=== PATIENT | male | born 1965 | race Caucasian/White ===

== ENCOUNTER → 2017-12-16 09:24 | Outpatient (CLI) | payer OTHER, SELFPAY ==
[2017-12-16 13:14] LABS: Basophils # 0.1 K/mm3 (0-0.2); Basophils % 0.9 % (0.1-2.0); Eosinophils # 0.2 K/mm3 (0.0-0.4); Eosinophils % 3.3 % (0.1-12.0); Hematocrit 43.3 % (42.0-52.0); Hemoglobin 14.2 g/dL (14.1-18.0); Lymphocytes # 0.9 K/mm3 (0.7-4.5); Lymphocytes % 13.1 K/mm3 (10-50); Mean Corpuscular HGB Conc 32.8 g/dL (31.8-35.4); Mean Corpuscular Hemoglobin 29.9 pg (27.0-31.2); Mean Corpuscular Volume 91.3 fl (80-94); Mean Platelet Volume 8.1 fl (7.4-10.4); Monocytes # 0.6 K/mm3 (0.1-1.0); Monocytes % 9.9 % (1.7-9.3); Neutrophils # 4.8 K/mm3 (1.8-7.8); Neutrophils % 72.8 % (37.0-80.0); Platelet Count 342 K/mm3 (142-424); Red Blood Count 4.75 M/mm3 (4.60-6.20); Red Cell Distribution Width 13.6 % (11.5-17.5); White Blood Count 6.5 K/mm3 (4.8-10.8)
[2017-12-16 14:46] LABS: Alanine Aminotransferase 29 U/L (12-78); Albumin/Globulin Ratio 1.5 (1.1-1.8); Alkaline Phosphatase 87 U/L (46-116); Anion Gap 12.3 mEq/L (5-15); Aspartate Amino Transferase 21 U/L (15-37); Bilirubin,Total 0.3 mg/dL (0.2-1.0); Blood Urea Nitrogen 19 mg/dL (7-18); Calcium 8.8 mg/dL (8.5-10.1); Carbon Dioxide 27 mmol/L (21.0-32.0); Chloride 105 mmol/L (98-107); Creatinine,Serum 0.93 mg/dL (0.70-1.30); Estimated Glomerular Filt Rate 85 ml/min (>60); GFR (African American) 103 ML/MIN (>60); Globulin 2.6 gm/dl (1.3-3.2); Glucose 96 mg/dL (74-106); Potassium 4.3 mmoL/L (3.5-5.1); Sodium 140 mmol/L (136-145); Total Protein,Serum 6.6 gm/dL (6.4-8.2)
== END ==
PROVIDERS: PCP Internal Medicine Adolescent Medicine; Visit Provider Internal Medicine Gastroenterology
DX: K50.90 Crohn's disease, unspecified, without complications (principal)
CPT/HCPCS: 36415; 80053; 85025

== ENCOUNTER → 2018-04-29 10:26 | Outpatient (CLI) | payer OTHER, SELFPAY ==
[2018-04-29 14:02] LABS: Basophils % 0.8 % (0.1-2.0); Eosinophils # 0.2 K/mm3 (0.0-0.4); Hematocrit 43.9 % (42.0-52.0); Hemoglobin 14.3 g/dL (14.1-18.0); Lymphocytes % 22.8 K/mm3 (10-50); Mean Corpuscular HGB Conc 32.6 g/dL (31.8-35.4); Mean Corpuscular Hemoglobin 29.6 pg (27.0-31.2); Mean Corpuscular Volume 90.9 fl (80-94); Mean Platelet Volume 8.4 fl (7.4-10.4); Monocytes # 0.3 K/mm3 (0.1-1.0); Monocytes % 6.8 % (1.7-9.3); Neutrophils % 65.7 % (37.0-80.0); Platelet Count 339 K/mm3 (142-424); Red Blood Count 4.83 M/mm3 (4.60-6.20); Red Cell Distribution Width 13.5 % (11.5-17.5); White Blood Count 4.5 K/mm3 (4.8-10.8)
[2018-04-29 14:11] LABS: Alanine Aminotransferase 46 U/L (12-78); Albumin Level 4.3 gm/dL (3.4-5.0); Albumin/Globulin Ratio 1.3 (1.1-1.8); Alkaline Phosphatase 97 U/L (46-116); Anion Gap 14.1 mEq/L (5-15); Aspartate Amino Transferase 34 U/L (15-37); Bilirubin,Total 0.5 mg/dL (0.2-1.0); Blood Urea Nitrogen 23 mg/dL (7-18); Calcium 9.2 mg/dL (8.5-10.1); Carbon Dioxide 24 mmol/L (21.0-32.0); Chloride 105 mmol/L (98-107); Creatinine,Serum 1.09 mg/dL (0.70-1.30); Estimated Glomerular Filt Rate 71 ml/min (>60); GFR (African American) 86 ML/MIN (>60); Globulin 3.2 gm/dl (1.3-3.2); Glucose 126 mg/dL (74-106); Potassium 4.1 mmoL/L (3.5-5.1); Sodium 139 mmol/L (136-145); Total Protein,Serum 7.5 gm/dL (6.4-8.2)
== END ==
PROVIDERS: Visit Provider Internal Medicine Gastroenterology
DX: K50.90 Crohn's disease, unspecified, without complications (principal)
CPT/HCPCS: 36415; 80053; 85025

== ENCOUNTER → 2018-05-19 09:49 | Outpatient (CLI) | payer OTHER, SELFPAY ==
[2018-05-19 13:57] LABS: Basophils % 0.7 % (0.1-2.0); Eosinophils # 0.2 K/mm3 (0.0-0.4); Eosinophils % 4.3 % (0.1-12.0); Hematocrit 42.9 % (42.0-52.0); Hemoglobin 14.3 g/dL (14.1-18.0); Lymphocytes # 1.1 K/mm3 (0.7-4.5); Lymphocytes % 22.2 K/mm3 (10-50); Mean Corpuscular HGB Conc 33.3 g/dL (31.8-35.4); Mean Corpuscular Hemoglobin 30.5 pg (27.0-31.2); Mean Corpuscular Volume 91.6 fl (80-94); Monocytes # 0.3 K/mm3 (0.1-1.0); Monocytes % 6.4 % (1.7-9.3); Neutrophils # 3.4 K/mm3 (1.8-7.8); Neutrophils % 66.4 % (37.0-80.0); Platelet Count 341 K/mm3 (142-424); Red Blood Count 4.68 M/mm3 (4.60-6.20); Red Cell Distribution Width 13.7 % (11.5-17.5); White Blood Count 5.1 K/mm3 (4.8-10.8)
[2018-05-19 14:02] LABS: Alanine Aminotransferase 38 U/L (12-78); Albumin Level 4.1 gm/dL (3.4-5.0); Albumin/Globulin Ratio 1.3 (1.1-1.8); Alkaline Phosphatase 96 U/L (46-116); Anion Gap 13.9 mEq/L (5-15); Aspartate Amino Transferase 27 U/L (15-37); Bilirubin,Total 0.4 mg/dL (0.2-1.0); Blood Urea Nitrogen 19 mg/dL (7-18); Calcium 9.4 mg/dL (8.5-10.1); Carbon Dioxide 26 mmol/L (21.0-32.0); Chloride 106 mmol/L (98-107); Creatinine,Serum 0.93 mg/dL (0.70-1.30); Estimated Glomerular Filt Rate 85 ml/min (>60); GFR (African American) 103 ML/MIN (>60); Globulin 3.1 gm/dl (1.3-3.2); Glucose 98 mg/dL (74-106); Potassium 4.9 mmoL/L (3.5-5.1); Sodium 141 mmol/L (136-145); Total Protein,Serum 7.2 gm/dL (6.4-8.2)
== END ==
PROVIDERS: Visit Provider Internal Medicine Gastroenterology
DX: D72.819 Decreased white blood cell count, unspecified (principal)
CPT/HCPCS: 36415; 80053; 85025

== ENCOUNTER → 2018-10-06 10:15 | Outpatient (CLI) | payer OTHER, SELFPAY ==
[2018-10-06 13:58] LABS: Basophils % 0.9 % (0.1-2.0); Eosinophils # 0.2 K/mm3 (0.0-0.4); Eosinophils % 3.7 % (0.1-12.0); Hematocrit 44.3 % (42.0-52.0); Hemoglobin 14.4 g/dL (14.1-18.0); Lymphocytes # 0.9 K/mm3 (0.7-4.5); Lymphocytes % 21.3 % (10-50); Mean Corpuscular HGB Conc 32.5 g/dL (31.8-35.4); Mean Corpuscular Hemoglobin 29.8 pg (27.0-31.2); Mean Corpuscular Volume 91.7 fl (80-94); Mean Platelet Volume 8.5 fl (7.4-10.4); Monocytes # 0.2 K/mm3 (0.1-1.0); Monocytes % 5.5 % (1.7-9.3); Neutrophils % 68.6 % (37.0-80.0); Platelet Count 363 K/mm3 (142-424); Red Blood Count 4.83 M/mm3 (4.60-6.20); Red Cell Distribution Width 13.2 % (11.5-17.5); White Blood Count 4.3 K/mm3 (4.8-10.8)
[2018-10-06 14:02] LABS: Alanine Aminotransferase 34 U/L (12-78); Albumin Level 4.3 gm/dL (3.4-5.0); Albumin/Globulin Ratio 1.3 (1.1-1.8); Alkaline Phosphatase 105 U/L (46-116); Aspartate Amino Transferase 21 U/L (15-37); Bilirubin,Total 0.5 mg/dL (0.2-1.0); Blood Urea Nitrogen 23 mg/dL (7-18); Calcium 9.4 mg/dL (8.5-10.1); Carbon Dioxide 26 mmol/L (21.0-32.0); Chloride 103 mmol/L (98-107); Creatinine,Serum 0.98 mg/dL (0.70-1.30); Estimated Glomerular Filt Rate 80 ml/min (>60); GFR (African American) 97 ML/MIN (>60); Globulin 3.3 gm/dl (1.3-3.2); Glucose 101 mg/dL (74-106); Sodium 138 mmol/L (136-145); Total Protein,Serum 7.6 gm/dL (6.4-8.2)
[2018-10-06 14:33] LABS: C-Reactive Protein < 0.2 mg/L (0.0-0.9)
[2018-10-07 11:14] LABS: Vitamin B12 657 pg/mL (232-1245)
== END ==
PROVIDERS: PCP Internal Medicine Adolescent Medicine; Visit Provider Internal Medicine Gastroenterology
DX: D72.819 Decreased white blood cell count, unspecified (principal)
CPT/HCPCS: 36415; 80053; 82607; 85025; 86140

== ENCOUNTER → 2018-10-07 09:31 | Outpatient (CLI) | payer OTHER, SELFPAY ==
[2018-10-12 21:27] LABS: Calprotectin, Fecal 78 ug/g (0-120)
== END ==
PROVIDERS: PCP Internal Medicine Adolescent Medicine; Visit Provider Internal Medicine Gastroenterology
DX: D72.819 Decreased white blood cell count, unspecified (principal)
CPT/HCPCS: 83993

== ENCOUNTER → 2019-02-03 08:33 | Outpatient (CLI) | payer OTHER, SELFPAY ==
[2019-02-03 14:01] LABS: Basophils # 0.1 K/mm3 (0-0.2); Basophils % 0.9 % (0.1-2.0); Eosinophils # 0.3 K/mm3 (0.0-0.4); Eosinophils % 4.6 % (0.1-12.0); Hematocrit 41.6 % (42.0-52.0); Hemoglobin 14.2 g/dL (14.1-18.0); Lymphocytes # 1.1 K/mm3 (0.7-4.5); Lymphocytes % 21.5 % (10-50); Mean Corpuscular HGB Conc 34.2 g/dL (31.8-35.4); Mean Corpuscular Hemoglobin 30.2 pg (27.0-31.2); Mean Corpuscular Volume 88.4 fl (80-94); Mean Platelet Volume 8.2 fl (7.4-10.4); Monocytes # 0.2 K/mm3 (0.1-1.0); Monocytes % 3.8 % (1.7-9.3); Neutrophils # 3.7 K/mm3 (1.8-7.8); Neutrophils % 69.3 % (37.0-80.0); Platelet Count 321 K/mm3 (142-424); Red Cell Distribution Width 13.3 % (11.5-17.5); White Blood Count 5.3 K/mm3 (4.8-10.8)
[2019-02-03 14:58] LABS: Alanine Aminotransferase 34 U/L (12-78); Albumin Level 4.2 gm/dL (3.4-5.0); Albumin/Globulin Ratio 1.4 (1.1-1.8); Alkaline Phosphatase 94 U/L (46-116); Anion Gap 14.4 mEq/L (5-15); Aspartate Amino Transferase 14 U/L (15-37); Bilirubin,Total 0.3 mg/dL (0.2-1.0); Blood Urea Nitrogen 20 mg/dL (7-18); Carbon Dioxide 26 mmol/L (21.0-32.0); Chloride 104 mmol/L (98-107); Creatinine,Serum 1.04 mg/dL (0.70-1.30); Estimated Glomerular Filt Rate 74 ml/min (>60); GFR (African American) 90 ML/MIN (>60); Globulin 3.1 gm/dl (1.3-3.2); Glucose 130 mg/dL (74-106); Potassium 4.4 mmoL/L (3.5-5.1); Sodium 140 mmol/L (136-145); Total Protein,Serum 7.3 gm/dL (6.4-8.2)
[2019-02-03 15:00] LABS: C-Reactive Protein < 0.2 mg/L (0.0-0.9)
== END ==
PROVIDERS: PCP Internal Medicine Adolescent Medicine; Visit Provider Internal Medicine Gastroenterology
DX: K50.90 Crohn's disease, unspecified, without complications (principal)
CPT/HCPCS: 36415; 80053; 85025; 86140

== ENCOUNTER → 2019-05-01 10:14 | Outpatient (CLI) | payer OTHER, SELFPAY ==
[2019-05-01 13:35] LABS: Basophils % 0.9 % (0.1-2.0); Eosinophils # 0.2 K/mm3 (0.0-0.4); Hematocrit 42.2 % (42.0-52.0); Hemoglobin 13.6 g/dL (14.1-18.0); Lymphocytes # 1.1 K/mm3 (0.7-4.5); Lymphocytes % 23.3 % (10-50); Mean Corpuscular HGB Conc 32.2 g/dL (31.8-35.4); Mean Corpuscular Hemoglobin 28.4 pg (27.0-31.2); Mean Corpuscular Volume 88.3 fl (80-94); Mean Platelet Volume 8.4 fl (7.4-10.4); Monocytes # 0.4 K/mm3 (0.1-1.0); Monocytes % 7.3 % (1.7-9.3); Neutrophils # 3.1 K/mm3 (1.8-7.8); Neutrophils % 64.7 % (37.0-80.0); Platelet Count 372 K/mm3 (142-424); Red Blood Count 4.77 M/mm3 (4.60-6.20); Red Cell Distribution Width 13.4 % (11.5-17.5); White Blood Count 4.8 K/mm3 (4.8-10.8)
[2019-05-01 15:53] LABS: Alanine Aminotransferase 38 U/L (12-78); Albumin Level 3.9 gm/dL (3.4-5.0); Albumin/Globulin Ratio 1.3 (1.1-1.8); Alkaline Phosphatase 102 U/L (46-116); Anion Gap 12.6 mEq/L (5-15); Aspartate Amino Transferase 25 U/L (15-37); Bilirubin,Total 0.4 mg/dL (0.2-1.0); Blood Urea Nitrogen 21 mg/dL (7-18); Calcium 9.3 mg/dL (8.5-10.1); Carbon Dioxide 26 mmol/L (21.0-32.0); Chloride 105 mmol/L (98-107); Creatinine,Serum 1.05 mg/dL (0.70-1.30); Estimated Glomerular Filt Rate 74 ml/min (>60); GFR (African American) 89 ML/MIN (>60); Globulin 2.9 gm/dl (1.3-3.2); Glucose 93 mg/dL (74-106); Potassium 4.6 mmoL/L (3.5-5.1); Sodium 139 mmol/L (136-145); Total Protein,Serum 6.8 gm/dL (6.4-8.2)
[2019-05-01 16:49] LABS: C-Reactive Protein < 0.2 mg/L (0.0-0.9)
== END ==
PROVIDERS: PCP Internal Medicine Adolescent Medicine; Visit Provider Internal Medicine Gastroenterology
DX: K50.90 Crohn's disease, unspecified, without complications (principal)
CPT/HCPCS: 36415; 80053; 85025; 86140

== ENCOUNTER → 2019-06-23 08:30 | Outpatient (CLI) | payer OTHER, SELFPAY ==
[2019-06-23 13:59] LABS: Alanine Aminotransferase 35 U/L (12-78); Albumin Level 4.4 gm/dL (3.4-5.0); Albumin/Globulin Ratio 1.5 (1.1-1.8); Alkaline Phosphatase 92 U/L (46-116); Anion Gap 14.1 mEq/L (5-15); Aspartate Amino Transferase 31 U/L (15-37); Bilirubin,Total 0.4 mg/dL (0.2-1.0); Blood Urea Nitrogen 23 mg/dL (7-18); Calcium 9.6 mg/dL (8.5-10.1); Carbon Dioxide 28 mmol/L (21.0-32.0); Chloride 103 mmol/L (98-107); Creatinine,Serum 1.02 mg/dL (0.70-1.30); Estimated Glomerular Filt Rate 76 ml/min (>60); GFR (African American) 92 ML/MIN (>60); Glucose 99 mg/dL (74-106); Potassium 5.1 mmoL/L (3.5-5.1); Sodium 140 mmol/L (136-145); Total Protein,Serum 7.4 gm/dL (6.4-8.2)
[2019-06-23 14:12] LABS: Basophils % 0.6 % (0.1-2.0); Eosinophils # 0.3 K/mm3 (0.0-0.4); Eosinophils % 5.7 % (0.1-12.0); Hemoglobin 14.3 g/dL (14.1-18.0); Lymphocytes # 1.2 K/mm3 (0.7-4.5); Lymphocytes % 26.2 % (10-50); Mean Corpuscular HGB Conc 33.2 g/dL (31.8-35.4); Mean Corpuscular Hemoglobin 30.5 pg (27.0-31.2); Mean Corpuscular Volume 91.8 fl (80-94); Mean Platelet Volume 8.3 fl (7.4-10.4); Monocytes # 0.3 K/mm3 (0.1-1.0); Monocytes % 7.1 % (1.7-9.3); Neutrophils # 2.7 K/mm3 (1.8-7.8); Neutrophils % 60.3 % (37.0-80.0); Platelet Count 360 K/mm3 (142-424); Red Blood Count 4.68 M/mm3 (4.60-6.20); Red Cell Distribution Width 13.4 % (11.5-17.5); White Blood Count 4.5 K/mm3 (4.8-10.8)
== END ==
PROVIDERS: PCP Internal Medicine Adolescent Medicine; Visit Provider Internal Medicine Gastroenterology
DX: K50.90 Crohn's disease, unspecified, without complications (principal)
CPT/HCPCS: 36415; 80053; 85025

== ENCOUNTER → 2019-07-29 08:36 | Outpatient (CLI) | payer OTHER, SELFPAY ==
[2019-07-31 06:55] LABS: Calprotectin, Fecal <16 ug/g (0-120)
== END ==
PROVIDERS: Visit Provider Internal Medicine Gastroenterology
DX: K50.90 Crohn's disease, unspecified, without complications (principal)
CPT/HCPCS: 83993

== ENCOUNTER → 2019-11-11 08:32 | Outpatient (CLI) | payer OTHER, SELFPAY ==
[2019-11-11 13:47] LABS: Basophils # 0.1 K/mm3 (0-0.2); Basophils % 1.2 % (0.1-2.0); Eosinophils # 0.2 K/mm3 (0.0-0.4); Eosinophils % 4.2 % (0.1-12.0); Hematocrit 44.2 % (42.0-52.0); Hemoglobin 14.4 g/dL (14.1-18.0); Lymphocytes # 1.1 K/mm3 (0.7-4.5); Lymphocytes % 24.8 % (10-50); Mean Corpuscular HGB Conc 32.5 g/dL (31.8-35.4); Mean Corpuscular Hemoglobin 29.6 pg (27.0-31.2); Mean Platelet Volume 8.5 fl (7.4-10.4); Monocytes # 0.2 K/mm3 (0.1-1.0); Monocytes % 5.5 % (1.7-9.3); Neutrophils # 2.8 K/mm3 (1.8-7.8); Neutrophils % 64.3 % (37.0-80.0); Platelet Count 415 K/mm3 (142-424); Red Blood Count 4.85 M/mm3 (4.60-6.20); Red Cell Distribution Width 13.1 % (11.5-17.5); White Blood Count 4.3 K/mm3 (4.8-10.8)
[2019-11-11 13:51] LABS: Alanine Aminotransferase 23 U/L (12-78); Albumin Level 4.2 gm/dL (3.4-5.0); Albumin/Globulin Ratio 1.4 (1.1-1.8); Alkaline Phosphatase 91 U/L (46-116); Anion Gap 15.7 mEq/L (5-15); Aspartate Amino Transferase 21 U/L (15-37); Bilirubin,Total 0.4 mg/dL (0.2-1.0); Blood Urea Nitrogen 25 mg/dL (7-18); Calcium 9.5 mg/dL (8.5-10.1); Carbon Dioxide 26 mmol/L (21.0-32.0); Chloride 105 mmol/L (98-107); Creatinine,Serum 1.18 mg/dL (0.70-1.30); Estimated Glomerular Filt Rate 64 ml/min (>60); GFR (African American) 78 ML/MIN (>60); Globulin 3.1 gm/dl (1.3-3.2); Glucose 96 mg/dL (74-106); Potassium 4.7 mmoL/L (3.5-5.1); Sodium 142 mmol/L (136-145); Total Protein,Serum 7.3 gm/dL (6.4-8.2)
[2019-11-11 15:18] LABS: C-Reactive Protein < 0.2 mg/dL (0.0-0.9)
== END ==
PROVIDERS: PCP Internal Medicine Adolescent Medicine; Visit Provider Physician Assistant
DX: K50.90 Crohn's disease, unspecified, without complications (principal)
CPT/HCPCS: 36415; 80053; 85025; 86140

== ENCOUNTER → 2020-03-08 09:39 | Outpatient (CLI) | payer OTHER, SELFPAY ==
[2020-03-08 10:01] LABS: Basophils # 0.1 K/mm3 (0-0.2); Basophils % 1.1 % (0.1-2.0); Eosinophils # 0.2 K/mm3 (0.0-0.4); Hematocrit 42.7 % (42.0-52.0); Hemoglobin 13.9 g/dL (14.1-18.0); Mean Corpuscular HGB Conc 32.4 g/dL (31.8-35.4); Mean Corpuscular Hemoglobin 29.1 pg (27.0-31.2); Mean Corpuscular Volume 89.8 fl (80-94); Mean Platelet Volume 7.6 fl (7.4-10.4); Monocytes # 0.5 K/mm3 (0.1-1.0); Monocytes % 7.8 % (1.7-9.3); Neutrophils % 70.1 % (37.0-80.0); Platelet Count 303 K/mm3 (142-424); Red Blood Count 4.76 M/mm3 (4.60-6.20); Red Cell Distribution Width 13.9 % (11.5-17.5); White Blood Count 5.8 K/mm3 (4.8-10.8)
== END ==
PROVIDERS: Visit Provider Internal Medicine Gastroenterology
DX: K50.90 Crohn's disease, unspecified, without complications (principal)
CPT/HCPCS: 36415; 85025

== ENCOUNTER → 2020-03-10 12:44 | Outpatient (CLI) | payer OTHER, SELFPAY ==
[2020-03-10 16:46] LABS: Chloride 103 mmol/L (98-107); Potassium 4.5 mmoL/L (3.5-5.1); Sodium 137 mmol/L (136-145)
[2020-03-10 16:48] LABS: Blood Urea Nitrogen 17 mg/dl (9-20); Estimated Glomerular Filt Rate 88 ml/min (>60); GFR (African American) 106 ML/MIN (>60)
[2020-03-10 16:49] LABS: Alanine Aminotransferase 31 U/L (12-78); Albumin Level 4.4 g/dl (3.5-5.0); Albumin/Globulin Ratio 1.7 (1.1-1.8); Alkaline Phosphatase 85 U/L (38-126); Anion Gap 12.5 mEq/L (5-15); Aspartate Amino Transferase 36 U/L (17-59); Bilirubin,Total 0.6 mg/dl (0.2-1.3); Calcium 9.7 mg/dl (8.4-10.2); Carbon Dioxide 26 mmol/L (22.0-30.0); Globulin 2.6 g/dL (1.3-3.2); Glucose 84 mg/dl (74-100)
== END ==
PROVIDERS: Visit Provider Physician Assistant
DX: K50.90 Crohn's disease, unspecified, without complications (principal)
CPT/HCPCS: 36415; 80053

== ENCOUNTER 2020-04-26 19:37 | Emergency (ER) | payer OTHER, SELFPAY ==
[2020-04-26 19:54] VITALS: BP 140/86; PULSE 80; RESP 20; O2SAT 99; BMI 26.6
--- NOTE | 2020-04-26 20:01 | HMH.EDUTC ---
[facility] Disposition Clinical Impression: Pseudogout Disposition: Home, Self-Care Condition on Discharge: Good Instructions: DI for Gout, DI for Pseudogout, Indomethacin Additional Instructions: NO Ibuprofen for the rest of the night Take Colcrys as prescribed Follow up with Family doctor if no improvement or any worsening of symptoms Return if needed Straight to ER if any life threatening symptoms Prescriptions: Colchicine [Colcrys 0.6mg tablet] 0.6 mg PO DIRECTED #3 tab Transmission Status: Sent to [facility] Referrals: Randy Gates MD [Primary Care Provider] - As needed Time of Disposition: 20:51 Medical Decision Making - Biju Inquiry Pt receiving controlled substance: No Biju was queried for this patient: No Vital Signs: 04/26/20 19:54 Pulse Rate [Right Brachial] 80 Respiratory Rate 20 Blood Pressure [Right Arm] 140/86 Blood Pressure Mean [Right Arm] 104 Blood Pressure Source [Right Arm] Automatic Cuff Blood Pressure Position [Right Arm] Sitting 02 Sat by Pulse Oximetry 99 Oxygen Delivery Method Room Air - Lab Data Lab Results 04/26/20 20:00: Uric Acid 8.1 Orders (Tests/Meds): ED MEDICATIONS Discontinued Medications Generic Name Dose Route Start Last Admin Trade Name Freq PRN Reason Stop Dose Admin Ketorolac Tromethamine 60 mg 04/26/20 20:30 04/26/20 20:53 Toradol 60mg/2ml Vial IM 04/26/20 20:31 Not Given ONCE ONE Ketorolac Tromethamine 30 mg 04/26/20 20:44 04/26/20 20:52 Toradol 60mg/2ml Vial IM 04/26/20 20:45 30 mg ONCE ONE Administration Methylprednisolone Sodium Succinate 125 mg 04/26/20 20:30 04/26/20 20:52 Solu-Medrol 125mg/2ml Vial IM 04/26/20 20:31 125 mg ONCE ONE Administration Medical Decision Narrative: Discussed xray and patient declined no known injury [facility] HPI - General Stated complaint: Pain in left big toe Time Seen by Provider: 04/26/20 20:01 Mode of Arrival: Ambulatory Source of Information: Patient Limitations: No Limitations Description of Symptoms (Recalled from Triage Doc. by RN): PATIENT STATES THAT HE WOKE UP THIS MORNING WITH PAIN AND SWELLING IN HIS LEFT GREAT TOE. NO KNOWN INJURY. HE DOES HAVE A HISTORY OF BEING TREATED FOR GOUT HEENT Symptoms (Recalled from RN notes): No Resp Symptoms (Recalled from RN notes): No Skin Symptoms (Recalled from RN notes): No MS Symptoms (Recalled from RN notes): Yes Functional Status (Recalled from RN notes): WNL - History of Present Illness Provider Complaint: Patient states that he has a history of gout States that he has problems with it on and off States that he woke up this morning with pain and stiffness in his left great toe that has continued to get worse throughout the day Denies known injury - Related Data Home Medications Medication Instructions Recorded Confirmed Amlodipine Besylate [Amlodipine 5 mg PO DAILY 04/26/20 04/26/20 5mg tab] Rosuvastatin Calcium [Crestor 5mg 5 mg PO DAILY 04/26/20 04/26/20 Tablets] azaTHIOprine [azaTHIOprine 50mg 25 mg PO DAILY 04/26/20 04/26/20 Tablet] Previous Rx's Medication Instructions Recorded Colchicine [Colcrys 0.6mg tablet] 0.6 mg PO DIRECTED #3 tab 04/26/20 Allergies Allergy/AdvReac Type Severity Reaction Status Date / Time allopurinol Allergy Verified 04/26/20 19:58 Penicillins Allergy Verified 04/26/20 19:58 - Worker's Comp Is this a Worker's Comp case?: No [facility] History - Hepatitis A Screen Drug use history?: No High risk sexual behaviors?: No History of sexually transmitted infection?: No Currently employed?: No Childcare worker?: No Do you have indoor plumbing?: Yes Do you have electricity?: Yes Attestation statement:: This patient has been screened for Hepatitis A risk factors. I have reviewed the patient's past medical history: Yes - Social History Alcohol Intake: never Occupational Status: other ROS Obtained: Yes All systems reviewed & no add
[2020-04-26 20:16] LABS: Uric Acid 8.1 mg/dl (3.5-8.5)
[2020-04-26 21:10] VITALS: BP 104/86; PULSE 80; RESP 20; TEMP 36.9; O2SAT 99
== END 2020-04-26 21:15 | disposition home or self-care (01) ==
PROVIDERS: Emergency Provider Nurse Practitioner; PCP Internal Medicine Adolescent Medicine
DX: M10.072 Idiopathic gout, left ankle and foot (principal)
CPT/HCPCS: 84550; 96372; 99201; 99202

== ENCOUNTER → 2020-06-29 09:11 | Outpatient (CLI) | payer OTHER, SELFPAY ==
[2020-06-29 14:43] LABS: Alanine Aminotransferase 22 U/L (12-78); Albumin Level 4.4 g/dl (3.5-5.0); Albumin/Globulin Ratio 1.7 (1.1-1.8); Alkaline Phosphatase 89 U/L (38-126); Anion Gap 13.5 mEq/L (5-15); Aspartate Amino Transferase 32 U/L (17-59); Bilirubin,Total 0.5 mg/dl (0.2-1.3); Blood Urea Nitrogen 18 mg/dl (9-20); Calcium 9.7 mg/dl (8.4-10.2); Carbon Dioxide 29 mmol/L (22.0-30.0); Chloride 102 mmol/L (98-107); Estimated Glomerular Filt Rate 88 ml/min (>60); GFR (African American) 106 ML/MIN (>60); Globulin 2.6 g/dL (1.3-3.2); Glucose 87 mg/dl (74-100); Potassium 4.5 mmoL/L (3.5-5.1); Sodium 140 mmol/L (136-145)
[2020-06-29 14:44] LABS: Basophils # 0.1 K/mm3 (0-0.2); Basophils % 0.9 % (0.1-2.0); Eosinophils # 0.2 K/mm3 (0.0-0.4); Eosinophils % 4.3 % (0.1-12.0); Hematocrit 42.2 % (42.0-52.0); Hemoglobin 14.7 g/dL (14.1-18.0); Lymphocytes # 1.2 K/mm3 (0.7-4.5); Lymphocytes % 20.2 % (10-50); Mean Corpuscular HGB Conc 34.9 g/dL (31.8-35.4); Mean Corpuscular Hemoglobin 31.1 pg (27.0-31.2); Mean Corpuscular Volume 89.2 fl (80-94); Mean Platelet Volume 9.4 fl (7.4-10.4); Monocytes # 0.4 K/mm3 (0.1-1.0); Monocytes % 6.2 % (1.7-9.3); Neutrophils # 3.9 K/mm3 (1.8-7.8); Neutrophils % 68.5 % (37.0-80.0); Platelet Count 314 K/mm3 (142-424); Red Blood Count 4.73 M/mm3 (4.60-6.20); Red Cell Distribution Width 13.6 % (11.5-17.5); White Blood Count 5.7 K/mm3 (4.8-10.8)
== END ==
PROVIDERS: Visit Provider Physician Assistant
DX: K50.90 Crohn's disease, unspecified, without complications (principal)
CPT/HCPCS: 36415; 80053; 85025

== ENCOUNTER → 2020-08-03 09:20 | Outpatient (CLI) | payer OTHER, SELFPAY ==
[2020-08-03 10:14] LABS: Basophils # 0.1 K/mm3 (0-0.2); Basophils % 0.9 % (0.1-2.0); Eosinophils # 0.2 K/mm3 (0.0-0.4); Eosinophils % 3.7 % (0.1-12.0); Hematocrit 45.9 % (42.0-52.0); Hemoglobin 14.9 g/dL (14.1-18.0); Lymphocytes % 18.5 % (10-50); Mean Corpuscular HGB Conc 32.6 g/dL (31.8-35.4); Mean Corpuscular Hemoglobin 30.5 pg (27.0-31.2); Mean Corpuscular Volume 93.8 fl (80-94); Mean Platelet Volume 7.7 fl (7.4-10.4); Monocytes # 0.4 K/mm3 (0.1-1.0); Monocytes % 6.5 % (1.7-9.3); Neutrophils % 70.5 % (37.0-80.0); Platelet Count 295 K/mm3 (142-424); Red Blood Count 4.89 M/mm3 (4.60-6.20); Red Cell Distribution Width 13.5 % (11.5-17.5); White Blood Count 5.6 K/mm3 (4.8-10.8)
[2020-08-03 11:25] LABS: Alanine Aminotransferase 28 U/L (12-78); Albumin Level 4.6 g/dl (3.5-5.0); Albumin/Globulin Ratio 1.7 (1.1-1.8); Alkaline Phosphatase 93 U/L (38-126); Aspartate Amino Transferase 36 U/L (17-59); Bilirubin,Total 0.5 mg/dl (0.2-1.3); Blood Urea Nitrogen 17 mg/dl (9-20); Calcium 9.8 mg/dl (8.4-10.2); Carbon Dioxide 28 mmol/L (22.0-30.0); Chloride 105 mmol/L (98-107); Estimated Glomerular Filt Rate 88 ml/min (>60); GFR (African American) 106 ML/MIN (>60); Globulin 2.7 g/dL (1.3-3.2); Glucose 100 mg/dl (74-100); Sodium 141 mmol/L (136-145); Total Protein,Serum 7.3 g/dl (6.3-8.2)
[2020-08-03 11:52] LABS: Thyroid Stimulating Hormone 1.07 uIU/mL (0.465-4.68)
== END ==
PROVIDERS: Visit Provider Internal Medicine Adolescent Medicine
DX: I10 Essential (primary) hypertension (principal); Z79.899 Other long term (current) drug therapy
CPT/HCPCS: 36415; 80053; 84443; 85025

== ENCOUNTER → 2020-10-11 08:58 | Outpatient (CLI) | payer OTHER, SELFPAY ==
[2020-10-11 14:01] LABS: Chloride 103 mmol/L (98-107); Potassium 4.3 mmoL/L (3.5-5.1); Sodium 139 mmol/L (136-145)
[2020-10-11 14:04] LABS: Alanine Aminotransferase 27 U/L (12-78); Albumin Level 4.4 g/dl (3.5-5.0); Albumin/Globulin Ratio 1.5 (1.1-1.8); Alkaline Phosphatase 84 U/L (38-126); Anion Gap 10.3 mEq/L (5-15); Aspartate Amino Transferase 32 U/L (17-59); Bilirubin,Total 0.6 mg/dl (0.2-1.3); Blood Urea Nitrogen 17 mg/dl (9-20); Carbon Dioxide 30 mmol/L (22.0-30.0); Estimated Glomerular Filt Rate 78 ml/min (>60); GFR (African American) 94 ML/MIN (>60); Globulin 2.9 g/dL (1.3-3.2); Total Protein,Serum 7.3 g/dl (6.3-8.2)
[2020-10-11 14:05] LABS: Calcium 9.7 mg/dl (8.4-10.2); Glucose 100 mg/dl (74-100)
[2020-10-11 14:16] LABS: Basophils # 0.1 K/mm3 (0-0.2); Eosinophils # 0.2 K/mm3 (0.0-0.4); Eosinophils % 3.5 % (0.1-12.0); Hematocrit 45.7 % (42.0-52.0); Hemoglobin 15.4 g/dL (14.1-18.0); Lymphocytes # 1.1 K/mm3 (0.7-4.5); Mean Corpuscular HGB Conc 33.7 g/dL (31.8-35.4); Mean Corpuscular Hemoglobin 31.1 pg (27.0-31.2); Mean Corpuscular Volume 92.3 fl (80-94); Mean Platelet Volume 9.3 fl (7.4-10.4); Monocytes # 0.3 K/mm3 (0.1-1.0); Monocytes % 4.6 % (1.7-9.3); Neutrophils % 71.9 % (37.0-80.0); Platelet Count 353 K/mm3 (142-424); Red Blood Count 4.95 M/mm3 (4.60-6.20); Red Cell Distribution Width 13.5 % (11.5-17.5); White Blood Count 5.5 K/mm3 (4.8-10.8)
== END ==
PROVIDERS: Visit Provider Physician Assistant
DX: K50.90 Crohn's disease, unspecified, without complications (principal)
CPT/HCPCS: 36415; 80053; 85025

== ENCOUNTER → 2020-12-15 09:00 | Outpatient (CLI) | payer OTHER, SELFPAY ==
[2020-12-15 14:08] LABS: Chloride 106 mmol/L (98-107)
[2020-12-15 14:09] LABS: Potassium 4.8 mmoL/L (3.5-5.1); Sodium 139 mmol/L (136-145)
[2020-12-15 14:11] LABS: Alanine Aminotransferase 24 U/L (12-78); Aspartate Amino Transferase 29 U/L (17-59); Bilirubin,Total 0.4 mg/dl (0.2-1.3); Blood Urea Nitrogen 17 mg/dl (9-20); Estimated Glomerular Filt Rate 88 ml/min (>60); GFR (African American) 106 ML/MIN (>60)
[2020-12-15 14:12] LABS: Albumin Level 4.2 g/dl (3.5-5.0); Albumin/Globulin Ratio 1.5 (1.1-1.8); Alkaline Phosphatase 93 U/L (38-126); Anion Gap 7.8 mEq/L (5-15); Calcium 9.2 mg/dl (8.4-10.2); Carbon Dioxide 30 mmol/L (22.0-30.0); Globulin 2.8 g/dL (1.3-3.2); Glucose 112 mg/dl (74-100)
[2020-12-15 14:20] LABS: C-Reactive Protein 1.7 mg/L (0-4)
[2020-12-15 14:26] LABS: Basophils # 0.1 K/mm3 (0-0.2); Basophils % 0.8 % (0.1-2.0); Eosinophils # 0.2 K/mm3 (0.0-0.4); Eosinophils % 3.8 % (0.1-12.0); Hematocrit 41.9 % (42.0-52.0); Hemoglobin 13.8 g/dL (14.1-18.0); Lymphocytes % 16.3 % (10-50); Mean Corpuscular Hemoglobin 30.3 pg (27.0-31.2); Mean Corpuscular Volume 91.6 fl (80-94); Mean Platelet Volume 8.7 fl (7.4-10.4); Monocytes # 0.3 K/mm3 (0.1-1.0); Monocytes % 4.4 % (1.7-9.3); Neutrophils # 4.8 K/mm3 (1.8-7.8); Neutrophils % 74.8 % (37.0-80.0); Platelet Count 307 K/mm3 (142-424); Red Blood Count 4.57 M/mm3 (4.60-6.20); Red Cell Distribution Width 13.7 % (11.5-17.5); White Blood Count 6.4 K/mm3 (4.8-10.8)
== END ==
PROVIDERS: Visit Provider Physician Assistant
DX: K50.90 Crohn's disease, unspecified, without complications (principal)
CPT/HCPCS: 36415; 80053; 85025; 86140

== ENCOUNTER → 2020-12-16 09:09 | Outpatient (CLI) | payer OTHER, SELFPAY ==
[2020-12-21 14:57] LABS: H. pylori Stool Ag, EIA Negative (Negative)
[2020-12-21 18:15] LABS: Calprotectin, Fecal 129 ug/g (0-120)
== END ==
PROVIDERS: Visit Provider Physician Assistant
DX: K50.90 Crohn's disease, unspecified, without complications (principal)
CPT/HCPCS: 83993; 87338

== ENCOUNTER → 2021-03-22 08:58 | Outpatient (CLI) | payer OTHER, SELFPAY ==
[2021-03-22 14:47] LABS: Basophils % 0.6 % (0.1-2.0); Eosinophils # 0.2 K/mm3 (0.0-0.4); Eosinophils % 3.5 % (0.1-12.0); Hematocrit 40.5 % (42.0-52.0); Hemoglobin 14.1 g/dL (14.1-18.0); Lymphocytes # 1.1 K/mm3 (0.7-4.5); Lymphocytes % 15.8 % (10-50); Mean Corpuscular HGB Conc 34.7 g/dL (31.8-35.4); Mean Corpuscular Hemoglobin 30.1 pg (27.0-31.2); Mean Corpuscular Volume 86.8 fl (80-94); Mean Platelet Volume 8.9 fl (7.4-10.4); Monocytes # 0.4 K/mm3 (0.1-1.0); Monocytes % 5.3 % (1.7-9.3); Neutrophils % 74.8 % (37.0-80.0); Platelet Count 360 K/mm3 (142-424); Red Blood Count 4.66 M/mm3 (4.60-6.20); Red Cell Distribution Width 13.5 % (11.5-17.5); White Blood Count 6.7 K/mm3 (4.8-10.8)
[2021-03-22 15:15] LABS: Alanine Aminotransferase 27 U/L (12-78); Albumin Level 4.2 g/dl (3.5-5.0); Albumin/Globulin Ratio 1.6 (1.1-1.8); Alkaline Phosphatase 82 U/L (38-126); Anion Gap 11.4 mEq/L (5-15); Aspartate Amino Transferase 30 U/L (17-59); Bilirubin,Total 0.5 mg/dl (0.2-1.3); Blood Urea Nitrogen 19 mg/dl (9-20); Calcium 9.2 mg/dl (8.4-10.2); Carbon Dioxide 26 mmol/L (22.0-30.0); Chloride 106 mmol/L (98-107); Estimated Glomerular Filt Rate 87 ml/min (>60); GFR (African American) 106 ML/MIN (>60); Globulin 2.6 g/dL (1.3-3.2); Glucose 108 mg/dl (74-100); Potassium 4.4 mmoL/L (3.5-5.1); Sodium 139 mmol/L (136-145); Total Protein,Serum 6.8 g/dl (6.3-8.2)
[2021-03-22 15:23] LABS: C-Reactive Protein 1.9 mg/L (0-4)
[2021-03-27 01:27] LABS: H. pylori Stool Ag, EIA Negative (Negative)
[2021-03-30 21:10] LABS: Calprotectin, Fecal 101 ug/g (0-120)
== END ==
PROVIDERS: Visit Provider Physician Assistant
DX: K50.90 Crohn's disease, unspecified, without complications (principal)
CPT/HCPCS: 36415; 80053; 83993; 85025; 86140; 87338

== ENCOUNTER → 2021-06-16 09:19 | Outpatient (CLI) | payer OTHER, SELFPAY ==
[2021-06-16 09:47] LABS: Basophils # 0.1 K/mm3 (0-0.2); Basophils % 1.2 % (0.1-2.0); Eosinophils # 0.2 K/mm3 (0.0-0.4); Eosinophils % 2.7 % (0.1-12.0); Hematocrit 43.5 % (42.0-52.0); Hemoglobin 14.6 g/dL (14.1-18.0); Lymphocytes # 1.2 K/mm3 (0.7-4.5); Lymphocytes % 17.8 % (10-50); Mean Corpuscular HGB Conc 33.6 g/dL (31.8-35.4); Mean Corpuscular Hemoglobin 30.6 pg (27.0-31.2); Mean Platelet Volume 8.7 fl (7.4-10.4); Monocytes # 0.3 K/mm3 (0.1-1.0); Monocytes % 4.4 % (1.7-9.3); Neutrophils # 5.1 K/mm3 (1.8-7.8); Platelet Count 312 K/mm3 (142-424); Red Blood Count 4.79 M/mm3 (4.60-6.20); Red Cell Distribution Width 13.5 % (11.5-17.5); White Blood Count 6.9 K/mm3 (4.8-10.8)
[2021-06-16 10:37] LABS: Chloride 101 mmol/L (98-107); Sodium 141 mmol/L (136-145)
[2021-06-16 10:38] LABS: Potassium 4.4 mmoL/L (3.5-5.1)
[2021-06-16 10:40] LABS: Alanine Aminotransferase 25 U/L (12-78); Alkaline Phosphatase 71 U/L (38-126); Anion Gap 16.4 mEq/L (5-15); Aspartate Amino Transferase 32 U/L (17-59); Bilirubin,Total 0.4 mg/dl (0.2-1.3); Blood Urea Nitrogen 18 mg/dl (9-20); Carbon Dioxide 28 mmol/L (22.0-30.0); Estimated Glomerular Filt Rate 87 ml/min (>60); GFR (African American) 106 ML/MIN (>60)
[2021-06-16 10:41] LABS: Albumin Level 4.4 g/dl (3.5-5.0); Albumin/Globulin Ratio 1.8 (1.1-1.8); Calcium 9.6 mg/dl (8.4-10.2); Globulin 2.5 g/dL (1.3-3.2); Glucose 105 mg/dl (74-100); Total Protein,Serum 6.9 g/dl (6.3-8.2)
[2021-06-16 10:46] LABS: C-Reactive Protein 1.4 mg/L (0-4)
[2021-06-20 16:39] LABS: Calprotectin, Fecal 102 ug/g (0-120)
== END ==
PROVIDERS: Visit Provider Physician Assistant
DX: K50.00 Crohn's disease of small intestine without complications (principal)
CPT/HCPCS: 36415; 80053; 83993; 85025; 86140

== ENCOUNTER → 2021-09-12 08:41 | Outpatient (CLI) | payer OTHER, SELFPAY ==
[2021-09-12 14:30] LABS: Basophils # 0.1 K/mm3 (0-0.2); Basophils % 0.9 % (0.1-2.0); Eosinophils # 0.1 K/mm3 (0.0-0.4); Eosinophils % 1.6 % (0.1-12.0); Hematocrit 43.8 % (42.0-52.0); Hemoglobin 14.8 g/dL (14.1-18.0); Lymphocytes # 1.2 K/mm3 (0.7-4.5); Lymphocytes % 17.5 % (10-50); Mean Corpuscular HGB Conc 33.9 g/dL (31.8-35.4); Mean Corpuscular Hemoglobin 31.1 pg (27.0-31.2); Mean Corpuscular Volume 91.8 fl (80-94); Mean Platelet Volume 9.4 fl (7.4-10.4); Monocytes # 0.3 K/mm3 (0.1-1.0); Monocytes % 4.9 % (1.7-9.3); Neutrophils # 5.1 K/mm3 (1.8-7.8); Neutrophils % 75.2 % (37.0-80.0); Platelet Count 403 K/mm3 (142-424); Red Blood Count 4.77 M/mm3 (4.60-6.20); White Blood Count 6.7 K/mm3 (4.8-10.8)
[2021-09-12 15:04] LABS: Alanine Aminotransferase 22 U/L (12-78); Albumin Level 4.6 g/dl (3.5-5.0); Albumin/Globulin Ratio 1.8 (1.1-1.8); Alkaline Phosphatase 71 U/L (38-126); Anion Gap 9.8 mEq/L (5-15); Aspartate Amino Transferase 33 U/L (17-59); Bilirubin,Total 0.3 mg/dl (0.2-1.3); Blood Urea Nitrogen 17 mg/dl (9-20); Carbon Dioxide 32 mmol/L (22.0-30.0); Chloride 103 mmol/L (98-107); Estimated Glomerular Filt Rate 87 ml/min (>60); GFR (African American) 106 ML/MIN (>60); Globulin 2.6 g/dL (1.3-3.2); Glucose 81 mg/dl (74-100); Potassium 4.8 mmoL/L (3.5-5.1); Sodium 140 mmol/L (136-145); Total Protein,Serum 7.2 g/dl (6.3-8.2)
== END ==
PROVIDERS: Visit Provider Physician Assistant
DX: K50.00 Crohn's disease of small intestine without complications (principal)
CPT/HCPCS: 36415; 80053; 85025

== ENCOUNTER → 2021-12-08 12:41 | Outpatient (CLI) | payer OTHER, SELFPAY ==
[2021-12-08 13:10] LABS: Basophils # 0.1 K/mm3 (0-0.2); Basophils % 0.5 % (0.1-2.0); Eosinophils # 0.1 K/mm3 (0.0-0.4); Eosinophils % 1.2 % (0.1-12.0); Hematocrit 44.6 % (42.0-52.0); Hemoglobin 15.2 g/dL (14.1-18.0); Lymphocytes # 1.4 K/mm3 (0.7-4.5); Lymphocytes % 12.4 % (10-50); Mean Corpuscular Hemoglobin 30.8 pg (27.0-31.2); Mean Corpuscular Volume 90.6 fl (80-94); Mean Platelet Volume 7.6 fl (7.4-10.4); Monocytes # 0.5 K/mm3 (0.1-1.0); Monocytes % 4.4 % (1.7-9.3); Neutrophils # 9.1 K/mm3 (1.8-7.8); Neutrophils % 81.6 % (37.0-80.0); Platelet Count 321 K/mm3 (142-424); Red Blood Count 4.92 M/mm3 (4.60-6.20); White Blood Count 11.2 K/mm3 (4.8-10.8)
[2021-12-08 13:45] LABS: Chloride 103 mmol/L (98-107)
[2021-12-08 13:46] LABS: Potassium 4.5 mmoL/L (3.5-5.1); Sodium 135 mmol/L (136-145)
[2021-12-08 13:48] LABS: Alanine Aminotransferase 28 U/L (12-78); Aspartate Amino Transferase 37 U/L (17-59); Bilirubin,Total 0.3 mg/dl (0.2-1.3); Blood Urea Nitrogen 23 mg/dl (9-20); Estimated Glomerular Filt Rate 77 ml/min (>60); GFR (African American) 94 ML/MIN (>60)
[2021-12-08 13:49] LABS: Albumin Level 4.7 g/dl (3.5-5.0); Albumin/Globulin Ratio 1.8 (1.1-1.8); Alkaline Phosphatase 81 U/L (38-126); Anion Gap 7.5 mEq/L (5-15); Calcium 8.4 mg/dl (8.4-10.2); Carbon Dioxide 29 mmol/L (22.0-30.0); Globulin 2.6 g/dL (1.3-3.2); Glucose 103 mg/dl (74-100); Total Protein,Serum 7.3 g/dl (6.3-8.2)
== END ==
PROVIDERS: Visit Provider Physician Assistant
DX: K50.00 Crohn's disease of small intestine without complications (principal)
CPT/HCPCS: 36415; 80053; 85025

== ENCOUNTER → 2022-05-24 08:20 | Outpatient (CLI) | payer OTHER, SELFPAY ==
[2022-05-24 14:50] LABS: Alanine Aminotransferase 33 U/L (12-78); Albumin Level 4.2 g/dl (3.5-5.0); Albumin/Globulin Ratio 1.7 (1.1-1.8); Alkaline Phosphatase 83 U/L (38-126); Anion Gap 11.6 mEq/L (5-15); Aspartate Amino Transferase 37 U/L (17-59); Blood Urea Nitrogen 16 mg/dl (9-20); Calcium 9.5 mg/dl (8.4-10.2); Carbon Dioxide 27 mmol/L (22.0-30.0); Chloride 105 mmol/L (98-107); Estimated Glomerular Filt Rate 87 ml/min (>60); GFR (African American) 105 ML/MIN (>60); Globulin 2.5 g/dL (1.3-3.2); Glucose 108 mg/dl (74-100); Potassium 4.6 mmoL/L (3.5-5.1); Sodium 139 mmol/L (136-145); Total Protein,Serum 6.7 g/dl (6.3-8.2)
[2022-05-24 14:52] LABS: Basophils # 0.1 K/mm3 (0-0.2); Basophils % 1.2 % (0.1-2.0); Eosinophils # 0.2 K/mm3 (0.0-0.4); Eosinophils % 3.7 % (0.1-12.0); Hematocrit 46.1 % (42.0-52.0); Hemoglobin 14.7 g/dL (14.1-18.0); Lymphocytes # 1.1 K/mm3 (0.7-4.5); Lymphocytes % 18.6 % (10-50); Mean Corpuscular Hemoglobin 30.3 pg (27.0-31.2); Mean Corpuscular Volume 94.7 fl (80-94); Mean Platelet Volume 9.2 fl (7.4-10.4); Monocytes # 0.3 K/mm3 (0.1-1.0); Monocytes % 5.5 % (1.7-9.3); Neutrophils # 4.3 K/mm3 (1.8-7.8); Platelet Count 335 K/mm3 (142-424); Red Blood Count 4.87 M/mm3 (4.60-6.20); Red Cell Distribution Width 13.6 % (11.5-17.5); White Blood Count 6.1 K/mm3 (4.8-10.8)
[2022-05-24 14:56] LABS: C-Reactive Protein 1.2 mg/L (0-4)
[2022-05-24 15:05] LABS: Bilirubin,Total 0.1 mg/dl (0.2-1.3)
== END ==
PROVIDERS: Visit Provider Physician Assistant
DX: K50.00 Crohn's disease of small intestine without complications (principal)
CPT/HCPCS: 36415; 80053; 85025; 86140

== ENCOUNTER → 2022-06-12 08:19 | Outpatient (CLI) | payer OTHER, SELFPAY ==
[2022-06-12 15:20] LABS: Chol/HDL Ratio 5.4 (1-3.5); Cholesterol 161 mg/dl (140-200); HDL Cholesterol 30 mg/dl (40-60); Triglycerides 285 mg/dl (30-150); VLDL Cholesterol 57 mg/dL (0-40)
[2022-06-12 17:23] LABS: Hemoglobin A1C 5.6 % (4.0-6.0)
[2022-06-14 15:35] LABS: Direct LDL Cholesterol 71 mg/dL (100-129)
== END ==
PROVIDERS: PCP Family Medicine; Visit Provider Family Medicine
DX: K50.90 Crohn's disease, unspecified, without complications (principal); E78.5 Hyperlipidemia, unspecified
CPT/HCPCS: 36415; 80061; 83036

== ENCOUNTER → 2022-09-19 08:37 | Outpatient (CLI) | payer OTHER, SELFPAY ==
[2022-09-19 09:10] LABS: Basophils # 0.1 K/mm3 (0-0.2); Basophils % 1.3 % (0.1-2.0); Eosinophils # 0.2 K/mm3 (0.0-0.4); Eosinophils % 3.3 % (0.1-12.0); Hematocrit 47.4 % (42.0-52.0); Hemoglobin 15.1 g/dL (14.1-18.0); Lymphocytes # 1.2 K/mm3 (0.7-4.5); Lymphocytes % 19.1 % (10-50); Mean Corpuscular HGB Conc 31.9 g/dL (31.8-35.4); Mean Corpuscular Hemoglobin 30.2 pg (27.0-31.2); Mean Corpuscular Volume 94.9 fl (80-94); Mean Platelet Volume 8.4 fl (7.4-10.4); Monocytes # 0.3 K/mm3 (0.1-1.0); Monocytes % 4.9 % (1.7-9.3); Neutrophils # 4.5 K/mm3 (1.8-7.8); Neutrophils % 71.4 % (37.0-80.0); Platelet Count 335 K/mm3 (142-424); Red Cell Distribution Width 13.5 % (11.5-17.5); White Blood Count 6.3 K/mm3 (4.8-10.8)
[2022-09-19 09:43] LABS: Alanine Aminotransferase 43 U/L (12-78); Albumin Level 4.6 g/dl (3.5-5.0); Albumin/Globulin Ratio 1.8 (1.1-1.8); Alkaline Phosphatase 93 U/L (38-126); Anion Gap 10.7 mEq/L (5-15); Aspartate Amino Transferase 42 U/L (17-59); Bilirubin,Total 0.5 mg/dl (0.2-1.3); Blood Urea Nitrogen 20 mg/dl (9-20); Calcium 10.1 mg/dl (8.4-10.2); Carbon Dioxide 29 mmol/L (22.0-30.0); Chloride 104 mmol/L (98-107); Estimated Glomerular Filt Rate 69 ml/min (>60); GFR (African American) 83 ML/MIN (>60); Globulin 2.5 g/dL (1.3-3.2); Glucose 108 mg/dl (74-100); Potassium 4.7 mmoL/L (3.5-5.1); Sodium 139 mmol/L (136-145); Total Protein,Serum 7.1 g/dl (6.3-8.2)
== END ==
PROVIDERS: PCP Family Medicine; Visit Provider Physician Assistant
DX: Z51.81 Encounter for therapeutic drug level monitoring (principal); Z79.624 Long term (current) use of inhibitors of nucleotide synthesis; K50.00 Crohn's disease of small intestine without complications
CPT/HCPCS: 36415; 80053; 85025

== ENCOUNTER → 2023-01-14 08:27 | Outpatient (CLI) | payer OTHER, SELFPAY ==
[2023-01-17 23:05] LABS: Calprotectin, Fecal 43 ug/g (0-120)
== END ==
PROVIDERS: PCP Family Medicine; Visit Provider Physician Assistant
DX: K50.00 Crohn's disease of small intestine without complications (principal)
CPT/HCPCS: 83993

== ENCOUNTER 2023-03-19 08:46 | Outpatient (CLI) | payer OTHER, SELFPAY ==
[2023-03-19 08:59] VITALS: BMI 27.1
[2023-03-19 09:20] LABS: Basophils # 0.1 K/mm3 (0-0.2); Basophils % 0.9 % (0.1-2.0); Eosinophils # 0.2 K/mm3 (0.0-0.4); Hematocrit 42.9 % (42.0-52.0); Hemoglobin 14.1 g/dL (14.1-18.0); Lymphocytes # 1.2 K/mm3 (0.7-4.5); Lymphocytes % 20.8 % (10-50); Mean Corpuscular HGB Conc 32.9 g/dL (31.8-35.4); Mean Corpuscular Hemoglobin 29.8 pg (27.0-31.2); Mean Corpuscular Volume 90.3 fl (80-94); Mean Platelet Volume 7.9 fl (7.4-10.4); Monocytes # 0.3 K/mm3 (0.1-1.0); Monocytes % 5.4 % (1.7-9.3); Neutrophils % 68.9 % (37.0-80.0); Platelet Count 272 K/mm3 (142-424); Red Blood Count 4.75 M/mm3 (4.60-6.20); Red Cell Distribution Width 13.6 % (11.5-17.5); White Blood Count 5.8 K/mm3 (4.8-10.8)
[2023-03-19 09:28] LABS: Chloride 104 mmol/L (98-107)
[2023-03-19 09:29] LABS: Sodium 141 mmol/L (136-145)
[2023-03-19 09:31] LABS: Alanine Aminotransferase 57 U/L (12-78); Albumin Level 4.2 g/dl (3.5-5.0); Alkaline Phosphatase 78 U/L (38-126); Aspartate Amino Transferase 50 U/L (17-59); Bilirubin,Total 0.4 mg/dl (0.2-1.3); Blood Urea Nitrogen 18 mg/dl (9-20); Creatinine Clearance Estimated 112 mL/min (50-200); Estimated Glomerular Filt Rate 87 ml/min (>60); GFR (African American) 105 ML/MIN (>60)
[2023-03-19 09:32] LABS: Albumin/Globulin Ratio 1.6 (1.1-1.8); Calcium 8.2 mg/dl (8.4-10.2); Carbon Dioxide 27 mmol/L (22.0-30.0); Globulin 2.7 g/dL (1.3-3.2); Glucose 90 mg/dl (74-100); Total Protein,Serum 6.9 g/dl (6.3-8.2)
[2023-03-19 09:35] VITALS: BP 141/72; PULSE 70; RESP 18; TEMP 36.7; O2SAT 96
[2023-03-19 09:37] LABS: C-Reactive Protein 2.4 mg/L (0-4)
[2023-03-19 10:15] VITALS: BP 131/79; PULSE 71; RESP 18; O2SAT 97
== END 2023-03-19 10:15 | disposition home or self-care (01) ==
LOC: INF 08:47
PROVIDERS: PCP Family Medicine; Visit Provider Physician Assistant
DX: K50.00 Crohn's disease of small intestine without complications (principal)
CPT/HCPCS: 80053; 85025; 86140; 96413; J3380

== ENCOUNTER 2023-04-02 08:50 | Outpatient (CLI) | payer OTHER, SELFPAY ==
[2023-04-02 08:55] VITALS: BMI 27.1
[2023-04-02 09:27] VITALS: BP 138/76; PULSE 71; RESP 18; O2SAT 99
[2023-04-02 09:33] LABS: Alanine Aminotransferase 45 U/L (12-78); Albumin Level 4.2 g/dl (3.5-5.0); Albumin/Globulin Ratio 1.4 (1.1-1.8); Alkaline Phosphatase 93 U/L (38-126); Anion Gap 14.3 mEq/L (5-15); Aspartate Amino Transferase 47 U/L (17-59); Bilirubin,Total 0.2 mg/dl (0.2-1.3); Blood Urea Nitrogen 16 mg/dl (9-20); Calcium 8.6 mg/dl (8.4-10.2); Carbon Dioxide 28 mmol/L (22.0-30.0); Chloride 103 mmol/L (98-107); Creatinine Clearance Estimated 112 mL/min (50-200); Estimated Glomerular Filt Rate 87 ml/min (>60); GFR (African American) 105 ML/MIN (>60); Glucose 108 mg/dl (74-100); Potassium 4.3 mmoL/L (3.5-5.1); Sodium 141 mmol/L (136-145); Total Protein,Serum 7.2 g/dl (6.3-8.2)
[2023-04-02 09:36] LABS: Basophils # 0.1 K/mm3 (0-0.2); Basophils % 0.8 % (0.1-2.0); Eosinophils # 0.3 K/mm3 (0.0-0.4); Eosinophils % 3.5 % (0.1-12.0); Hematocrit 46.2 % (42.0-52.0); Lymphocytes # 1.4 K/mm3 (0.7-4.5); Mean Corpuscular HGB Conc 32.3 g/dL (31.8-35.4); Mean Corpuscular Hemoglobin 29.4 pg (27.0-31.2); Mean Platelet Volume 8.3 fl (7.4-10.4); Monocytes # 0.4 K/mm3 (0.1-1.0); Monocytes % 6.1 % (1.7-9.3); Neutrophils % 69.6 % (37.0-80.0); Platelet Count 308 K/mm3 (142-424); Red Blood Count 5.08 M/mm3 (4.60-6.20); Red Cell Distribution Width 13.7 % (11.5-17.5); White Blood Count 7.1 K/mm3 (4.8-10.8)
[2023-04-02 09:38] LABS: C-Reactive Protein 1.1 mg/L (0-4)
[2023-04-02 10:06] VITALS: BP 155/87; PULSE 72; RESP 18; O2SAT 98
== END 2023-04-02 10:06 | disposition home or self-care (01) ==
LOC: INF 08:50
PROVIDERS: PCP Family Medicine; Visit Provider Physician Assistant
DX: K50.00 Crohn's disease of small intestine without complications (principal)
CPT/HCPCS: 80053; 85025; 86140; 96413; J3380

== ENCOUNTER 2023-04-30 08:55 | Outpatient (CLI) | payer OTHER, SELFPAY ==
[2023-04-30 09:04] VITALS: BMI 26.2
[2023-04-30 09:34] LABS: Basophils % 0.4 % (0.1-2.0); Eosinophils # 0.2 K/mm3 (0.0-0.4); Eosinophils % 2.3 % (0.1-12.0); Hematocrit 44.8 % (42.0-52.0); Hemoglobin 14.8 g/dL (14.1-18.0); Lymphocytes # 1.4 K/mm3 (0.7-4.5); Lymphocytes % 19.4 % (10-50); Mean Corpuscular HGB Conc 32.9 g/dL (31.8-35.4); Mean Corpuscular Hemoglobin 29.2 pg (27.0-31.2); Mean Corpuscular Volume 88.8 fl (80-94); Mean Platelet Volume 8.4 fl (7.4-10.4); Monocytes # 0.5 K/mm3 (0.1-1.0); Monocytes % 6.4 % (1.7-9.3); Neutrophils % 71.4 % (37.0-80.0); Platelet Count 252 K/mm3 (142-424); Red Blood Count 5.05 M/mm3 (4.60-6.20); Red Cell Distribution Width 13.7 % (11.5-17.5)
[2023-04-30 09:45] LABS: Alanine Aminotransferase 51 U/L (12-78); Albumin Level 4.4 g/dl (3.5-5.0); Albumin/Globulin Ratio 1.5 (1.1-1.8); Alkaline Phosphatase 89 U/L (38-126); Anion Gap 10.2 mEq/L (5-15); Aspartate Amino Transferase 50 U/L (17-59); Bilirubin,Total 0.5 mg/dl (0.2-1.3); Blood Urea Nitrogen 19 mg/dl (9-20); Calcium 9.3 mg/dl (8.4-10.2); Carbon Dioxide 28 mmol/L (22.0-30.0); Chloride 104 mmol/L (98-107); Creatinine Clearance Estimated 108 mL/min (50-200); Estimated Glomerular Filt Rate 87 ml/min (>60); GFR (African American) 105 ML/MIN (>60); Globulin 2.9 g/dL (1.3-3.2); Glucose 117 mg/dl (74-100); Potassium 4.2 mmoL/L (3.5-5.1); Sodium 138 mmol/L (136-145); Total Protein,Serum 7.3 g/dl (6.3-8.2)
[2023-04-30 09:50] VITALS: BP 121/69; PULSE 72; RESP 18; TEMP 36.9; O2SAT 99
[2023-04-30 10:32] VITALS: BP 133/71; PULSE 74; RESP 18; O2SAT 99
[2023-05-02 19:45] LABS: QuantiFERON-TB Gold Plus Negative (Negative)
== END 2023-04-30 10:35 | disposition home or self-care (01) ==
LOC: INF 08:55
PROVIDERS: PCP Family Medicine; Visit Provider Physician Assistant
DX: K50.00 Crohn's disease of small intestine without complications (principal); Z51.81 Encounter for therapeutic drug level monitoring; Z79.624 Long term (current) use of inhibitors of nucleotide synthesis
CPT/HCPCS: 80053; 85025; 86140; 86480; 96413; J3380

== ENCOUNTER 2023-07-04 08:38 | Outpatient (CLI) | payer OTHER, SELFPAY ==
[2023-07-04 08:43] VITALS: BMI 27.1
[2023-07-04 09:05] LABS: Basophils # 0.1 K/mm3 (0-0.2); Eosinophils # 0.2 K/mm3 (0.0-0.4); Eosinophils % 3.6 % (0.1-12.0); Hematocrit 48.2 % (42.0-52.0); Hemoglobin 15.6 g/dL (14.1-18.0); Lymphocytes # 1.2 K/mm3 (0.7-4.5); Lymphocytes % 18.8 % (10-50); Mean Corpuscular HGB Conc 32.3 g/dL (31.8-35.4); Mean Corpuscular Hemoglobin 29.2 pg (27.0-31.2); Mean Corpuscular Volume 90.4 fl (80-94); Mean Platelet Volume 8.1 fl (7.4-10.4); Monocytes # 0.3 K/mm3 (0.1-1.0); Monocytes % 4.7 % (1.7-9.3); Neutrophils # 4.4 K/mm3 (1.8-7.8); Platelet Count 232 K/mm3 (142-424); Red Blood Count 5.33 M/mm3 (4.60-6.20); Red Cell Distribution Width 13.7 % (11.5-17.5); White Blood Count 6.1 K/mm3 (4.8-10.8)
[2023-07-04 09:15] VITALS: BP 134/74; PULSE 74; RESP 16
[2023-07-04 09:22] LABS: Alanine Aminotransferase 45 U/L (12-78); Albumin Level 4.4 g/dl (3.5-5.0); Albumin/Globulin Ratio 1.5 (1.1-1.8); Alkaline Phosphatase 88 U/L (38-126); Anion Gap 12.3 mEq/L (5-15); Aspartate Amino Transferase 41 U/L (17-59); Bilirubin,Total 0.6 mg/dl (0.2-1.3); Blood Urea Nitrogen 20 mg/dl (9-20); Calcium 9.4 mg/dl (8.4-10.2); Carbon Dioxide 30 mmol/L (22.0-30.0); Chloride 103 mmol/L (98-107); Creatinine Clearance Estimated 101 mL/min (50-200); Estimated Glomerular Filt Rate 77 ml/min (>60); GFR (African American) 93 ML/MIN (>60); Glucose 116 mg/dl (74-100); Potassium 4.3 mmoL/L (3.5-5.1); Sodium 141 mmol/L (136-145); Total Protein,Serum 7.4 g/dl (6.3-8.2)
[2023-07-04 09:27] LABS: C-Reactive Protein 1.5 mg/L (0-4)
[2023-07-04 09:50] VITALS: BP 136/75; PULSE 88; RESP 16
== END 2023-07-04 09:55 | disposition home or self-care (01) ==
LOC: INF 08:39
PROVIDERS: PCP Family Medicine; Visit Provider Physician Assistant
DX: K50.00 Crohn's disease of small intestine without complications (principal); Z79.899 Other long term (current) drug therapy
CPT/HCPCS: 80053; 85025; 86140; 96413; J3380

== ENCOUNTER → 2023-07-31 16:33 | Outpatient (CLI) | payer OTHER, SELFPAY ==
[2023-07-31 16:44] LABS: Prostate Specific Ag Screen 3.3 ng/ml (0.0-4.0)
== END ==
PROVIDERS: PCP Family Medicine; Visit Provider Family Medicine
DX: R35.1 Nocturia (principal); K50.90 Crohn's disease, unspecified, without complications; Z12.5 Encounter for screening for malignant neoplasm of prostate
CPT/HCPCS: G0103

== ENCOUNTER 2023-09-06 08:47 | Outpatient (CLI) | payer OTHER, SELFPAY ==
[2023-09-06 08:52] VITALS: BMI 27.8
[2023-09-06 09:11] LABS: Basophils # 0.1 K/mm3 (0-0.2); Basophils % 0.9 % (0.1-2.0); Eosinophils # 0.2 K/mm3 (0.0-0.4); Eosinophils % 3.8 % (0.1-12.0); Hematocrit 44.4 % (42.0-52.0); Hemoglobin 15.2 g/dL (14.1-18.0); Lymphocytes # 1.4 K/mm3 (0.7-4.5); Lymphocytes % 24.9 % (10-50); Mean Corpuscular HGB Conc 34.1 g/dL (31.8-35.4); Mean Corpuscular Volume 90.8 fl (80-94); Mean Platelet Volume 8.2 fl (7.4-10.4); Monocytes # 0.3 K/mm3 (0.1-1.0); Monocytes % 5.1 % (1.7-9.3); Neutrophils # 3.8 K/mm3 (1.8-7.8); Neutrophils % 65.3 % (37.0-80.0); Platelet Count 244 K/mm3 (142-424); Red Blood Count 4.89 M/mm3 (4.60-6.20); Red Cell Distribution Width 13.5 % (11.5-17.5); White Blood Count 5.7 K/mm3 (4.8-10.8)
[2023-09-06 09:14] LABS: Alanine Aminotransferase 45 U/L (12-78); Albumin Level 4.4 g/dl (3.5-5.0); Albumin/Globulin Ratio 1.6 (1.1-1.8); Alkaline Phosphatase 73 U/L (38-126); Anion Gap 9.3 mEq/L (5-15); Aspartate Amino Transferase 44 U/L (17-59); Bilirubin,Total 0.5 mg/dl (0.2-1.3); Blood Urea Nitrogen 16 mg/dl (9-20); Carbon Dioxide 28 mmol/L (22.0-30.0); Chloride 105 mmol/L (98-107); Creatinine Clearance Estimated 115 mL/min (50-200); Estimated Glomerular Filt Rate 87 ml/min (>60); GFR (African American) 105 ML/MIN (>60); Globulin 2.8 g/dL (1.3-3.2); Glucose 116 mg/dl (74-100); Potassium 4.3 mmoL/L (3.5-5.1); Sodium 138 mmol/L (136-145); Total Protein,Serum 7.2 g/dl (6.3-8.2)
[2023-09-06 09:29] LABS: Cholesterol 169 mg/dl (140-200); HDL Cholesterol 34 mg/dl (40-60); Triglycerides 228 mg/dl (30-150); VLDL Cholesterol 46 mg/dL (0-40)
[2023-09-06 09:35] VITALS: BP 144/72; PULSE 67; RESP 18; TEMP 36.6; O2SAT 99
[2023-09-06 09:39] LABS: Direct LDL Cholesterol 99.13 mg/dL (100-129)
[2023-09-06 10:20] VITALS: BP 146/77; PULSE 71
== END 2023-09-06 10:25 | disposition home or self-care (01) ==
LOC: INF 08:47
PROVIDERS: PCP Family Medicine; Visit Provider Physician Assistant
DX: K50.00 Crohn's disease of small intestine without complications (principal); E78.5 Hyperlipidemia, unspecified
CPT/HCPCS: 80053; 80061; 85025; 86140; 96413; J3380

== ENCOUNTER → 2023-09-06 15:11 | Outpatient (CLI) | payer OTHER, SELFPAY ==
[2023-09-06 16:11] LABS: Hemoglobin A1C 5.6 % (4.0-6.0)
== END ==
PROVIDERS: PCP Family Medicine; Visit Provider Family Medicine
DX: R73.9 Hyperglycemia, unspecified (principal)
CPT/HCPCS: 83036

== ENCOUNTER → 2023-09-23 13:43 | Outpatient (CLI) | payer OTHER, SELFPAY ==
[2023-09-25 10:14] LABS: PSA, Free 2.17 ng/mL; Prostate Specific Ag 5.3 ng/mL (0.0-4.0)
== END ==
LOC: LAB 13:43
PROVIDERS: PCP Family Medicine; Visit Provider Urology
DX: R97.20 Elevated prostate specific antigen [PSA] (principal)
CPT/HCPCS: 36415; 84153; 84154

== ENCOUNTER 2023-11-14 08:44 | Outpatient (CLI) | payer OTHER, SELFPAY ==
[2023-11-14 08:51] VITALS: BMI 27.1
[2023-11-14 09:11] LABS: Basophils % 0.6 % (0.1-2.0); Eosinophils # 0.2 K/mm3 (0.0-0.4); Eosinophils % 3.4 % (0.1-12.0); Hematocrit 43.3 % (42.0-52.0); Hemoglobin 15.1 g/dL (14.1-18.0); Lymphocytes # 1.6 K/mm3 (0.7-4.5); Lymphocytes % 24.7 % (10-50); Mean Corpuscular HGB Conc 34.9 g/dL (31.8-35.4); Mean Corpuscular Volume 88.6 fl (80-94); Mean Platelet Volume 8.4 fl (7.4-10.4); Monocytes # 0.3 K/mm3 (0.1-1.0); Neutrophils # 4.2 K/mm3 (1.8-7.8); Neutrophils % 66.4 % (37.0-80.0); Platelet Count 257 K/mm3 (142-424); Red Blood Count 4.88 M/mm3 (4.60-6.20); Red Cell Distribution Width 13.7 % (11.5-17.5); White Blood Count 6.4 K/mm3 (4.8-10.8)
[2023-11-14] MEDS: VEDOLIZUMAB 300 MG in 0.9 % SODIUM CHLORIDE 250 ML 500 MG IV (09:31)
[2023-11-14] MEDS: SODIUM CHLORIDE 0.9% 50ML BAG 50 ML IV (09:31)
[2023-11-14 09:40] VITALS: BP 135/76; PULSE 78; RESP 18; TEMP 36.6; O2SAT 98
[2023-11-14 09:40] LABS: C-Reactive Protein 1.4 mg/L (0-4)
[2023-11-14 09:45] LABS: Chloride 104 mmol/L (98-107); Potassium 4.5 mmoL/L (3.5-5.1); Sodium 138 mmol/L (136-145)
[2023-11-14 09:47] LABS: Blood Urea Nitrogen 19 mg/dl (9-20); Creatinine Clearance Estimated 112 mL/min (50-200); Estimated Glomerular Filt Rate 87 ml/min (>60); GFR (African American) 105 ML/MIN (>60)
[2023-11-14 09:48] LABS: Alanine Aminotransferase 50 U/L (12-78); Albumin Level 4.3 g/dl (3.5-5.0); Albumin/Globulin Ratio 1.7 (1.1-1.8); Alkaline Phosphatase 77 U/L (38-126); Anion Gap 12.5 mEq/L (5-15); Aspartate Amino Transferase 44 U/L (17-59); Bilirubin,Total 0.6 mg/dl (0.2-1.3); Carbon Dioxide 26 mmol/L (22.0-30.0); Globulin 2.5 g/dL (1.3-3.2); Glucose 122 mg/dl (74-100); Total Protein,Serum 6.8 g/dl (6.3-8.2)
[2023-11-14 10:10] VITALS: BP 136/78; PULSE 74; RESP 18; O2SAT 98
== END 2023-11-14 10:15 | disposition home or self-care (01) ==
LOC: INF 08:45
PROVIDERS: PCP Family Medicine; Visit Provider Physician Assistant
DX: K50.00 Crohn's disease of small intestine without complications (principal)
CPT/HCPCS: 80053; 85025; 86140; 96413; J3380

== ENCOUNTER 2024-01-09 08:46 | Outpatient (CLI) | payer OTHER, SELFPAY ==
[2024-01-09 08:54] VITALS: BMI 27.1
[2024-01-09 09:22] LABS: Basophils # 0.1 K/mm3 (0-0.2); Basophils % 1.3 % (0.1-2.0); Eosinophils # 0.2 K/mm3 (0.0-0.4); Eosinophils % 3.8 % (0.1-12.0); Hematocrit 46.7 % (42.0-52.0); Hemoglobin 15.7 g/dL (14.1-18.0); Lymphocytes # 1.4 K/mm3 (0.7-4.5); Lymphocytes % 23.5 % (10-50); Mean Corpuscular HGB Conc 33.6 g/dL (31.8-35.4); Mean Corpuscular Hemoglobin 31.3 pg (27.0-31.2); Mean Corpuscular Volume 93.4 fl (80-94); Mean Platelet Volume 8.3 fl (7.4-10.4); Monocytes # 0.3 K/mm3 (0.1-1.0); Monocytes % 5.7 % (1.7-9.3); Neutrophils # 3.9 K/mm3 (1.8-7.8); Neutrophils % 65.7 % (37.0-80.0); Platelet Count 269 K/mm3 (142-424); Red Cell Distribution Width 14.1 % (11.5-17.5)
[2024-01-09 09:25] VITALS: BP 141/84; PULSE 77; RESP 16; TEMP 36.4; O2SAT 99
[2024-01-09 09:29] LABS: Alanine Aminotransferase 69 U/L (12-78); Albumin Level 4.7 g/dl (3.5-5.0); Albumin/Globulin Ratio 1.6 (1.1-1.8); Alkaline Phosphatase 78 U/L (38-126); Anion Gap 12.3 mEq/L (5-15); Aspartate Amino Transferase 53 U/L (17-59); Bilirubin,Total 0.4 mg/dl (0.2-1.3); Blood Urea Nitrogen 16 mg/dl (9-20); Calcium 9.5 mg/dl (8.4-10.2); Carbon Dioxide 28 mmol/L (22.0-30.0); Chloride 105 mmol/L (98-107); Creatinine Clearance Estimated 100 mL/min (50-200); Estimated Glomerular Filt Rate 76 ml/min (>60); GFR (African American) 93 ML/MIN (>60); Globulin 2.9 g/dL (1.3-3.2); Glucose 112 mg/dl (74-100); Potassium 4.3 mmoL/L (3.5-5.1); Sodium 141 mmol/L (136-145); Total Protein,Serum 7.6 g/dl (6.3-8.2)
[2024-01-09 09:34] LABS: C-Reactive Protein 1.5 mg/L (0-4)
[2024-01-09 09:45] VITALS: BP 148/79; PULSE 69; RESP 16; O2SAT 99
[2024-01-09] MEDS: 0.9 % SODIUM CHLORIDE 50 ML 100 ML IV (09:45)
[2024-01-09] MEDS: VEDOLIZUMAB 300 MG in 0.9 % SODIUM CHLORIDE 250 ML 500 MG IV (09:45)
[2024-01-09 10:25] VITALS: BP 148/77; PULSE 71
[2024-01-16 21:08] LABS: Calprotectin, Fecal 17 ug/g (0-120)
== END 2024-01-09 10:30 | disposition home or self-care (01) ==
LOC: INF 08:48
PROVIDERS: PCP Family Medicine; Visit Provider Physician Assistant
DX: K50.00 Crohn's disease of small intestine without complications (principal)
CPT/HCPCS: 80053; 83993; 85025; 86140; 96413; J3380

== ENCOUNTER 2024-03-05 09:02 | Outpatient (CLI) | payer OTHER, SELFPAY ==
[2024-03-05 09:13] VITALS: BMI 27.1
[2024-03-05 09:55] LABS: Basophils # 0.1 K/mm3 (0-0.2); Basophils % 0.9 % (0.1-2.0); Eosinophils # 0.2 K/mm3 (0.0-0.4); Eosinophils % 4.1 % (0.1-12.0); Hematocrit 44.8 % (42.0-52.0); Hemoglobin 14.6 g/dL (14.1-18.0); Lymphocytes # 1.5 K/mm3 (0.7-4.5); Lymphocytes % 25.5 % (10-50); Mean Corpuscular HGB Conc 32.6 g/dL (31.8-35.4); Mean Corpuscular Hemoglobin 30.5 pg (27.0-31.2); Mean Corpuscular Volume 93.4 fl (80-94); Mean Platelet Volume 8.4 fl (7.4-10.4); Monocytes # 0.3 K/mm3 (0.1-1.0); Monocytes % 5.6 % (1.7-9.3); Neutrophils # 3.7 K/mm3 (1.8-7.8); Neutrophils % 63.8 % (37.0-80.0); Platelet Count 268 K/mm3 (142-424); Red Cell Distribution Width 13.7 % (11.5-17.5); White Blood Count 5.8 K/mm3 (4.8-10.8)
[2024-03-05 10:02] VITALS: BP 159/85; PULSE 68; RESP 16; TEMP 36.6; O2SAT 98
[2024-03-05] MEDS: SODIUM CHLORIDE 0.9% 50ML BAG 50 ML IV (10:02)
[2024-03-05] MEDS: VEDOLIZUMAB 300 MG in 0.9 % SODIUM CHLORIDE 250 ML 500 MG IV (10:02)
[2024-03-05 10:05] LABS: Alanine Aminotransferase 59 U/L (12-78); Albumin Level 4.3 g/dl (3.5-5.0); Albumin/Globulin Ratio 1.5 (1.1-1.8); Alkaline Phosphatase 74 U/L (38-126); Anion Gap 13.2 mEq/L (5-15); Aspartate Amino Transferase 52 U/L (17-59); Bilirubin,Total 0.4 mg/dl (0.2-1.3); Blood Urea Nitrogen 16 mg/dl (9-20); Carbon Dioxide 27 mmol/L (22.0-30.0); Chloride 104 mmol/L (98-107); Creatinine Clearance Estimated 111 mL/min (50-200); Estimated Glomerular Filt Rate 86 ml/min (>60); GFR (African American) 105 ML/MIN (>60); Globulin 2.9 g/dL (1.3-3.2); Glucose 122 mg/dl (74-100); Potassium 4.2 mmoL/L (3.5-5.1); Sodium 140 mmol/L (136-145); Total Protein,Serum 7.2 g/dl (6.3-8.2)
[2024-03-05 10:10] LABS: C-Reactive Protein 2.4 mg/L (0-4)
[2024-03-05 10:25] VITALS: BP 138/78; PULSE 66; RESP 18; O2SAT 98
[2024-03-05 10:55] VITALS: BP 140/73; PULSE 70; RESP 18; TEMP 36.6; O2SAT 98
== END 2024-03-05 11:00 | disposition home or self-care (01) ==
LOC: INF 09:02
PROVIDERS: PCP Family Medicine; Visit Provider Physician Assistant
DX: K50.00 Crohn's disease of small intestine without complications (principal); Z79.899 Other long term (current) drug therapy
CPT/HCPCS: 80053; 85025; 86140; 96413; J3380

== ENCOUNTER 2024-05-04 09:41 | Outpatient (CLI) | payer OTHER, SELFPAY ==
[2024-05-04 09:50] VITALS: BMI 27.1
[2024-05-04 10:14] LABS: Basophils # 0.1 K/mm3 (0-0.2); Basophils % 0.9 % (0.1-2.0); Eosinophils # 0.2 K/mm3 (0.0-0.4); Eosinophils % 2.7 % (0.1-12.0); Hematocrit 44.2 % (42.0-52.0); Hemoglobin 14.9 g/dL (14.1-18.0); Lymphocytes # 1.3 K/mm3 (0.7-4.5); Lymphocytes % 23.5 % (10-50); Mean Corpuscular HGB Conc 33.8 g/dL (31.8-35.4); Mean Corpuscular Hemoglobin 31.1 pg (27.0-31.2); Mean Corpuscular Volume 92.1 fl (80-94); Mean Platelet Volume 8.1 fl (7.4-10.4); Monocytes # 0.3 K/mm3 (0.1-1.0); Monocytes % 5.4 % (1.7-9.3); Neutrophils # 3.7 K/mm3 (1.8-7.8); Neutrophils % 67.5 % (37.0-80.0); Platelet Count 256 K/mm3 (142-424); Red Cell Distribution Width 14.1 % (11.5-17.5); White Blood Count 5.5 K/mm3 (4.8-10.8)
[2024-05-04 10:15] VITALS: BP 132/74; PULSE 67; RESP 16; TEMP 36.6; O2SAT 100
[2024-05-04] MEDS: VEDOLIZUMAB 300 MG in 0.9 % SODIUM CHLORIDE 250 ML 500 MG IV (10:15)
[2024-05-04] MEDS: SODIUM CHLORIDE 0.9% 50ML BAG 50 ML IV (10:15)
[2024-05-04 10:18] LABS: Chloride 106 mmol/L (98-107); Potassium 4.5 mmoL/L (3.5-5.1); Sodium 140 mmol/L (136-145)
[2024-05-04 10:21] LABS: Alanine Aminotransferase 57 U/L (12-78); Albumin Level 4.5 g/dl (3.5-5.0); Albumin/Globulin Ratio 1.5 (1.1-1.8); Alkaline Phosphatase 80 U/L (38-126); Anion Gap 10.5 mEq/L (5-15); Aspartate Amino Transferase 45 U/L (17-59); Bilirubin,Total 0.5 mg/dl (0.2-1.3); Blood Urea Nitrogen 18 mg/dl (9-20); Calcium 9.3 mg/dl (8.4-10.2); Carbon Dioxide 28 mmol/L (22.0-30.0); Creatinine Clearance Estimated 83 mL/min (50-200); Estimated Glomerular Filt Rate 62 ml/min (>60); GFR (African American) 75 ML/MIN (>60); Glucose 107 mg/dl (74-100); Total Protein,Serum 7.5 g/dl (6.3-8.2)
[2024-05-04 10:27] LABS: C-Reactive Protein 1.8 mg/L (0-4)
[2024-05-04 10:52] VITALS: BP 132/67; PULSE 72; RESP 16; TEMP 36.6; O2SAT 99
== END 2024-05-04 10:55 | disposition home or self-care (01) ==
LOC: INF 09:42
PROVIDERS: PCP Family Medicine; Visit Provider Physician Assistant
DX: Z51.12 Encounter for antineoplastic immunotherapy (principal); K50.00 Crohn's disease of small intestine without complications; Z79.620 Long term (current) use of immunosuppressive biologic
CPT/HCPCS: 80053; 85025; 86140; 96365; J3380

== ENCOUNTER 2024-07-03 08:44 | Outpatient (CLI) | payer OTHER, SELFPAY ==
[2024-07-03 08:52] VITALS: BMI 27.1
[2024-07-03] MEDS: 0.9 % SODIUM CHLORIDE 50 ML 100 ML IV (09:12)
[2024-07-03 09:13] LABS: Basophils # 0.1 K/mm3 (0-0.2); Basophils % 1.1 % (0.1-2.0); Eosinophils # 0.2 K/mm3 (0.0-0.4); Eosinophils % 2.9 % (0.1-12.0); Hematocrit 49.8 % (42.0-52.0); Hemoglobin 15.4 g/dL (14.1-18.0); Lymphocytes # 1.5 K/mm3 (0.7-4.5); Lymphocytes % 25.3 % (10-50); Mean Corpuscular HGB Conc 30.9 g/dL (31.8-35.4); Mean Corpuscular Hemoglobin 29.7 pg (27.0-31.2); Mean Corpuscular Volume 96.3 fl (80-94); Mean Platelet Volume 8.4 fl (7.4-10.4); Monocytes # 0.4 K/mm3 (0.1-1.0); Monocytes % 6.6 % (1.7-9.3); Neutrophils # 3.9 K/mm3 (1.8-7.8); Platelet Count 278 K/mm3 (142-424); Red Blood Count 5.17 M/mm3 (4.60-6.20); Red Cell Distribution Width 13.9 % (11.5-17.5)
[2024-07-03] MEDS: VEDOLIZUMAB 300 MG in 0.9 % SODIUM CHLORIDE 250 ML 500 MG IV (09:13)
[2024-07-03 09:17] LABS: Chloride 105 mmol/L (98-107); Potassium 4.5 mmoL/L (3.5-5.1); Sodium 139 mmol/L (136-145)
[2024-07-03 09:19] LABS: Alanine Aminotransferase 56 U/L (12-78); Anion Gap 9.5 mEq/L (5-15); Aspartate Amino Transferase 45 U/L (17-59); Blood Urea Nitrogen 20 mg/dl (9-20); Carbon Dioxide 29 mmol/L (22.0-30.0); Creatinine Clearance Estimated 100 mL/min (50-200); Estimated Glomerular Filt Rate 76 ml/min (>60); GFR (African American) 93 ML/MIN (>60)
[2024-07-03 09:20] LABS: Alkaline Phosphatase 81 U/L (38-126); Bilirubin,Total 0.7 mg/dl (0.2-1.3); Glucose 118 mg/dl (74-100); Total Protein,Serum 7.8 g/dl (6.3-8.2)
[2024-07-03 09:26] LABS: C-Reactive Protein 2.2 mg/L (0-4)
[2024-07-03 09:44] LABS: Albumin Level 4.6 g/dl (3.5-5.0); Albumin/Globulin Ratio 1.4 (1.1-1.8); Globulin 3.2 g/dL (1.3-3.2)
[2024-07-03 09:55] VITALS: BP 135/73; PULSE 74; RESP 18; O2SAT 98
[2024-07-03 09:59] VITALS: BP 153/83; PULSE 83; RESP 18; TEMP 36.5; O2SAT 98
== END 2024-07-03 10:00 | disposition home or self-care (01) ==
LOC: INF 08:45
PROVIDERS: PCP Family Medicine; Visit Provider Physician Assistant
DX: K50.90 Crohn's disease, unspecified, without complications (principal)
CPT/HCPCS: 80053; 85025; 86140; 96413; J3380

== ENCOUNTER 2024-08-31 08:50 | Outpatient (CLI) | payer OTHER, SELFPAY ==
[2024-08-31 08:55] VITALS: BMI 27.1
[2024-08-31 09:08] LABS: Basophils # 0.1 K/mm3 (0-0.2); Basophils % 1.2 % (0.1-2.0); Eosinophils # 0.3 K/mm3 (0.0-0.4); Eosinophils % 4.4 % (0.1-12.0); Hematocrit 44.6 % (42.0-52.0); Hemoglobin 15.1 g/dL (14.1-18.0); Lymphocytes # 1.5 K/mm3 (0.7-4.5); Mean Corpuscular HGB Conc 33.8 g/dL (31.8-35.4); Mean Corpuscular Hemoglobin 30.8 pg (27.0-31.2); Mean Corpuscular Volume 91.2 fl (80-94); Mean Platelet Volume 7.6 fl (7.4-10.4); Monocytes # 0.4 K/mm3 (0.1-1.0); Neutrophils % 68.3 % (37.0-80.0); Platelet Count 294 K/mm3 (142-424); Red Blood Count 4.89 M/mm3 (4.60-6.20); Red Cell Distribution Width 13.9 % (11.5-17.5); White Blood Count 7.3 K/mm3 (4.8-10.8)
[2024-08-31 09:20] LABS: Alanine Aminotransferase 47 U/L (12-78); Albumin Level 4.4 g/dl (3.5-5.0); Albumin/Globulin Ratio 1.6 (1.1-1.8); Alkaline Phosphatase 72 U/L (38-126); Anion Gap 10.2 mEq/L (5-15); Aspartate Amino Transferase 43 U/L (17-59); Bilirubin,Total 0.5 mg/dl (0.2-1.3); Blood Urea Nitrogen 12 mg/dl (9-20); Carbon Dioxide 30 mmol/L (22.0-30.0); Chloride 106 mmol/L (98-107); Creatinine Clearance Estimated 111 mL/min (50-200); Estimated Glomerular Filt Rate 86 ml/min (>60); GFR (African American) 105 ML/MIN (>60); Globulin 2.7 g/dL (1.3-3.2); Glucose 98 mg/dl (74-100); Potassium 4.2 mmoL/L (3.5-5.1); Sodium 142 mmol/L (136-145); Total Protein,Serum 7.1 g/dl (6.3-8.2)
[2024-08-31] MEDS: SODIUM CHLORIDE 0.9% 10ML FLUSH SYRINGE 10 ML IV (09:20)
[2024-08-31 09:21] VITALS: BP 145/80; PULSE 75; RESP 16; TEMP 36.6; O2SAT 98
[2024-08-31] MEDS: SODIUM CHLORIDE 0.9% 50ML BAG 50 ML IV (09:21)
[2024-08-31] MEDS: VEDOLIZUMAB 300 MG in 0.9 % SODIUM CHLORIDE 250 ML 500 MG IV (09:21)
[2024-08-31 09:25] LABS: C-Reactive Protein 3.3 mg/L (0-4)
[2024-08-31 09:49] LABS: Chol/HDL Ratio 3.8 (1-3.5); Cholesterol 144 mg/dl (140-200); HDL Cholesterol 38 mg/dl (40-60); Triglycerides 255 mg/dl (30-150); VLDL Cholesterol 51 mg/dL (0-40)
[2024-08-31 09:59] LABS: Direct LDL Cholesterol 82.54 mg/dL (100-129)
[2024-08-31 10:08] VITALS: BP 149/84; PULSE 77; RESP 16; TEMP 36.6; O2SAT 98
[2024-08-31 10:18] LABS: Prostate Specific Ag Screen 3.2 ng/ml (0.0-4.0)
== END 2024-08-31 23:59 | disposition home or self-care (01) ==
LOC: INF 08:51
PROVIDERS: PCP Family Medicine; Visit Provider Physician Assistant
DX: R97.20 Elevated prostate specific antigen [PSA] (principal); I10 Essential (primary) hypertension; E78.5 Hyperlipidemia, unspecified
CPT/HCPCS: 80053; 80061; 85025; 86140; 96413; G0103; J3380

== ENCOUNTER 2024-10-30 09:08 | Outpatient (CLI) | payer OTHER, SELFPAY ==
[2024-10-30 09:13] VITALS: BMI 27.1
[2024-10-30] MEDS: VEDOLIZUMAB 300 MG in 0.9 % SODIUM CHLORIDE 250 ML 500 MG IV (09:28)
[2024-10-30 09:33] VITALS: BP 119/60; PULSE 85; RESP 18; O2SAT 97
[2024-10-30] MEDS: SODIUM CHLORIDE 0.9% 50ML BAG 50 ML IV (09:33)
[2024-10-30 09:40] LABS: Basophils % 0.7 % (0.1-2.0); Eosinophils # 0.2 K/mm3 (0.0-0.4); Eosinophils % 3.5 % (0.1-12.0); Hematocrit 42.7 % (42.0-52.0); Hemoglobin 14.4 g/dL (14.1-18.0); Lymphocytes # 1.3 K/mm3 (0.7-4.5); Mean Corpuscular HGB Conc 33.7 g/dL (31.8-35.4); Mean Corpuscular Hemoglobin 29.5 pg (27.0-31.2); Mean Corpuscular Volume 87.5 fl (80-94); Monocytes # 0.4 K/mm3 (0.1-1.0); Monocytes % 6.5 % (1.7-9.3); Platelet Count 286 K/mm3 (142-424); Red Blood Count 4.88 M/mm3 (4.60-6.20)
[2024-10-30 09:44] LABS: Albumin Level 4.2 g/dl (3.5-5.0); Chloride 106 mmol/L (98-107); Potassium 4.3 mmoL/L (3.5-5.1); Sodium 140 mmol/L (136-145)
[2024-10-30 09:46] LABS: Blood Urea Nitrogen 13 mg/dl (9-20); Creatinine Clearance Estimated 124 mL/min (50-200); Estimated Glomerular Filt Rate 99 ml/min (>60); GFR (African American) 120 ML/MIN (>60)
[2024-10-30 09:47] LABS: Alanine Aminotransferase 60 U/L (12-78); Albumin/Globulin Ratio 1.7 (1.1-1.8); Alkaline Phosphatase 81 U/L (38-126); Anion Gap 12.3 mEq/L (5-15); Aspartate Amino Transferase 61 U/L (17-59); Bilirubin,Total 0.7 mg/dl (0.2-1.3); Calcium 9.2 mg/dl (8.4-10.2); Carbon Dioxide 26 mmol/L (22.0-30.0); Globulin 2.5 g/dL (1.3-3.2); Glucose 140 mg/dl (74-100); Total Protein,Serum 6.7 g/dl (6.3-8.2)
[2024-10-30 09:53] LABS: C-Reactive Protein 2.2 mg/L (0-4)
[2024-10-30 10:12] VITALS: BP 132/67; PULSE 79; RESP 18; O2SAT 98
== END 2024-10-30 10:12 | disposition home or self-care (01) ==
PROVIDERS: PCP Family Medicine; Visit Provider Physician Assistant
DX: K50.00 Crohn's disease of small intestine without complications (principal)
CPT/HCPCS: 80053; 85025; 86140; 96413; J3380

== ENCOUNTER 2024-12-25 08:56 | Outpatient (CLI) | payer OTHER, SELFPAY ==
[2024-12-25 09:18] VITALS: BMI 27.1
[2024-12-25] MEDS: VEDOLIZUMAB 300 MG in 0.9 % SODIUM CHLORIDE 250 ML 500 MG IV (09:18)
[2024-12-25 09:25] VITALS: BP 145/73; PULSE 79; RESP 18; TEMP 36.3; O2SAT 99
[2024-12-25 09:25] LABS: Basophils # 0.1 K/mm3 (0-0.2); Basophils % 0.8 % (0.1-2.0); Eosinophils # 0.2 K/mm3 (0.0-0.4); Eosinophils % 2.7 % (0.1-12.0); Hematocrit 43.1 % (42.0-52.0); Hemoglobin 14.7 g/dL (14.1-18.0); Lymphocytes # 1.4 K/mm3 (0.7-4.5); Lymphocytes % 22.3 % (10-50); Mean Corpuscular HGB Conc 34.1 g/dL (31.8-35.4); Mean Corpuscular Hemoglobin 29.5 pg (27.0-31.2); Mean Corpuscular Volume 86.5 fl (80-94); Monocytes # 0.5 K/mm3 (0.1-1.0); Monocytes % 7.2 % (1.7-9.3); Neutrophils # 4.2 K/mm3 (1.8-7.8); Neutrophils % 66.5 % (37.0-80.0); Platelet Count 278 K/mm3 (142-424); Red Blood Count 4.98 M/mm3 (4.60-6.20); Red Cell Distribution Width 12.9 % (11.5-17.5); White Blood Count 6.4 K/mm3 (4.8-10.8)
[2024-12-25] MEDS: SODIUM CHLORIDE 0.9% 50ML BAG 50 ML IV (09:27)
[2024-12-25 09:52] LABS: Albumin Level 4.5 g/dl (3.5-5.0); Chloride 104 mmol/L (98-107); Potassium 4.4 mmoL/L (3.5-5.1); Sodium 138 mmol/L (136-145)
[2024-12-25 09:55] LABS: Alanine Aminotransferase 54 U/L (12-78); Albumin/Globulin Ratio 1.8 (1.1-1.8); Anion Gap 9.4 mEq/L (5-15); Aspartate Amino Transferase 51 U/L (17-59); Bilirubin,Total 0.7 mg/dl (0.2-1.3); Blood Urea Nitrogen 16 mg/dl (9-20); Carbon Dioxide 29 mmol/L (22.0-30.0); Creatinine Clearance Estimated 111 mL/min (50-200); Estimated Glomerular Filt Rate 86 ml/min (>60); GFR (African American) 105 ML/MIN (>60); Globulin 2.5 g/dL (1.3-3.2)
[2024-12-25 09:56] LABS: Alkaline Phosphatase 84 U/L (38-126); Calcium 9.2 mg/dl (8.4-10.2); Glucose 105 mg/dl (74-100)
[2024-12-25 10:01] LABS: C-Reactive Protein 2.8 mg/L (0-4)
[2024-12-25 10:05] VITALS: BP 149/80; PULSE 71; RESP 18; O2SAT 97
== END 2024-12-25 10:05 | disposition home or self-care (01) ==
LOC: INF 08:57
PROVIDERS: PCP Family Medicine; Visit Provider Physician Assistant
DX: K50.90 Crohn's disease, unspecified, without complications (principal)
CPT/HCPCS: 80053; 85025; 86140; 96413; J3380

== ENCOUNTER 2025-02-25 09:04 | Outpatient (CLI) | payer OTHER, SELFPAY ==
[2025-02-25 09:06] VITALS: BMI 29.0
[2025-02-25 09:32] LABS: Basophils # 0.1 K/mm3 (0-0.2); Eosinophils # 0.2 Kmm3 (0.0-0.4); Eosinophils % 3.3 % (0.1-12.0); Hematocrit 44.2 % (42.0-52.0); Hemoglobin 15.4 g/dL (14.1-18.0); Immature Granulocytes # 0.02 10^3uL; Immature Granulocytes % 0.3 %; Lymphocytes # 1.5 K/mm3 (0.7-4.5); Lymphocytes % 23.9 % (10-50); Mean Corpuscular HGB Conc 34.8 g/dL (31.8-35.4); Mean Corpuscular Hemoglobin 30.4 pg (27.0-31.2); Mean Corpuscular Volume 87.4 fl (80-94); Mean Platelet Volume 10.5 fl (7.4-10.4); Monocytes # 0.4 K/mm3 (0.1-1.0); Monocytes % 6.6 % (1.7-9.3); Neutrophils # 3.9 K/mm3 (1.8-7.8); Neutrophils % 64.9 % (37.0-80.0); Nucleated Red Blood Cells # 0 10^3/uL; Nucleated Red Blood Cells % 0 %; Platelet Count 268 K/mm3 (142-424); Red Blood Count 5.06 M/mm3 (4.60-6.20); White Blood Count 6.1 K/mm3 (4.8-10.8)
[2025-02-25] MEDS: SODIUM CHLORIDE 0.9% 50ML BAG 50 ML IV (09:47)
[2025-02-25] MEDS: SODIUM CHLORIDE 0.9% 10ML FLUSH SYRINGE 10 ML IV (09:47)
[2025-02-25 10:10] VITALS: BP 147/84; PULSE 78; RESP 20; TEMP 36.6; O2SAT 98
[2025-02-25] MEDS: VEDOLIZUMAB 300 MG in 0.9 % SODIUM CHLORIDE 250 ML 500 MG IV (10:10)
[2025-02-25 10:18] LABS: Alanine Aminotransferase 54 U/L (12-78); Albumin Level 4.4 g/dl (3.5-5.0); Albumin/Globulin Ratio 1.7 (1.1-1.8); Alkaline Phosphatase 94 U/L (38-126); Anion Gap 8.2 mEq/L (5-15); Aspartate Amino Transferase 48 U/L (17-59); Bilirubin,Total 0.6 mg/dl (0.2-1.3); Blood Urea Nitrogen 15 mg/dl (9-20); Calcium 9.3 mg/dl (8.4-10.2); Carbon Dioxide 25 mmol/L (22.0-30.0); Chloride 109 mmol/L (98-107); Creatinine Clearance Estimated 116 mL/min (50-200); Estimated Glomerular Filt Rate 86 ml/min (>60); GFR (African American) 104 ML/MIN (>60); Globulin 2.6 g/dL (1.3-3.2); Glucose 103 mg/dl (74-100); Potassium 4.2 mmoL/L (3.5-5.1); Sodium 138 mmol/L (136-145)
--- NOTE | 2025-02-25 10:19 | PC.NURSE ---
02/25/25 1010 Lab reported that 2 blood tubes were hemolyzed and needed a redraw. Attempted to obtain blood back from existing iv and unable to obtain a sufficient amount to retest. Venipuncture performed using a butterlfy access needle to pt's rt hand x 2 and additional blood obtained to retest. Needle removed and site secured with 2x2 gauze and coban. Lab specimens sent to lab for analysis.
[2025-02-25 10:24] LABS: C-Reactive Protein 1.6 mg/L (0-4)
[2025-02-25 10:48] VITALS: BP 149/85; PULSE 72; RESP 20; O2SAT 98
== END 2025-02-25 10:48 | disposition home or self-care (01) ==
LOC: INF 09:05
PROVIDERS: PCP Family Medicine; Visit Provider Physician Assistant
DX: K50.90 Crohn's disease, unspecified, without complications (principal)
CPT/HCPCS: 80053; 85025; 86140; 86480; 96413; J3380

== ENCOUNTER 2025-05-04 08:54 | Outpatient (CLI) | payer OTHER, SELFPAY ==
--- OUTSIDE RECORDS SUMMARY | 2025-01-23 17:30 | XMS_ITS ---
Author Organization [facility] Address [address] [facility] [address] [place] [address] Care Team Providers Care Tester Waste Disposal Leakage Name Role Phone Randy Gates Primary Care Provider Migration, Provider Unavailable Unavailable Allergies Allergen (clinical drug ingredient) Drug/Non Drug Allergy documented on EMR Reaction Allergy Type Onset Date Status Penicillin Unknown Drug Allergy Active diclofenac Diclofenac myalgias Drug Allergy Activ e REASON FOR VISIT [facility] Encounter Medications Medication SIG (Take, Route, Frequency, Duration) Notes Start Date End Date Status Multivitamin MULTIPLE VITAMINS 1 CAP(S) ORALLY ONCE A DAY *Please review and pick correct strength-formulatio n from [employer] options. If intended option is not shown, discontinue and re-order from Quick Search* Active Rosuvastatin Calcium 5 MG 1 CAP(S) ORALLY ONCE A DAY; Duration: 90 DAYS *Please review and pick correct strength-formulatio n from [employer] options. If intended option is not shown, [...] review and pick correct strength-formulatio n from [employer] options. If intended option is not shown, discontinue and re-order from Quick Search* Active Encounters Encounter Location Date Provider Diagnosis [facility] [address] [place], [place] [address] 01/23/2025 Provider Migration Herpes zoster withou t [...] *Please review and pick correct strength-formulation from [employer] options. If intended option is not shown, [...] * Sadi URIOSTEGUI EDOB:[birth year] (59 yo M)Acc No.[id number]:01/23/2025 Patient: Sadi MENSAH Provider: Yaneth webb Migration :1965 A ge:59 Y S ex:Male Date:01/23/2025 Address:[address] [place] [phone] Pcp:Randy Gates Subjective: * Chief Complaints: * 1 . Multum To Medispan Conversion Encounter. * Medical History: * Medications: T aking Aspirin 81 MG TABLET 1 TAB(S) ORALLY ONCE A DAY , Notes to Pharmacist: *Please review and pick correct strength-formulation from [employer] options. If intended option is not shown, discontinue and re-order from Quick Search*, Taking azaTHIOprine 50 MG Tablet 1.5 tab(s) orally once a day , Taking Multivitamin MULTIPLE VITAMINS CAPSULE 1 CAP(S) ORALLY ONCE A DAY , Notes to Pharmacist: *Please review and pick correct strength-formulation from [employer] options. If intended option is not shown, [...] *Please review and pick correct strength-formulation from [employer] options. If intended option is not shown, discontinue and re-order from Quick Search*.? * * Electronic signature of Prov ider Migration on 05/04/2025 at 08:58 AM EDT Sign off status: Pending * Provider: Yaneth webb Migration Date: 0 01/23/2025 Generated for Nahomy roman/Becka/Hanane on: 0 05/04/2025 08:58 AM EDT
--- OUTSIDE RECORDS SUMMARY | 2025-05-04 08:59 | XMS_ITS | Encounter Summary ---
Author Organization [facility] ([place], [place], [place], [place]) Address [address] [place] [address] Care Team Providers Care Rn Traveling Name Role Phone Unavailable Primary Care Provider Unavailabl e Reason for Referral * MRI (Routine) - Closed Specialty Diagnoses / Procedures Referred By Contac t Referred To Contact Radiology Diagnoses Elevated prostate specific antigen (PSA) Procedures MR prostate without & with IV contrast Fabrice Barber MD [address] [place] [address] Phone: tel: fax: Referral ID Status Reason Start Date Expiration Date Visits Re quested Visits Authorized [id number] Closed 11/26/2023 05/24/2024 1 1 Encounter Details Date Type Department Care Team (Late st Contact Info) Description 11/26/2023 Outside Orders [facility] Central Scheduling [address] [place] [address] Fabrice Barber MD [address] [place] [address] Elevated prostate specific antigen (PSA) (Primary Dx) Social History Tobacco Use Types Packs/Day Years Used Date Smoking Tobacco: Never Assessed Food Insecurity Answer Date Recorded Food run out past 12 months Not on file 03/2024 Food did not last past 12 months Not on file 11/26/2023 Employment Answer Date Recorded Help finding and keeping a job Not on file 0 11/26/2023 Family and Community Support Answer Fred e Recorded Help with Day to Day Activities Not on file 11/26/2023 Feeling Lonely or Isolated Not on file 11/26 Educational Attainment Answer Date Carlos A rded Speak language other than Iranian at home Not on file 11/26/2023 Want help with school or training Not on file 11/26/2023 Substance Use Answer Date Recorded Used prescription meds for non-medical reasons N ot on file 11/26/2023 Used illegal drugs past 12 months Not on file 11/26/2023 Sex and Gender Information Value Date Recorded Sex Assigned at Not on file 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 Indeterminate areas in the peripheral zone and left transition zone as described. PI-RADS 3 - Intermediate (the presence of clinically significant cancer is equivocal). Images reviewed, interpreted, and dictated by Jacek Michael MD Narrative 12/05/2023 10:25 AM EST MR PELVIS WITHOUT AND WITH CONTRAST HISTORY: Elevated PSA COMPARISON: None FINDINGS: Multiplanar MR imaging of the pelvis was performed without and with contrast using the prostate MRI protocol. The images were reviewed on the [employer] CAD workstation. The prostate measures 4.9 x 4.7 x 4.0 cm. This corresponds to a volume of 45 cc. PERIPHERAL ZONE: A 7 x 5 mm focus of slightly decreased T2 signal is seen involving the right peripheral zone at the mid gland. This shows moderate restricted diffusion and is consistent with a PI-RADS 3 lesion. There is also a 21 x 5 mm focus of decreased T2 signal in the bilateral posterior midline peripheral zone at the base of the gland with moderate restricted diffusion. This is also consistent with a PI-RADS 3 lesion. These were both localized on the [employer] CAD software. Widespread areas of abnormal contrast kinetics are seen in the peripheral zone as a nonspecific finding. TRANSITION ZONE: The transition zone is somewhat enlarged and nodular consistent with BPH. There is a 7 x 5 mm focus of decreased T2 signal in the left transition zone at the mid gland with significant restricted diffusion. This is consistent with a PI-RADS 3 lesion and was localized on the [employer] CAD software. Widespread abnormal contrast kinetics are seen throughout the transition zone. Review of the remainder of the pelvis reveals no evidence of mass or adenopathy. No abnormal fluid collection is seen. Multiple diverticula are noted in the sigmoid colon. There is a small left internal hernia containing fat only. Procedure Note Jacek Michael MD - 12/05/2023 MR PELVIS WITHOUT AND WITH CONTRAST HISTORY: Elevated PSA COMPARISON: None FINDINGS: Multiplanar MR imaging of the pelvis was performed without and with contrast using the prostate MRI protocol. The images were reviewed on the [employer] CAD workstation. The prostate measures 4.9 x 4.7 x 4.0 cm. This corresponds to a volume of 45 cc. PERIPHERAL ZONE: A 7 x 5 mm focus of slightly decreased T2 signal is seen involving the right peripheral zone at the mid gland. This shows moderate restricted diffusion and is consistent with a PI-RADS 3 lesion. There is also a 21 x 5 mm focus of decreased T2 signal in the bilateral posterior midline peripheral zone at the base of the gland with moderate restricted diffusion. This is also consistent with a PI-RADS 3 lesion. These were both localized on the [employer] CAD software. Widespread areas of abnormal contrast kinetics are seen in the peripheral zone as a nonspecific finding. TRANSITION ZONE: The transition zone is somewhat enlarged and nodular consistent with BPH. There is a 7 x 5 mm focus of decreased T2 signal in the left transition zone at the mid gland with significant restricted diffusion. This is consistent with a PI-RADS 3 lesion and was localized on the [employer] CAD software. Widespread abnormal contrast kinetics are seen throughout the transition zone. Review of the remainder of the pelvis reveals no evidence of mass or adenopathy. No abnormal fluid collection is seen. Multiple diverticula are noted in the sigmoid colon. There is a small left internal hernia containing fat only. IMPRESSION: Enlarged prostate with BPH. Indeterminate areas in the peripheral zone and left transition zone as described. PI-RADS 3 - Intermediate (the presence of clinically significant cancer is equivocal). Images reviewed, interpreted, and dictated by Jacek Michael MD Fabrice Barber MD IMG MRI ORDERABLES Final Result documented in this encounter Visit Diagnoses Diagnosis Elevated prostate specific antigen (PSA)- Primary Elevated prostate specific antigen (PSA) documented in this encounter
--- OUTSIDE RECORDS SUMMARY | 2025-05-04 08:59 | XMS_ITS ---
Author Organization [facility] Address [address] [place] [address] Care Team Providers Care Career Guidance Counselor Name Role Phone Tomer Back MD Primary Care Provider Corine vailable Active Problems Problem Noted Date Diagnosed Date Umbilical hernia without obstruction and without gangrene 12/15/2024 Pseudogout 12/15/2024 Hypertension 12/15/2024 Asymptomatic microscopic hematuria 12/15/2024 Hyperlipidemia, unspecified 08/31/2024 Elevated prostate specific antigen (PSA) 024 Basal cell carcinoma (BCC) of left lower eyelid 05/29/2022 Overview (05/29/2022): Added automatically from request for surgery [id number] Crohn's disease of small intestine without compl ication 02/06/2022 Decreased white blood cell count 05/06/2018 Basal cell carcinoma 05/24/2016 Crohn's disease 10/05/2014 Current Treatment and Therapy Plans No current plan information found. Other Current Plans Vedolizumab (Entyvio)* Plan Start Date:02/12/2025 Plan Provider:Janet Saldivar PA Linked Problems Crohn's disease of small int estine without complication (CMS/HCC) Treatment Medications No medications scheduled. Past Treatment and Therapy Plans
--- OUTSIDE RECORDS SUMMARY | 2025-05-04 08:59 | XMS_ITS | Clinical Summary ---
Author Organization [facility] Address [address] [place] [address] Care Team Providers Care Powderman Name Role Phone Tomer Back MD Primary Care Provider Corine vailable Allergies Active Allergy Reactions Criticality Noted Date Comments Allopurinol Other - please docum ent in the comment field Low 12/26/2021 Made pt feel bad Penicillins Unknown - Patient st ates they do not know rxn details Low 10/05/2014 Medications amLODIPine (Norvasc) 5 MG tablet Take 1 tablet (5 mg) by mouth daily. 0 Active Multiple Vitamin (MULTI-VITAMIN DAILY PO) Take 1 tablet by mouth 1 (one) time each day. 5 Active rosuvastatin (Crestor) 5 MG tablet Take 1 tablet (5 mg) by mouth daily. 1 Active aspirin 81 MG EC tablet Take 1 tablet (81 mg) by mouth daily. Active triamcinolone (Kenalog) 0.5 % ointment 1 Active bisacodyl (Dulcolax) 5 MG EC tablet Take all 4 tablets at 4 PM on day before colonoscopy . Do not crush, chew, or split. 4 tablet 5 Active Additional Information Patient not taking.Reported on 01/25/2025 SGX-BYm-AsHd-NaSu lf-Na Asc-C 100 g reconstituted solution At 5PM on day before colonoscopy mix and drink 1st dose. Mix and drink 2nd dose 6hrs before leaving house on day of colonoscopy 1 each 02/28/202 5 Active Additional Information Patient not taking.Reported on 01/25/2025 Active Problems Problem Noted Date Diagnosed Date Umbilical hernia without obstruction and without gangrene 12/15/2024 Pseudogout 12/15/2024 Hypertension 12/15/2024 Asymptomatic microscopic hematuria 12/15/2024 Hyperlipidemia, unspecified 08/31/2024 Elevated prostate specific antigen (PSA) 024 Basal cell carcinoma (BCC) of left lower eyelid 05/29/2022 Overview (05/29/2022): Added automatically from request for surgery [id number] Crohn's disease of small intestine without compl ication 02/06/2022 Decreased white blood cell count 05/06/2018 Basal cell carcinoma 05/24/2016 Crohn's disease 10/05/2014 Encounters Date Type Department Care Team Description 03/02/2025 Results Follow-Up [facility] Medicine Specialties [address], [address] [place] [phone] Janet Saldivar PA 03/02/2025 Orders Only [facility] Medicine Specialties [address], [address] [place] [phone] Sheba Jimenez RN Crohn's disease of small intestine without complication (CMS/HCC) 02/12/2025 Results Follow-Up [facility] Medicine Specialties [address], [address] [place] [phone] Clare Cardona MD 02/12/2025 Orders Only [facility] Medicine Specialties [address], [address] [place] [phone] Janet Saldivar, PA Crohn's disease of small intestine without complication (CMS/HCC) (Primary Dx) 02/12/2025 Telephone [facility] [address] [place] [address] Ronny Pyle, RN New Entyvio Orders from Last 3 Months Immunizations Immunization Administration Dates Next Due Influenza, injectable, quadrivalent 09/06/2015 Moderna COVID-19 Vaccine (Re d Cap) 12+ years 10/19/2021,01/12/2021,12/15/2020 Tdap 02/13/2023 Family History Medical History Relation Name Comments Cardiac disorder Father Conversions - Other Father Family h istory unknown Diabetes Father Heart disease Father Cardiac disorder Mother Conversions - Other Mother Family h istory unknown Diabetes Mother Heart disease Mother Anesthesia problems Neg Hx Malig Hypertension Neg Hx Malig Hyperthermia Neg Hx Relation Name Status Comments Father Mother Social History Tobacco Use Types Packs/Day Years Used Date Smoking Tobacco: Never Passive Smoke Exposure: Never Smokeless Tobacco: Never Tobacco Cessation:Counseling Given: Not Answered Alcohol Use Standard Drinks/Week Comments No 0 (1 standard drink = 0.6 oz pur e alcohol) PHQ-2 Answer Date Recorded Patient Health Questionnaire-2 Score 0 01/25/2025 PHQ-9 Answer Date Recorded Patient Health Questionnaire-9 Score 5 12/15/2024 PHQ-2A Answer Date Recorded Patient Health Questionnaire-2 Score 0 05/28/2023 Sex and Gender Information Value Date Recorded Sex Assigned at Not on file Legal Sex Male 6:47 PM EDT Gender Identity Not on file Sexual Orientation Not on file Last Filed Vital Signs Vital Sign Reading Time Taken Comments Blood Pressure 134/82 01/25/2025 1:34 PM EDT Pulse 85 01/25/2025 1:34 PM EDT Temperature 36.6 C (97.9 F) 12/15/2024 10:44 AM EST Respiratory Rate 14 01/25/2025 1:34 PM EDT Oxygen Saturation 97% 01/25/2025 1:34 PM EDT Inhaled Oxygen Concentration - - Weight 94.5 kg (208 lb 5.4 oz) 01/25/2025 1:34 P M EDT Height 180.3 cm (5' 11 ) 01/25/2025 1:34 PM EDT Body Mass Index 29.06 01/25/2025 1:34 PM EDT Plan of Treatment Upcoming Encounters Date Type Department Care Team (Late st Contact Info) Description 06/17/2025 10:20 AM EDT Office Visit [facility] Medicine Specialties [address], [address] [place] [address] Janet Saldivar PA [address] [place] [phone] 07/27/2025 2:00 PM EDT Clinical Support [facility] [address], [address] [place] [address] 07/27/2025 3:00 PM EDT Office [facility] [address], [address] [place] [address] Yolande House PA [address] [place] [address] Health Maintenance Due Date Last Done Comments [facility]-HIV Screening 1964 [facility]-Hepatitis C Screening 1964 [facility]-Infant/Child/Adol SDOH Screenings 1964 [facility]- SDOH Screenings 1982 [facility]-Adult SDOH Screenings 1982 [facility]-Pneumococcal Vaccine: 50+ Years (1 of 2 - PCV) 12/31/1983 [facility]-Zoster Vaccines (1 of 2) 12/31/1983 CT Colonography 2009 FIT-DNA 2009 FIT 2009 FOBT 2009 Sigmoidoscopy 2009 [id number] Vaccine ( season) 2024 10/19/2021, 01/12/2021, 12/15/2020 [facility]-Influenza Vaccine (#1) 2025 09/06/2015 [facility]-Depression Screening 01/25/2026 025, 12/15/2024, 12/26/2021 [facility]-DTaP,Tdap,and Td Vaccines (2 - Td or Tdap) 02/13/2033 02/13/2023 Colonoscopy 01/29/2035 01/29/2025, 01/19, 01/08/2025, Additional history exists [facility]-Colorectal Cancer Screening 01/29/2035 [facility]-RSV Vaccine: 60+ Years or (1 - 1-dose 75+ series) 12/31/2039 [facility]-Obesity Intervention Completed 025, 12/15/2024, 07/21/2024, Additional history exists HPV Vaccines Aged Out No longer eligi ble based on patient's age to complete this topic [facility]-HIB Vaccines Aged Out No longer e ligible based on patient's age to complete this topic [facility]-Hepatitis A Vaccines Aged Out No longer eligible based on patient's age to complete this topic [facility]-IPV Vaccines Aged Out No longer e ligible based on patient's age to complete this topic [facility]-Rotavirus Vaccines Aged Out No lo nger eligible based on patient's age to complete this topic Procedures Procedure Name Priority Date/Time Associated Diagnosis Comments CBC WITH AUTO DIFFERENTIAL Routine 02/25/2025 COMPREHENSIVE METABOLIC PANEL, PLASMA Routine 02/25/2025 C-REACTIVE PROTEIN, PLASMA Routine 02/25/2025 QUANTIFERON TB GOLD PLUS Routine 02/25/2025 Crohn's disease of small intestine without complication (CMS/HCC) COLONOSCOPY 01/29/2025 11:28 AM EDT from Last 3 Months or Most Recently Relevant to Health Maintenance Results * Quantiferon TB Gold (02/25/2025) Blood Venous blood specimen / Unknown Result [facility] Janet BANUELOS LAB BLOOD ORDERABLES Final Result EXTERNAL LAB * CBC and Differential (02/25/2025) Blood Venous blood specimen / Unknown Result [facility] Historical Provider LAB BLOOD ORDERABLES Gretchen l Result * C-Reactive Protein, Plasma (02/25/2025) Blood Venous blood specimen / Unknown Result [facility] Historical Provider LAB BLOOD ORDERABLES Gretchen l Result * Comprehensive Metabolic Panel, Plasma (02/25/2025) Blood Venous blood specimen / Unknown us Historical Provider LAB BLOOD ORDERABLES Gretchen l Result * Colonoscopy (01/29/2025 11:28 AM EDT) Anatomical Region Laterality Modality Endoscopy 01/29/2025 10:5 7 AM EDT Impressions 01/29/2025 11:28 AM EDT Please see media tab for the result. Information added by interface. Narrative Procedure Note Clare Cardona MD - 01/29/2025 IMPRESSION: Please see media tab for the result. Information added by interface. us External Provider GI PROCEDURE ORDERABLES Final Result from Last 3 Months or Most Recently Relevant to Health Maintenance Insurance [facility] MEDICAID Care Teams Powderman Relationship Specialty Start Date End Date Tomer Back MD PCP - General Family Medicine 01/21/24
--- OUTSIDE RECORDS SUMMARY | 2025-05-04 08:59 | XMS_ITS | Encounter Summary ---
Author Organization Healthcare Address [address] [place] [address] Care Team Providers Care Converting Technician Name Role Phone Tomer Back MD Primary Care Provider Corine vailable Reason for Visit * Reason Comments Med Refill Encounter Details Date Type Department Care Team (Late st Contact Info) Description 07/10/2021 Refill [place] [facility] Medicine Specialties [address], [address] [place] [address] Janet Saldivar PA [address] [place] [address] Social History Tobacco Use Types Packs/Day Years Used Date Smoking Tobacco: Never Smokeless Tobacco: Never Alcohol Use Standard Drinks/Week Comments No 0 (1 standard drink = 0.6 oz pur e alcohol) PHQ-2 Answer Date Recorded Patient Health Questionnaire-2 Score 0 06/13/2021 Sex and Gender Information Value Date Recorded Sex Assigned at Not on file Legal Sex Male 6:47 PM EDT Gender Identity Not on file Sexual Orientation Not on file COVID-19 Exposure Response Date Recorded In the last month, have you been in contact with someone who was confirmed or suspected to have Coronavirus / COVID-19? No / Unsure 06/13/2021 9:55 AM EDT documented as of this encounter Miscellaneous Notes * Telephone Encounter - Sheba Jimenez RN - 07/10/2021 12:30 PM EDT Labs reviewed for collection date of 06/16/2021. Refill sent for 1 juan supply with 1 refill. Labs due: 09/16/2021 documented in this encounter Plan of Treatment Upcoming Encounters Date Type Department Care Team (Late st Contact Info) Description 06/17/2025 10:20 AM EDT Office Visit [facility] Medicine Specialties [address], [address] [place] [address] Janet Saldivar PA [address] [place] [address] 07/27/2025 2:00 PM EDT Clinical Support [facility] Lab [address], [address] [place] [address] 07/27/2025 3:00 PM EDT Office Visit [facility] Urology [address], [address] [place] [address] Yolande House PA [address] [place] [address] documented as of this encounter Visit Diagnoses Not on filedocumented in this encounter Additional Health Concerns Assessment Noted Time A fall risk assessment has been complete d for the patient 06/13/2021 10:09 AM EDT documented as of this encounter Care Teams Converting Technician Relationship Specialty Start Date End Date Tomer Back MD PCP - General Family Medicine 01/21/24 documented as of this encounter
--- OUTSIDE RECORDS SUMMARY | 2025-05-04 08:59 | XMS_ITS | Encounter Summary ---
Author Organization Healthcare Address [address] [place] [address] Care Team Providers Care Structural Iron Erector Name Role Phone Tomer Back MD Primary Care Provider Corine vailable Reason for Visit * Reason Comments Med Refill Encounter Details Date Type Department Care Team (Late st Contact Info) Description 06/11/2022 Refill [place] [facility] Medicine Specialties [address], [address] [place] [address] Janet Saldivar PA [address] [place] [address] Crohn's disease of small intestine without complication (CMS/HCC) Social History Tobacco Use Types Packs/Day Years Used Date Smoking Tobacco: Never Smokeless Tobacco: Never Alcohol Use Standard Drinks/Week Comments No 0 (1 standard drink = 0.6 oz pur e alcohol) PHQ-2 Answer Date Recorded Patient Health Questionnaire-2 Score 0 05/22/2022 Sex and Gender Information Value Date Recorded Sex Assigned at Not on file Legal Sex Male 6:47 PM EDT Gender Identity Not on file Sexual Orientation Not on file COVID-19 Exposure Response Date Recorded In the last 10 days, have yo u been in contact with someone who was confirmed or suspected to have Coronavirus/COVID-19? No / Unsure 05/29/2022 12:45 PM EDT documented as of this encounter Miscellaneous Notes * Telephone Encounter - Vernon Mei - 06/11/2022 12:37 PM EDT Routing refill request to appropriate in-basket for review. documented in this encounter Plan of Treatment Upcoming Encounters Date Type Department Care Team (Late st Contact Info) Description 06/17/2025 10:20 AM EDT Office Visit [facility] Medicine Specialties [address], [address] [place] [address] Janet Saldivar PA [address] [place] [address] 07/27/2025 2:00 PM EDT Clinical Support [facility] Lab [address], [address] [place] [address] 07/27/2025 3:00 PM EDT Office Visit [facility] Urology [address], [address] [place] [address] Yolande House PA [address] [place] [address] documented as of this encounter Visit Diagnoses Diagnosis Crohn's disease of small intestine without complication (CMS/HCC) documented in this encounter Additional Health Concerns Assessment Noted Time A fall risk assessment has been complete d for the patient 05/29/2022 1:14 PM EDT documented as of this encounter Care Teams Structural Iron Erector Relationship Specialty Start Date End Date Tomer Back MD PCP - General Family Medicine 01/21/24 documented as of this encounter
--- OUTSIDE RECORDS SUMMARY | 2025-05-04 08:59 | XMS_ITS | Encounter Summary ---
Author Organization [facility] Address [address] [place] [address] Care Team Providers Care Nursing Service Administrator Name Role Phone Tomer Back MD Primary Care Provider Corine vailable Encounter Details Date Type Department Care Team (Latest Contact Info) Description 01/29/2025 Lab Requisition [facility] [address] [place] [address] Clare Cardona MD [address] [place] [phone] Crohn's disease, unspecified, without complications (CMS/HCC) Social History Tobacco Use Types Packs/Day Years Used Date Smoking Tobacco: Never Passive Smoke Exposure: Never Smokeless Tobacco: Never Alcohol Use Standard [...] as of this encounter Plan of Treatment Upcoming Encounters Date Type Department Care Team (Late st Contact Info) Description 06/17/2025 10:20 AM EDT [facility] [address], [address] [place] [phone] Janet Saldivar PA [address] [place] [address] 07/27/2025 2:00 PM EDT Clinical Support [facility] Lab [address], [address] [place] [address] 07/27/2025 3:00 PM EDT Office Visit [facility] Urology [address], [address] [place] [address] Yolande House PA [address] [place] [address] documented as of this encounter Procedures Procedure Name Priority Date/Time Associated Diagnosis Comments SURGICAL PATHOLOGY EXAM Routine 01/29/2025 Crohn's disease, unspecified, without complications ([facility]) documented in this encounter Results * Surgical Pathology Exam (01/29/2025) Case Report Surgical Pathology Case: [id number] Authorizing Provider: Clare Cardona MD Collected: 01/29/2025 Ordering Location: [facility] Lab Received: 01/29/2025 1326 Pathologist: Alistair Durant DO Specimens: A) - Cecum, cecum polyp B) - Colon, Right, right colon biopsy C) - Colon, Left, left colon biopsy D) - Transverse Colon, transverse colon polyp 02/01/2025 2:12 PM EDT [facility] Final Diagnosis A. LARGE INTESTINE, CECUM, POLYP, BIOPSY: - SESSILE SERRATED LESION. B. LARGE INTESTINE, RIGHT COLON, BIOPSY: - NEGATIVE FOR ACTIVE DISEASE OR DYSPLASIA (CLINICAL OF CROHN'S DISEASE). C. LARGE INTESTINE, LEFT COLON, BIOPSY: - NEGATIVE FOR ACTIVE DISEASE OR DYSPLASIA (CLINICAL OF CROHN'S DISEASE). D. LARGE INTESTINE, TRANSVERSE COLON, POLYP, BIOPSY: - TUBULAR ADENOMA. 02/01/2025 2:12 PM EDT [facility] at 1412 EDT Clinical Information Crohn's disease, unspecified, without complications Crohn's disease on Entyvio Crohn's disease of the small bowel and colon (ileal disease on colonoscopy in 2022, previous documentation from 2013 with report of colonic disease) Colonoscopy findings: - The terminal ileum appeared normal. - A 4 mm polyp was found in the cecum. - A 5 mm polyp was found in the transverse colon. - Scattered diverticula were found in the sigmoid colon. - The colon was otherwise normal in appearance (SES-CD 0). 02/01/2025 2:12 PM EDT [facility] Gross Description A. CECUM POLYP Received in formalin labeled c ecum polyp , is one white-alexis soft fragment of tissue measuring 0.7 cm in greatest dimension. Entirely submitted in cassette A1. Cold Time: 0 Zee C Mar B. RIGHT COLON BIOPSY Received in formalin labeled r ight colon biopsy , are 3 pink-alexis soft fragments of tissue measuring from 0.2 cm to 0.4 cm in greatest dimension. Entirely submitted in cassette B1. Cold Time: 0 Zee C Mar C. LEFT COLON BIOPSY Received in formalin labeled l eft colon biopsy , are 3 pink-alexis soft fragments of tissue measuring from 0.2 cm to 0.3 cm in greatest dimension. Entirely submitted in cassette C1. Cold Time: 0 Eze C Mar D. TRANSVERSE COLON POLYP Received in formalin labeled t ransverse colon polyp , is one red-alexis soft fragment of tissue measuring 0.5 cm. Entirely submitted in cassette D1. Cold Time: 0 Zee C Mar 02/01/2025 2:12 PM EDT [facility] Note: A resident was involved in the service. I attest I examined the relevant preparations for the specimens and confirmed the diagnosis or interpretation. 02/01/2025 2:12 PM EDT [facility] Tissue Transverse colon structure / Unknown 01/29/2025 01/29/2025 1:26 PM EDT Tissue specimen (specimen) Right colon structure / Unknown 01/29/2025 01/29/2025 1:26 PM EDT Tissue specimen (specimen) Left colon structure / Unknown 01/29/2025 01/29/2025 1:26 PM EDT Tissue specimen (specimen) Transverse colon structure / Unknown 01/29/2025 01/29/2025 1:26 PM EDT us Clare Cardona MD LAB PATHOLOGY ORDERABLES Final Result [facility] [address] [place] [address] documented in this encounter Visit Diagnoses Diagnosis Crohn's disease, unspecified, without complications (CMS/HCC) documented in this encounter Additional Health Concerns Assessment Noted Time PHQ-9 Depression Total Score: 5 12/15/19 25 10:47 AM EST A fall risk assessment has been complete d for the patient 01/25/2025 1:36 PM EDT A Body Mass Index follow-up plan has been documented for the patient 01/25/2025 3:12 PM EDT documented as of this encounter Care Teams Nursing Service Administrator Relationship Specialty Start Date End Date Tomer Back MD PCP - General Family Medicine 01/21/24 documented as of this encounter
--- OUTSIDE RECORDS SUMMARY | 2025-05-04 08:59 | XMS_ITS | Encounter Summary ---
Author Organization [facility] Address [address] [place] [address] Care Team Providers Care Zoology Teacher Name Role Phone Tomer Back MD Primary Care Provider Corine vailable Encounter Details Date Type Department Care Team (Late st Contact Info) Description 03/02/2025 Orders Only [facility] Medicine Specialties [address] [place] [address] Sheba Jimenez, RN MEDICINE SPECIALTIES CLINIC Crohn's disease of small intestine without complication [...] Description 06/17/2025 10:20 AM EDT Office Visit [facility] Medicine Specialties [address], [address] [place] [address] Janet Saldivar PA [address] [place] [phone] 07/27/2025 2:00 PM EDT Clinical Support [facility] Lab [address] [place] [phone] 07/27/2025 3:00 PM EDT Office Visit [facility] Urology [address], [address] [place] [address] Yolande House, [place] [address] [place] [address] documented as of this encounter Procedures Procedure Name Priority Date/Time Associated Diagnosis Comments QUANTIFERON TB GOLD PLUS Routine 02/25/2025 Crohn's disease of small intestine without complication (CMS/HCC) CBC WITH AUTO DIFFERENTIAL Routine 02/25/2025 C-REACTIVE PROTEIN, PLASMA Routine 02/25/2025 COMPREHENSIVE METABOLIC PANEL, PLASMA Routine 02/25/2025 documented in this encounter Results * CBC and Differential (02/25/2025) Blood Venous blood specimen / Unknown Result [facility] Provider MD LAB BLOOD ORDERABLES Gretchen l Result * Comprehensive Metabolic Panel, Plasma (02/25/2025) Blood Venous blood specimen / Unknown [facility] Provider MD LAB BLOOD ORDERABLES Gretchen l Result * C-Reactive Protein, Plasma (02/25/2025) Blood Venous blood specimen / Unknown [facility] Provider MD LAB BLOOD ORDERABLES Gretchen l Result * Quantiferon TB Gold (02/25/2025) Blood Venous blood specimen / Unknown us Janet BANUELOS LAB BLOOD ORDERABLES Final Result EXTERNAL LAB documented in this encounter Visit Diagnoses Diagnosis Crohn's disease [...] documented as of this encounter Care Teams Zoology Teacher Relationship Specialty Start Date End Date Tomer Back MD PCP - General Family Medicine 01/21/24 documented as of this encounter
--- OUTSIDE RECORDS SUMMARY | 2025-05-04 08:59 | XMS_ITS | Encounter Summary ---
Author Organization [facility] Address [address] [place] [address] Care Team Providers Care Assistant Professor Of Life Sciences Name Role Phone Tomer Back MD Primary Care Provider Corine vailable Reason for Visit * Reason Comments Med Refill Encounter Details Date Type Department Care Team (Late st Contact Info) Description 09/10/2022 Refill [facility] Medicine [facility] [address], [address] [place] [address] Janet Saldivar PA [address] [place] [address] Crohn's disease of small intestine [...] on file documented as of this encounter Miscellaneous Notes * Telephone Encounter - Vernon Mei - 09/26/2022 8:19 AM EST Per protocol, 1 medication(s), azathioprine, has been approved for 30 day supply with 2 refill(s) to [facility]. * Telephone Encounter - Sheba Jimenez RN - 09/12/2022 3:11 PM EST Talked with Mr. Marshall via phone-he has a few days left of AZA he will plan to complete labs at [facility] next week. Orders faxed. * Telephone Encounter - Arnav Julian - 09/11/2022 7:49 AM EST Refill request does not meet protocol. Sending to clinic for review. Additional info: Clarification required: No labs on file since May, no appt upcoming until Nov and not on infusion therapy. Please review, thanks documented in this encounter Plan of Treatment Upcoming Encounters Date Type Department Care Team (Late st Contact Info) Description 06/17/2025 10:20 AM EDT Office Visit [facility] Medicine Specialties [address] [place] [address] Janet Saldivar PA [address] [place] [address] 07/27/2025 2:00 PM EDT Clinical Support [facility] Lab [address] [place] [address] 07/27/2025 3:00 PM EDT Office Visit [facility] Urology [address] [place] [address] Yolande House PA [address] [place] [address] documented as of this encounter Visit Diagnoses Diagnosis Crohn's disease of small intestine without complication (CMS/HCC) documented in this encounter Additional Health Concerns Assessment Noted Time A fall risk assessment has been complete d for the patient 08/08/2022 2:17 PM EDT documented as of this encounter Care Teams Assistant Professor Of Life Sciences Relationship Specialty Start Date End Date Tomer Back MD PCP - General Family Medicine 01/21/24 documented as of this encounter
--- OUTSIDE RECORDS SUMMARY | 2025-05-04 08:59 | XMS_ITS | Encounter Summary ---
Author Organization [facility] Address [address] [place] [address] Care Team Providers Care Cut Out Worker Name Role Phone Tomer Back MD Primary Care Provider Corine vailable Encounter Details Date Type Department Care Team (Late st Contact Info) Description 12/05/2023 Orders Only External Location [address] [place] [address] Fabrice Barber MD [address] [place] [address] Social History Tobacco Use Types Packs/Day Years Used Date Smoking Tobacco: Never Passive Smoke Exposure: Never Smokeless Tobacco: Never Alcohol Use Standard Drinks/Week Comments No 0 (1 standard drink = 0.6 oz pur e alcohol) PHQ-2 Answer Date Recorded Patient Health Questionnaire-2 Score 0 05/28/2023 PHQ-2A Answer Date Recorded Patient Health Questionnaire-2 [...] Description 06/17/2025 10:20 AM EDT Office Visit [place] [facility] [address], [address] [place] [address] Janet Saldivar, V[place] [address] [place] [address] 07/27/2025 2:00 PM EDT Clinical Support [facility] Lab [address], [address] [place] [phone] 07/27/2025 3:00 PM EDT Office Visit [facility] Urology [address], [address] [place] [address] Yolande House PA [address] [place] [address] documented as of this encounter Procedures Procedure Name Priority Date/Time Associated Diagnosis Comments MR OUTSIDE IMAGES 12/05/2023 8:39 AM EST documented in this encounter Results * MR transfer of outside films (12/05/2023 8:39 AM EST) Anatomical Region Laterality Modality Magnetic Resonan ce 12/05/2023 8:39 AM EST us Fabrice Barber MD IMG MRI PROCEDURES Final Result documented in this encounter Visit Diagnoses Not on filedocumented in this encounter Additional Health Concerns Assessment Noted Time A fall risk assessment has been complete d for the patient 05/28/2023 8:11 AM EDT A Body Mass Index follow-up plan has been documented for the patient 05/28/2023 8:54 AM EDT documented as of this encounter Care Teams Cut Out Worker Relationship Specialty Start Date End Date Tomer Back MD PCP - General Family Medicine 01/21/24 documented as of this encounter
--- OUTSIDE RECORDS SUMMARY | 2025-05-04 08:59 | XMS_ITS | Encounter Summary ---
Author Organization [facility] Address [address] [place] [address] Care Team Providers Care Color Specialist Name Role Phone Tomer Back MD Primary Care Provider Corine vailable Reason for Visit * Reason Onset Date Comments New Entyvio Orders 02/12/2025 Encounter Details Date Type Department Care Team (Late Contact Info) Description 02/12/2025 Telephone [facility] [address] [place] [phone] Ronny Pyle, RN [facility] New Entyvio Orders Social History Tobacco Use Types Packs/Day Years [...] Description 06/17/2025 10:20 AM EDT Office Visit [place] [facility] [address], [address] [place] [phone] Janet Saldivar, PA [address] [place] [address] 07/27/2025 2:00 PM EDT Clinical Support [facility] [address], [address] [place] [address] 07/27/2025 3:00 PM EDT Office Visit [facility] Urology [address], [address] [place] [address] Yolande House PA [address] [place] [address] documented as of this encounter [...] documented as of this encounter Care Teams Color Specialist Relationship Specialty Start Date End Date Tomer Back MD PCP - General Family Medicine 01/21/24 documented as of this encounter
--- OUTSIDE RECORDS SUMMARY | 2025-05-04 08:59 | XMS_ITS | Patient Health Record ---
Author Organization [facility] Address [address] [place] [address] [facility] [address] [place] [address] Care Team Providers Care Medication Manager Name Role Phone Randy Gates Primary Care Provider [phone] Migration, Provider Unavailable Unavailable Allergies Allergen (clinical drug ingredient) Drug/Non Drug Allergy documented on EMR Reaction Allergy Type Onset Date Status Penicillin Unknown Drug Allergy Active diclofenac Diclofenac myalgias Drug Allergy Activ e Reason For Referral No Information Medications Medication SIG (Take, Route, Frequency, Duration) Notes Start Date End Date Status azaTHIOprine 50 MG 1.5 tab(s) orally once a day Active Multivitamin MULTIPLE VITAMINS 1 CAP(S) ORALLY ONCE A DAY *Please review and pick correct strength-formulatio n from [employer] options. If intended option is not shown, discontinue and re-order from Quick Search* Active amLODIPine Besylate 5 MG TAKE 1 TABLET BY MOUTH ONCE DAILY; Duration: 30 Active Aspirin 81 MG 1 TAB(S) ORALLY ONCE A DAY *Please review and pick correct strength-formulatio n from [employer] options. If intended option is not shown, discontinue and re-order from Quick Search* Active Rosuvastatin Calcium 5 MG 1 CAP(S) ORALLY ONCE A DAY; Duration: 90 DAYS *Please review and pick correct strength-formulatio n from [employer] options. If intended option is not shown, [...] for pain; Duration: 30 day(s) 08/29/2021 Active Immunizations Vaccine Route Administration Date Status Comme nts Influenza-Fluzone 3+years (NON-MEDICARE) IM Intramuscular 09/06/2015 Administered Social History Tobacco Use: Social History Observation Description Date Details (start date - stop date) Never Smoker NA - NA Smoking: Question Answer Notes Are you a: nonsmoker Section Notes: Lives with spouse. Lives with spouse. Lives with spouse. Lives with spouse. Lives with spouse. Lives with spouse. Lives with spouse. Lives with spouse. Lives with spouse. Lives with spouse. Lives with spouse. Lives with spouse. Lives with spouse. Problems Problem Type SNOMED Code ICD Code Onset Dates Problem Status W/U Status Risk Notes Problem Mixed hyperlipidemia (867995681) Mixed hyperlipidemia (E78.2) Active confirmed Problem Essential hypertension (40928317) HTN (hypertension), benign (I10) Active confirmed Problem Umbilical hernia (336051745) Umbilical hernia without obstruction and without gangrene (K42.9) Active confirmed Problem Crohn's disease (24451062) Crohns disease without complication, unspecified gastrointestinal tract location (K50.90) Active confirmed Problem History of malignant basal cell neoplasm of skin (situation) (578269425) History of basal cell carcinoma of skin (Z85.828) Active confirmed Problem Asymptomatic microscopic hematuria (6301995769516375 9) Asymptomatic microscopic hematuria (R31.21) Active confirmed Problem Tinnitus of left ear (3197840769730) Tinnitus of left ear (H93.12) Active confirmed Encounters Encounter Location Date Provider Diagnosis [facility] [address] [place], [place] [address] 01/23/2025 Provider Migration Herpes zoster withou t complication B02.9 Assessments Encounter Date Diagnosis (ICD Code) Assessment Notes Treatment Notes Treatment Clinical Notes Section Notes 01/23/2025 Herpes zoster without complication (ICD-10 - B02.9) Plan Of Treatment Pending Test Test Name Order Date N-CMP 06/29/2008 N-Lipid Panel 06/29/2008 VENIPUNCT, ROUTINE* 09/06/2015 Insurance Providers Payer Name Payer Address Payer Phone Subscriber Number Group Number Insured Name Patient Relationship to Insured Coverage Start Date Coverage End Date [facility] [address] [place] [address] [id number] Sadi Thompson Self - patient is the insured Medications Administered Medication Instructions Date of Administration Dosage Notes Kenalog 08/17/2014 1 mL Kenalog 12/14/2015 1 mL Medical (General) History Medical History History ICD Code HLD Low back pain Crohns HTN skin cancer Surgical History Surgery Date(Month/Year) skin ca removed Colonoscopy 2014 colonoscopy 2016 skin cancer removed 2019
--- OUTSIDE RECORDS SUMMARY | 2025-05-04 08:59 | XMS_ITS | Encounter Summary ---
Author Organization [facility] Address [address] [place] [address] Care Team Providers Care Blind Stitch Machine Operator Name Role Phone Tomer Back MD Primary Care Provider Corine vailable Encounter Details Date Type Department Care Team (Late st Contact Info) Description 03/02/2025 Results Follow-Up [facility] Medicine Specialties [address], [address] [place] [phone] Janet Saldivar PA [address] [place] [address] Social History Tobacco Use Types [...] Description 06/17/2025 10:20 AM EDT Office Visit [facility] Medicine Specialties [address], [address] [place] [address] Janet Saldivar PA [address] [place] [address] 07/27/2025 2:00 PM EDT Clinical Support [facility] Lab [address], [address] [place] [address] 07/27/2025 3:00 PM EDT Office Visit [facility] Urology [address], [address] [place] [address] Yolande House PA [address] [place] [address] documented as of this encounter [...] documented as of this encounter Care Teams Blind Stitch Machine Operator Relationship Specialty Start Date End Date Tomer Back MD PCP - General Family Medicine 01/21/24 documented as of this encounter
--- OUTSIDE RECORDS SUMMARY | 2025-05-04 08:59 | XMS_ITS | Encounter Summary ---
Author Organization [facility] Address [address] [place] [address] Care Team Providers Care Medical Social Consultant Name Role Phone Tomer Back MD Primary Care Provider Corine vailable Encounter Details Date Type Department Care Team (Late st Contact Info) Description 01/25/2025 Results Follow-Up [facility] Urology [address], [address] [place] [address] Yolande House PA [address] [place] [address] Social History Tobacco Use Types [...] on file documented as of this encounter Functional Status * Over the past 2 weeks, how often have you been bothered by any of the following problems? Question Answer Date of Assessment Author Little interest or pleasure in doing things Not at all 01/25/2025 1:35 PM EDT Shy Akins LPN Feeling down, depressed, or hopeless Not at all 01/25/2025 1:35 PM EDT Shy Akins LPN Patient Health Questionnaire-2 Score 0 01/25/2025 1:35 PM EDT Shy Akins LPN documented as of this encounter Plan of Treatment Upcoming Encounters Date Type Department Care Team (Late st Contact Info) Description 06/17/2025 10:20 AM EDT Office Visit [facility] Medicine Specialties [address], [address] [place] [address] Janet Saldivar PA [address] [place] [address] 07/27/2025 2:00 PM EDT Clinical Support [facility] Lab [address], [address] [place] [address] 07/27/2025 3:00 PM EDT Office Visit [facility] Urology [address], [address] [place] [address] Yolande House PA [address] [place] [address] documented as of this encounter Visit Diagnoses Not on filedocumented in this encounter Additional Health Concerns Assessment Noted Time PHQ-9 Depression Total Score: 5 12/15/19 10:47 AM EST A fall risk assessment has been complete d for the patient 01/25/2025 1:36 PM EDT A Body Mass Index follow-up plan has been documented for the patient 01/25/2025 3:12 PM EDT documented as of this encounter Care Teams Medical Social Consultant Relationship Specialty Start Date End Date Tomer Back MD PCP - General Family Medicine 01/21/24 documented as of this encounter
--- OUTSIDE RECORDS SUMMARY | 2025-05-04 08:59 | XMS_ITS | Encounter Summary ---
Author Organization [facility] Address [address] [place] [address] Care Team Providers Care Commercial Sewing Instructor Name Role Phone Tomer Back MD Primary Care Provider Corine vailable Reason for Visit * Reason Comments Med Refill Encounter Details Date Type Department Care Team (Late st Contact Info) Description 08/29/2021 Refill [place] [facility] [address], [address] [place] [address] Janet Saldivar PA [address] [place] [address] Social History Tobacco Use Types [...] Telephone Encounter - Sheba Jimenez RN - 09/11/2021 9:08 AM EST Request faxed to [facility] requesting lab results * Telephone Encounter - Sheba Jimenez RN - 09/07/2021 11:40 AM EST Spoke with patient via phone 09/07/2021-he has not completed labs at this point. He says he will plan to complete 09/07/2021. * Telephone Encounter - Sheba Jimenez RN - 08/29/2021 4:03 PM EST Patient to complete labs at [facility] in [place] next week Orders faxed to [phone]. Follow-up for results. documented in this encounter Plan of Treatment Upcoming Encounters Date Type Department Care Team (Late st Contact Info) Description 06/17/2025 10:20 AM EDT Office Visit [facility] Medicine Specialties [address], [address] [place] [address] Janet Saldivar PA [address] [place] [address] 07/27/2025 2:00 PM EDT Clinical Support [facility] Lab [address], [address] [place] [address] 07/27/2025 3:00 PM EDT Office Visit [facility] Urology [address], [facility] [place] [address] Yolande House PA [address] [place] [address] documented as of this encounter Visit Diagnoses Not on filedocumented in this encounter Additional Health Concerns Assessment Noted Time A fall risk assessment has been complete d for the patient 06/13/2021 10:09 AM EDT documented as of this encounter Care Teams Commercial Sewing Instructor Relationship Specialty Start Date End Date Tomer Back MD PCP - General Family Medicine 01/21/24 documented as of this encounter
--- OUTSIDE RECORDS SUMMARY | 2025-05-04 08:59 | XMS_ITS | Clinical Summary ---
Author Organization [employer] ([place], [place], [place], [place]) Address [address] [place] [address] Care Team Providers Care Bullard Operator Name Role Phone Unavailable Primary Care Provider Unavailabl e Allergies No known active allergies Social History Tobacco Use Types Packs/Day Years [...] Carlos A rded Speak language other than Peruvian at home Not on file 11/26/2023 Want help with school or training Not on file 11/26/2023 Substance Use Answer Date Recorded Used prescription meds for non-medical reasons N ot on file 11/26/2023 Used illegal drugs past 12 months Not on file 11/26/2023 Sex and Gender Information Value Date Recorded Sex Assigned at Not on file Legal Sex Male 2:09 PM DIRECTOR OF STRATEGIC ALLIANCES Gender Identity Not on file Sexual Orientation Not on file Plan of Treatment Health Maintenance Due Date Last Done Comments CT Colonography 1964 Colonoscopy 1964 Colorectal Cancer Screening 1964 FOBT/FIT 1964 Fit-DNA (Cologuard) 1964 Sigmoidoscopy 1964 Depression Screening (12+) 1976 Tobacco Cessation Counseling and Screening (12+) 1976 HIV Screening 12/31/1979 Hepatitis C Screening 1982 Lipid Panel 12/31/1999 Pneumococcal 50+ years (1 of 1 - PCV) 2014 Shingles Vaccine (Zoster) (1 of 2) 2014 COVID-19 VACCINE (4 - 2023- season) 2024 10/19/2021, 01/12/2021, 12/15/2020 Influenza Vaccine (#1) 2025 09/06/2015 DTAP/TDAP/TD VACCINES (2 - T d or Tdap) 02/13/2033 02/13/2023 Insurance
--- OUTSIDE RECORDS SUMMARY | 2025-05-04 08:59 | XMS_ITS | Referral Summary ---
Author Organization [employer] ([place], [place], [place], [place]) Address [address] [place] [address] Care Team Providers Care Ethylene Oxide Panelboard Operator Name Role Phone Unavailable Primary Care [...] Carlos A rded Speak language other than Sri Lankan at home Not on file 11/26/2023 Want help with school or training Not on file 11/26/2023 Substance Use Answer Date Recorded Used prescription meds for non-medical reasons N ot on file 11/26/2023 Used illegal drugs past 12 months Not on file 11/26/2023 Sex and Gender Information Value Date Recorded Sex Assigned at Not on file Legal Sex Male 2:09 PM ACTUARIAL DIRECTOR Gender Identity Not on file Sexual Orientation Not on file Plan of Treatment Not on file Insurance [facility]
[2025-05-04 09:16] LABS: Hematocrit 41.8 % (42.0-52.0); Hemoglobin 14.0 g/dL (14.1-18.0); Immature Granulocytes % 0.8 %; Mean Corpuscular HGB Conc 33.5 g/dL (31.8-35.4); Mean Corpuscular Hemoglobin 29.9 pg (27.0-31.2); Mean Corpuscular Volume 89.1 fl (80-94); Nucleated Red Blood Cells % 0 %; Platelet Count 255 K/mm3 (142-424); Red Blood Count 4.69 M/mm3 (4.60-6.20); Red Cell Distribution Width-SD 43.4 fL; White Blood Count 7.6 K/mm3 (4.8-10.8)
[2025-05-04 09:21] LABS: Alanine Aminotransferase 48 U/L (12-78); Albumin Level 4.4 g/dl (3.5-5.0); Albumin/Globulin Ratio 1.7 (1.1-1.8); Alkaline Phosphatase 85 U/L (38-126); Anion Gap 14.1 mEq/L (5-15); Aspartate Amino Transferase 42 U/L (17-59); Bilirubin,Total 0.6 mg/dl (0.2-1.3); Blood Urea Nitrogen 18 mg/dl (9-20); Calcium 9.1 mg/dl (8.4-10.2); Carbon Dioxide 27 mmol/L (22.0-30.0); Chloride 101 mmol/L (98-107); Creatinine,Serum 0.80 mg/dl (0.66-1.25); Estimated Glomerular Filt Rate 99 ml/min (>60); GFR (African American) 119 ML/MIN (>60); Globulin 2.6 g/dL (1.3-3.2); Glucose 123 mg/dl (74-100); Potassium 4.1 mmoL/L (3.5-5.1); Sodium 138 mmol/L (136-145); Total Protein,Serum 7.0 g/dl (6.3-8.2)
[2025-05-04] MEDS: VEDOLIZUMAB 300 MG in 0.9 % SODIUM CHLORIDE 250 ML 500 MG IV (09:24)
[2025-05-04 09:28] LABS: C-Reactive Protein 1.8 mg/L (0-4)
[2025-05-04 09:30] VITALS: BP 147/78; PULSE 75; RESP 18; O2SAT 96
[2025-05-04 10:10] VITALS: BP 156/83; PULSE 76; RESP 18; O2SAT 96
== END 2025-05-04 10:10 | disposition home or self-care (01) ==
LOC: INF 08:55
PROVIDERS: PCP Family Medicine; Visit Provider Physician Assistant
DX: K50.90 Crohn's disease, unspecified, without complications (principal)
CPT/HCPCS: 80053; 85025; 86140; 96413; J3380; J7050

== ENCOUNTER 2025-07-01 09:23 | Outpatient (CLI) | payer OTHER, SELFPAY ==
--- OUTSIDE RECORDS SUMMARY | 2025-01-23 17:30 | XMS_ITS ---
Author Organization [facility] Address [address] [facility] [address] [place] [address] Care Team Providers Care Hide Buyer Name Role Phone Randy Gates Primary Care Provider [phone] Migration, Provider Unavailable Unavailable Allergies Allergen (clinical drug ingredient) Drug/Non Drug Allergy documented on EMR Reaction Allergy Type Onset Date Status Penicillin Unknown Drug Allergy Active diclofenac Diclofenac myalgias Drug Allergy Activ e REASON FOR VISIT [facility] Encounter Medications Medication SIG (Take, Route, Frequency, Duration) Notes Start Date End Date Status Multivitamin MULTIPLE VITAMINS 1 CAP(S) ORALLY ONCE A DAY *Please review and pick correct strength-formulatio n from [employer] options. If intended option is not shown, discontinue and re-order from Quick Search* Active Rosuvastatin Calcium 5 MG 1 CAP(S) ORALLY ONCE A DAY; Duration: 90 DAYS *Please review and pick correct strength-formulatio n from [employer] options. If intended option is not shown, [...] review and pick correct strength-formulatio n from [employer] options. If intended option is not shown, discontinue and re-order from Quick Search* Active Encounters Encounter Location Date Provider Diagnosis [facility] [address] [place], [place] [address] 01/23/2025 Provider Migration Herpes zoster withou t [...] *Please review and pick correct strength-formulation from [employer]Normal options. If intended option is not shown, [...] * Sadi URIOSTEGUI EDOB:[birth year] (59 yo M)Acc No.[id number]:01/23/2025 Patient: Sadi MENSAH Provider: Yaneth webb Migration :1965 A ge:59 Y S ex:Male Date:01/23/2025 Address:[address] [place] [phone] Pcp:Randy Gates Subjective: * Chief Complaints: * 1 . Multum To Medispan Conversion Encounter. * Medical History: * Medications: T aking Aspirin 81 MG TABLET 1 TAB(S) ORALLY ONCE A DAY , Notes to Pharmacist: *Please review and pick correct strength-formulation from [employer] options. If intended option is not shown, discontinue and re-order from Quick Search*, Taking azaTHIOprine 50 MG Tablet 1.5 tab(s) orally once a day , Taking Multivitamin MULTIPLE VITAMINS CAPSULE 1 CAP(S) ORALLY ONCE A DAY , Notes to Pharmacist: *Please review and pick correct strength-formulation from [employer] options. If intended option is not shown, [...] *Please review and pick correct strength-formulation from [employer] options. If intended option is not shown, discontinue and re-order from Quick Search*.? * * Electronic signature of Prov ider Migration on 07/01/2025 at 09:41 AM EDT Sign off status: Pending * Provider: Yaneth webb Migration Date: 0 01/23/2025 Generated for Nahomy roman/Becka/Hanane on: 0 07/01/2025 09:41 AM EDT
--- OUTSIDE RECORDS SUMMARY | 2025-07-01 09:41 | XMS_ITS | Patient Health Record ---
Author Organization [facility] Address [address] [place] [address] [facility] [address] [place] [address] Care Team Providers Care Environmental Maintenance Worker Name Role Phone Randy Gates Primary Care Provider [phone] Migration, Provider Unavailable Unavailable Allergies Allergen (clinical [...] review and pick correct strength-formulatio n from [employer] options. If intended option is not shown, discontinue and re-order from Quick Search* Active amLODIPine Besylate 5 MG TAKE 1 TABLET BY MOUTH ONCE DAILY; Duration: 30 Active Aspirin 81 MG 1 TAB(S) ORALLY ONCE A DAY *Please review and pick correct strength-formulatio n from [employer] options. If intended option is not shown, discontinue and re-order from Quick Search* Active Rosuvastatin Calcium 5 MG 1 CAP(S) ORALLY ONCE A DAY; Duration: 90 DAYS *Please review and pick correct strength-formulatio n from [employer] options. If intended option is not shown, [...] W/U Status Risk Notes Problem Mixed hyperlipidemia (036730706) Mixed hyperlipidemia (E78.2) Active confirmed Problem Essential hypertension (12476622) HTN (hypertension), benign (I10) Active confirmed Problem Umbilical hernia (249863673) Umbilical hernia without obstruction and without gangrene (K42.9) Active confirmed Problem Crohn's disease (26657595) Crohns disease without complication, unspecified gastrointestinal tract location (K50.90) Active confirmed Problem History of malignant basal cell neoplasm of skin (situation) (084490858) History of basal cell carcinoma of skin (Z85.828) Active confirmed Problem Asymptomatic microscopic hematuria (6733024587192431 9) Asymptomatic microscopic hematuria (R31.21) Active confirmed Problem Tinnitus of left ear (9534369135677) Tinnitus of left ear (H93.12) Active confirmed Encounters Encounter Location Date Provider Diagnosis [facility] [address] [place], [place] [address] 01/23/2025 Provider Migration Herpes zoster withou t [...] Insured Coverage Start Date Coverage End Date [facility] [address] [place] [address] [id number] Sadi Thompson Self - patient is the insured Medications Administered Medication Instructions Date of Administration Dosage Notes Kenalog 08/17/2014 1 mL Kenalog 12/14/2015 1 mL Medical (General) History Medical History History ICD Code HLD Low back pain Crohns HTN skin cancer Surgical History Surgery Date(Month/Year) skin ca removed Colonoscopy 2014 colonoscopy 2016 skin cancer removed 2019
--- OUTSIDE RECORDS SUMMARY | 2025-07-01 09:41 | XMS_ITS | Encounter Summary ---
Author Organization [facility] Address [address] [place] [address] Care Team Providers Care Hospice Manager Name Role Phone Tomer Back MD Primary Care Provider Corine vailable Encounter Details Date Type Department Care Team (Late st Contact Info) Description 03/02/2025 Results Follow-Up [facility] Medicine Specialties [address], [address] [place] [address] Janet Saldivar PA [address] [place] [address] Social History Tobacco Use Types [...] Care Team (Late st Contact Info) Description 07/27/2025 2:00 PM EDT Clinical Support [facility] Lab [address], [address] [place] [address] 07/27/2025 3:00 PM EDT Office Visit [facility] Urology [address], [address] [place] [address] Yolande House PA [address] [place] [address] 08/26/2025 10:00 AM EST Office Visit [facility] Medicine Specialties [address], [address] [place] [address] Janet Saldivar PA [address] [place] [address] documented as of this encounter [...] documented as of this encounter Care Teams Hospice Manager Relationship Specialty Start Date End Date Tomer Back MD PCP - General Family Medicine 01/21/24 documented as of this encounter
--- OUTSIDE RECORDS SUMMARY | 2025-07-01 09:41 | XMS_ITS | Encounter Summary ---
Author Organization [facility] Address [address] [place] [address] Care Team Providers Care Food And Beverage Assistant Manager Name Role Phone Tomer Back MD Primary Care Provider Corine vailable Reason for Visit * Reason Comments Med Refill Encounter Details Date Type Department Care Team (Late st Contact Info) Description 08/29/2021 Refill [place] [facility] [address], [address] [place] [address] Janet Saldivar PA [address] [place] [address] Social History Tobacco Use Types [...] 09/11/2021 9:08 AM EST Request faxed to [facility] requesting lab results * Telephone Encounter - Sheba Jimenez RN - 09/07/2021 11:40 AM EST Spoke with patient via phone 09/07/2021-he has not completed labs at this point. He says he will plan to complete 09/07/2021. * Telephone Encounter - Sheba Jimenez RN - 08/29/2021 4:03 PM EST Patient to complete labs at [facility] in [place] next week Orders faxed to [phone]. Follow-up for results. documented in this encounter Plan of Treatment Upcoming Encounters Date Type Department Care Team (Late st Contact Info) Description 07/27/2025 2:00 PM EDT Clinical Support [facility] Lab [address], [address] [place] [address] 07/27/2025 3:00 PM EDT Office Visit [facility] Urology [address], [address] [place] [address] Yolande House PA [address] [place] [address] 08/26/2025 10:00 AM EST Office Visit [facility] Medicine Specialties [address], [address] [place] [address] Janet Saldivar PA [address] [place] [address] documented as of this encounter Visit Diagnoses Not on filedocumented in this encounter Additional Health Concerns Assessment Noted Time A fall risk assessment has been complete d for the patient 06/13/2021 10:09 AM EDT documented as of this encounter Care Teams Food And Beverage Assistant Manager Relationship Specialty Start Date End Date Tomer Back MD PCP - General Family Medicine 01/21/24 documented as of this encounter
--- OUTSIDE RECORDS SUMMARY | 2025-07-01 09:41 | XMS_ITS | Encounter Summary ---
Author Organization [facility] Address [address] [place] [address] Care Team Providers Care Metal Crafts Teacher Name Role Phone Tomer Back MD Primary Care Provider Corine vailable Encounter Details Date Type Department Care Team (Late Contact Info) Description 12/05/2023 Orders Only External Location [address] [place] [address] Fabrice Barber MD [address] [address] Social History Tobacco Use Types Packs/Day Years [...] Encounters Date Type Department Care Team (Late Contact Info) Description 07/27/2025 2:00 PM EDT Clinical Support [facility] Lab [address] [place] [address] 07/27/2025 3:00 PM EDT Office Visit [facility] Urology [address], [address] [place] [address] Yolande House PA [address] [place] [address] 08/26/2025 10:00 AM EST Office Visit [facility] Medicine Specialties [address], [address] [place] [address] Janet Saldivar PA [address] [place] [address] documented as of this encounter Procedures Procedure Name Priority Date/Time Associated Diagnosis Comments MR OUTSIDE IMAGES 12/05/2023 8:39 AM EST documented in this encounter Results * MR transfer of outside films (12/05/2023 8:39 AM EST) Anatomical Region Laterality Modality Magnetic Resonan ce 12/05/2023 8:39 AM EST Fabrice Barber MD IMG MRI PROCEDURES Final [...] documented as of this encounter Care Teams Metal Crafts Teacher Relationship Specialty Start Date End Date Tomer Back MD PCP - General Family Medicine 01/21/24 documented as of this encounter
--- OUTSIDE RECORDS SUMMARY | 2025-07-01 09:41 | XMS_ITS | Encounter Summary ---
Author Organization [facility] Address [address] [place] [address] Care Team Providers Care Painter Mirror Name Role Phone Tomer Back MD Primary Care Provider Corine vailable Encounter Details Date Type Department Care Team (Latest Contact Info) Description 01/29/2025 Lab Requisition [facility] [address] [place] [address] Clare Cardona MD [address] [place] [phone] Crohn's disease, unspecified, without complications (CMS/HCC) Social [...] Description 07/27/2025 2:00 PM EDT Clinical Support [facility] [address], [address] [place] [address] 07/27/2025 3:00 PM EDT Office Visit [facility] Urology [address], [address] [place] [address] Yolande House PA [address] [place] [address] 08/26/2025 10:00 AM EST Office Visit [facility] Medicine Specialties [address], [address] [place] [address] Janet Saldivar PA [address] [place] [address] documented as of this encounter Procedures Procedure Name Priority Date/Time Associated Diagnosis Comments SURGICAL PATHOLOGY EXAM Routine 01/29/2025 Crohn's disease, unspecified, without complications ([facility]) documented in this encounter Results * Surgical Pathology Exam (01/29/2025) Case Report Surgical Pathology Case: [id number] Authorizing Provider: Clare Cardona MD Collected: 01/29/2025 Ordering Location: [facility] Lab Received: 01/29/2025 1326 Pathologist: Alistair Durant DO Specimens: A) - Cecum, cecum polyp B) - Colon, Right, right colon biopsy C) - Colon, Left, left colon biopsy D) - Transverse Colon, transverse colon polyp 02/01/2025 2:12 PM EDT [facility] Final Diagnosis A. LARGE INTESTINE, CECUM, POLYP, BIOPSY: - SESSILE SERRATED LESION. B. LARGE INTESTINE, RIGHT COLON, BIOPSY: - NEGATIVE FOR ACTIVE DISEASE OR DYSPLASIA (CLINICAL OF CROHN'S DISEASE). C. LARGE INTESTINE, LEFT COLON, BIOPSY: - NEGATIVE FOR ACTIVE DISEASE OR DYSPLASIA (CLINICAL OF CROHN'S DISEASE). D. LARGE INTESTINE, TRANSVERSE COLON, POLYP, BIOPSY: - TUBULAR ADENOMA. 02/01/2025 2:12 PM EDT [facility] at 1412 EDT Clinical Information [...] appearance (SES-CD 0). 02/01/2025 2:12 PM EDT [facility] Gross Description A. CECUM POLYP [...] submitted in cassette C1. Cold Time: 0 Zee C Mar D. TRANSVERSE COLON POLYP Received in formalin labeled t ransverse colon polyp , is one red-alexis soft fragment of tissue measuring 0.5 cm. Entirely submitted in cassette D1. Cold Time: 0 Zee C Mar 02/01/2025 2:12 PM EDT [facility] Note: A resident was involved in the service. I attest I examined the relevant preparations for the specimens and confirmed the diagnosis or interpretation. 02/01/2025 2:12 PM EDT [facility] Tissue Transverse colon structure / Unknown 01/29/2025 01/29/2025 1:26 PM EDT Tissue specimen (specimen) Right colon structure / Unknown 01/29/2025 01/29/2025 1:26 PM EDT Tissue specimen (specimen) Left colon structure / Unknown 01/29/2025 01/29/2025 1:26 PM EDT Tissue specimen (specimen) Transverse colon structure / Unknown 01/29/2025 01/29/2025 1:26 PM EDT us Clare Cardona MD LAB PATHOLOGY ORDERABLES Final Result [facility] [address] [place] [address] documented in this encounter Visit Diagnoses Diagnosis [...] documented as of this encounter Care Teams Painter Mirror Relationship Specialty Start Date End Date Tomer Back MD PCP - General Family Medicine 01/21/24 documented as of this encounter
--- OUTSIDE RECORDS SUMMARY | 2025-07-01 09:41 | XMS_ITS ---
Author Organization [facility] Address [address] [place] [address] Care Team Providers Care Glaze Sprayer Name Role Phone Tomer Back MD Primary Care Provider Corine vailable Active Problems Problem Noted Date Diagnosed Date Umbilical hernia without obstruction and without gangrene 12/15/2024 Pseudogout 12/15/2024 Hypertension 12/15/2024 Asymptomatic microscopic hematuria 12/15/2024 Hyperlipidemia, unspecified 08/31/2024 Elevated prostate specific antigen (PSA) 024 Basal cell carcinoma (BCC) of left lower eyelid 05/29/2022 Overview (05/29/2022): Added automatically from request for surgery [id number] Crohn's disease of small intestine without compl [...]
--- OUTSIDE RECORDS SUMMARY | 2025-07-01 09:41 | XMS_ITS | Referral Summary ---
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
--- OUTSIDE RECORDS SUMMARY | 2025-07-01 09:41 | XMS_ITS | Encounter Summary ---
Author Organization [facility] Address [address] [place] [address] Care Team Providers Care Printed Circuit Designer Name Role Phone Tomer Back MD Primary Care Provider Corine vailable Encounter Details Date Type Department Care Team (Late st Contact Info) Description 05/05/2025 Results Follow-Up [facility] Medicine Specialties [address], [address] [place] [address] Janet Saldivar PA [address] [place] [address] Social History Tobacco Use Types [...] Description 07/27/2025 2:00 PM EDT Clinical Support [facility] Lab [address], [address] [place] [phone] 07/27/2025 3:00 PM EDT Office Visit [facility] Urology [address], [address] [place] [phone] Yolande House PA [address] [place] [address] 08/26/2025 10:00 AM EST Office Visit [facility] Medicine Specialties [address], [address] [place] [phone] Janet Saldivar PA [address] [place] [address] documented as of this encounter [...] documented as of this encounter Care Teams Printed Circuit Designer Relationship Specialty Start Date End Date Tomer Back MD PCP - General Family Medicine 01/21/24 documented as of this encounter
--- OUTSIDE RECORDS SUMMARY | 2025-07-01 09:41 | XMS_ITS | Encounter Summary ---
Author Organization [facility] Address [address] [place] [address] Care Team Providers Care Hot Die Picker Name Role Phone Tomer Back MD Primary Care Provider Corine vailable Encounter Details Date Type Department Care Team (Late st Contact Info) Description 05/05/[address] [facility] Medicine Specialties [address], [address] [place] [address] Janet Saldivar PA [address] [place] [address] Social History Tobacco Use Types [...] Description 07/27/2025 2:00 PM EDT Clinical Support [facility] [address], [address] [place] [phone] 07/27/2025 3:00 PM EDT Office Visit [facility] Urology [address], [address] [place] [address] Yolande House PA [address] [place] [address] 08/26/2025 10:00 AM EST Office Visit [facility] Medicine Specialties [address], [address] [place] [address] Janet Saldivar PA [address] [place] [address] documented as of this encounter Procedures Procedure Name Priority Date/Time Associated Diagnosis Comments COMPLETE METABOLIC PROFILE (CMP) Routine 05/05/2025 8:55 AM EDT CBC WITH AUTO DIFFERENTIAL Routine 05/05/2025 8:55 AM EDT C-REACTIVE PROTEIN, PLASMA Routine 05/05/2025 8:55 AM EDT documented in this encounter Results * COMPLETE METABOLIC PROFILE (CMP) (05/05/2025 8:55 AM EDT) us Janet Sánchez Stshannon PA LAB BLOOD ORDERABLES Final Result * C-Reactive Protein, Plasma (05/05/2025 8:55 AM EDT) Blood Venous blood specimen / Unknown us Janet Saldivar PA LAB BLOOD ORDERABLES Final Result * CBC and Differential (05/05/2025 8:55 AM EDT) Blood Venous blood specimen / Unknown us Janet Sánchez Stkirtelbeam PA LAB BLOOD ORDERABLES Final Result documented in this encounter Visit Diagnoses Not on filedocumented in this encounter Additional Health Concerns Assessment Noted Time PHQ-9 Depression Total Score: 5 02/25/20 25 10:47 AM EST A fall risk assessment has been complete d for the patient 01/25/2025 1:36 PM EDT A Body Mass Index follow-up plan has been documented for the patient 01/25/2025 3:12 PM EDT documented as of this encounter Care Teams Hot Die Picker Relationship Specialty Start Date End Date Tomer Back MD PCP - General Family Medicine 01/21/24 documented as of this encounter
--- OUTSIDE RECORDS SUMMARY | 2025-07-01 09:41 | XMS_ITS | Encounter Summary ---
Author Organization [facility] Address [address] [place] [address] Care Team Providers Care Extension Division Director Name Role Phone Tomer Back MD Primary Care Provider Corine vailable Reason for Visit * Reason Comments Med Refill Encounter Details Date Type Department Care Team (Late st Contact Info) Description 07/10/2021 Refill [place] [facility] Medicine Specialties [address], [address] [place] [address] Janet Saldivar PA [address] [place] [address] Social History Tobacco Use Types [...] Description 07/27/2025 2:00 PM EDT Clinical Support [facility] Lab [address], [address] [place] [address] 07/27/2025 3:00 PM EDT Office Visit [facility] Urology [address], [address] [place] [address] Yolande House PA [address] [place] [address] 08/26/2025 10:00 AM EST Office Visit [facility] Medicine Specialties [address], [address] [place] [address] Janet Saldivar PA [address] [place] [address] documented as of this encounter Visit Diagnoses Not on filedocumented in this encounter Additional Health Concerns Assessment Noted Time A fall risk assessment has been complete d for the patient 06/13/2021 10:09 AM EDT documented as of this encounter Care Teams Extension Division Director Relationship Specialty Start Date End Date Tomer Back MD PCP - General Family Medicine 01/21/24 documented as of this encounter
--- OUTSIDE RECORDS SUMMARY | 2025-07-01 09:41 | XMS_ITS | Clinical Summary ---
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
--- OUTSIDE RECORDS SUMMARY | 2025-07-01 09:41 | XMS_ITS | Clinical Summary ---
Author Organization [facility] Address [address] [place] [address] Care Team Providers Care Policy Writer Sales Name Role Phone Tomer Back MD Primary [...] Additional Information Patient not taking.Reported on 01/25/2025 [id number] lf-Na Asc-C 100 g reconstituted solution At [...] (05/29/2022): Added automatically from request for surgery [id number] Crohn's disease of small intestine without compl ication 02/06/2022 Decreased white blood cell count 05/06/2018 Basal cell carcinoma 05/24/2016 Crohn's disease 10/05/2014 Encounters Date Type Department Care Team Description 05/05/2025 Results Follow-Up [facility] Medicine Specialties [address] [place] [address] Janet Saldivar PA 05/05/2025 Orders Only [facility] Medicine Specialties [address], [address] [place] [address] Janet Saldivar PA from Last 3 Months Immunizations Immunization Administration [...] Description 07/27/2025 2:00 PM EDT Clinical Support [facility] Lab [address], [address] [place] [address] 07/27/2025 3:00 PM EDT Office Visit [facility] Urology [address], [address] [place] [address] Yolande House PA [address] [place] [address] 08/26/2025 10:00 AM EST Office Visit [facility] Medicine Specialties [address], [address] [place] [address] Janet Saldivar PA [address] [place] [address] Health Maintenance Due Date Last Done Comments [facility]-HIV Screening 1964 [facility]-Hepatitis C Screening 1964 [facility]-Infant/Child/Adol SDOH Screenings 1964 [facility]- SDOH Screenings 1982 [facility]-Adult SDOH Screenings 1982 [facility]-Pneumococcal Vaccine: 50+ Years (1 of 2 - PCV) 12/31/1983 [facility]-Zoster Vaccines (1 of 2) 12/31/1983 CT Colonography 2009 FIT-DNA 2009 FIT 2009 FOBT 2009 Sigmoidoscopy 2009 [id number] Vaccine ( season) 2025 10/19/2021, 01/12/2021, 12/15/2020 [facility]-Influenza Vaccine (#1) 2025 09/06/2015 [facility]-Depression Screening 01/25/2026 025, 12/15/2024, 12/26/2021 [facility]-DTaP,Tdap,and Td Vaccines (2 - Td or Tdap) 02/13/2033 02/13/2023 Colonoscopy 01/29/2035 01/29/2025, 04/10/2024, 01/08/2025, Additional history exists [facility]-Colorectal Cancer Screening [...] PROFILE (CMP) Routine 05/05/2025 8:55 AM EDT C-REACTIVE PROTEIN, PLASMA Routine 05/05/2025 8:55 AM EDT CBC WITH AUTO DIFFERENTIAL Routine 05/05/2025 8:55 AM EDT COLONOSCOPY 01/29/2025 11:28 AM EDT from Last 3 Months or Most Recently Relevant to Health Maintenance Results * COMPLETE METABOLIC PROFILE (CMP) (05/05/2025 8:55 AM EDT) us Janet B Stuffelbeam PA LAB BLOOD ORDERABLES Final Result * CBC and Differential (05/05/2025 8:55 AM EDT) Blood Venous blood specimen / Unknown us Janet B Stuffelbeam PA LAB BLOOD ORDERABLES Final Result * C-Reactive Protein, Plasma (05/05/2025 8:55 AM EDT) Blood Venous blood specimen / Unknown us Janet B Stuffelbeam PA LAB BLOOD ORDERABLES Final Result * Colonoscopy (01/29/2025 11:28 AM EDT) [...] Most Recently Relevant to Health Maintenance Insurance [facility] MEDICAID Care Teams Policy Writer Sales Relationship Specialty Start Date End Date Tomer Back MD PCP - General Family Medicine 01/21/24
--- OUTSIDE RECORDS SUMMARY | 2025-07-01 09:41 | XMS_ITS | Encounter Summary ---
Author Organization [facility] Address [address] [place] [address] Care Team Providers Care Teacher Instrumental Name Role Phone Tomer Back MD Primary Care Provider Corine vailable Reason for Visit * Reason Comments Med Refill Encounter Details Date Type Department Care Team (Late st Contact Info) Description 09/10/2022 Refill [facility] Medicine Specialties [address], [address] [place] [address] Janet Saldivar PA [address] [place] [address] Crohn's disease of small intestine [...] 30 day supply with 2 refill(s) to [facility]. * Telephone Encounter - Sheba Jimenez RN - 09/12/2022 3:11 PM EST Talked with Mr. Marshall via phone-he has a few days left of AZA he will plan to complete labs at [facility] next week. Orders faxed. * Telephone [...] Description 07/27/2025 2:00 PM EDT Clinical Support [facility] Lab [address], [address] [place] [address] 07/27/2025 3:00 PM EDT Office Visit [facility] Urology [address], [address] [place] [address] Yolande House PA [address] [place] [address] 08/26/2025 10:00 AM EST Office Visit [facility] Medicine Specialties [address], [address] [place] [address] Janet Saldivar PA [address] [place] [address] documented as of this encounter Visit Diagnoses Diagnosis Crohn's disease of small intestine without complication (CMS/HCC) documented in this encounter Additional Health Concerns Assessment Noted Time A fall risk assessment has been complete d for the patient 08/08/2022 2:17 PM EDT documented as of this encounter Care Teams Teacher Instrumental Relationship Specialty Start Date End Date Tomer Back MD PCP - General Family Medicine 01/21/24 documented as of this encounter
--- OUTSIDE RECORDS SUMMARY | 2025-07-01 09:41 | XMS_ITS | Encounter Summary ---
Author Organization [facility] Address [address] [place] [address] Care Team Providers Care Chemist Helper Name Role Phone Tomer Back MD Primary Care Provider Corine vailable Reason for Visit * Reason Comments Med Refill Encounter Details Date Type Department Care Team (Late st Contact Info) Description 06/11/2022 Refill [place] [facility] Medicine Specialties [address] [place] [address] Janet Saldivar PA [address] [place] [address] Crohn's disease of small intestine [...] Description 07/27/2025 2:00 PM EDT Clinical Support [facility] Lab [address], [address] [place] [address] 07/27/2025 3:00 PM EDT Office Visit [facility] Urology [address], [address] [place] [address] Yolande House PA [address] [place] [address] 08/26/2025 10:00 AM EST Office Visit [facility] Medicine Specialties [address], [address] [place] [address] Janet Saldivar PA [address] [place] [address] documented as of this encounter Visit Diagnoses Diagnosis Crohn's disease of small intestine without complication (CMS/HCC) documented in this encounter Additional Health Concerns Assessment Noted Time A fall risk assessment has been complete d for the patient 05/29/2022 1:14 PM EDT documented as of this encounter Care Teams Chemist Helper Relationship Specialty Start Date End Date Tomer Back MD PCP - General Family Medicine 01/21/24 documented as of this encounter
[2025-07-01 09:50] LABS: Hematocrit 44.0 % (42.0-52.0); Hemoglobin 15.2 g/dL (14.1-18.0); Immature Granulocytes % 0.3 %; Mean Corpuscular HGB Conc 34.5 g/dL (31.8-35.4); Mean Corpuscular Hemoglobin 30.7 pg (27.0-31.2); Mean Corpuscular Volume 88.9 fl (80-94); Nucleated Red Blood Cells % 0 %; Platelet Count 260 K/mm3 (142-424); Red Blood Count 4.95 M/mm3 (4.60-6.20); Red Cell Distribution Width-SD 42.3 fL; White Blood Count 6.2 K/mm3 (4.8-10.8)
[2025-07-01] MEDS: VEDOLIZUMAB 300 MG in 0.9 % SODIUM CHLORIDE 250 ML 500 MG IV (09:54)
[2025-07-01 09:55] VITALS: BP 130/71; PULSE 73; RESP 18; O2SAT 96
[2025-07-01 10:04] LABS: Alanine Aminotransferase 62 U/L (12-78); Albumin Level 4.4 g/dl (3.5-5.0); Albumin/Globulin Ratio 1.6 (1.1-1.8); Alkaline Phosphatase 86 U/L (38-126); Anion Gap 11.0 mEq/L (5-15); Aspartate Amino Transferase 61 U/L (17-59); Bilirubin,Total 0.5 mg/dl (0.2-1.3); Blood Urea Nitrogen 17 mg/dl (9-20); Calcium 9.0 mg/dl (8.4-10.2); Carbon Dioxide 28 mmol/L (22.0-30.0); Chloride 106 mmol/L (98-107); Creatinine,Serum 1.00 mg/dl (0.66-1.25); Estimated Glomerular Filt Rate 76 ml/min (>60); GFR (African American) 92 ML/MIN (>60); Globulin 2.7 g/dL (1.3-3.2); Glucose 96 mg/dl (74-100); Potassium 4.0 mmoL/L (3.5-5.1); Sodium 141 mmol/L (136-145); Total Protein,Serum 7.1 g/dl (6.3-8.2)
[2025-07-01 10:10] LABS: C-Reactive Protein 2.0 mg/L (0-4)
[2025-07-01 10:33] VITALS: BP 133/84; PULSE 89; RESP 18; O2SAT 96
== END 2025-07-01 10:33 | disposition home or self-care (01) ==
LOC: INF 09:24
PROVIDERS: PCP Family Medicine; Visit Provider Physician Assistant
DX: K50.90 Crohn's disease, unspecified, without complications (principal)
CPT/HCPCS: 80053; 85025; 86140; 96365; J3380; J7050

== ENCOUNTER 2025-08-30 08:57 | Outpatient (CLI) | payer OTHER, SELFPAY ==
--- OUTSIDE RECORDS SUMMARY | 2025-01-23 16:30 | XMS_ITS ---
Author Organization [facility] Address [address] [address] [facility] [address] [place] [address] Care Team Providers Care Animal Shelter Manager Name Role Phone Randy Gates Primary Care Provider Migration, Provider Unavailable Unavailable Allergies Allergen (clinical drug ingredient) Drug/Non Drug Allergy documented on EMR Reaction Allergy Type Onset Date Status Penicillin Unknown Drug Allergy Active diclofenac Diclofenac myalgias Drug Allergy Activ e REASON FOR VISIT [facility] Encounter Medications Medication SIG (Take, Route, Frequency, Duration) Notes Start Date End Date Status Multivitamin MULTIPLE VITAMINS 1 CAP(S) ORALLY ONCE A DAY *Please review and pick correct strength-formulatio n from [employer] options. If intended option is not shown, discontinue and re-order from Quick Search* Active Rosuvastatin Calcium 5 MG 1 CAP(S) ORALLY ONCE A DAY; Duration: 90 DAYS *Please review and pick correct strength-formulatio n from [employer] options. If intended option is not shown, discontinue and re-order from Quick Search* Active valACYclovir HCl 1 GM 1 tab(s) orally 2 times a day; Duration: 10 day(s) 08/29/2021 Active Triamcinolone Acetonide 0.5 % 1 malka applied topically 2 times a day; Duration: 7 day(s) 08/30/2021 Active Gabapentin 100 MG 1 cap(s) orally 3 times a day for pain; Duration: 30 day(s) 08/29/2021 Active azaTHIOprine 50 MG 1.5 tab(s) orally once a day Active amLODIPine Besylate 5 MG TAKE 1 TABLET BY MOUTH ONCE DAILY; Duration: 30 Active Aspirin 81 MG 1 TAB(S) ORALLY ONCE A DAY *Please review and pick correct strength-formulatio n from [employer] options. If intended option is not shown, discontinue and re-order from Quick Search* Active Encounters Encounter Location Date Provider Diagnosis [facility] [address] [place], [place] [address] 01/23/2025 Provider Migration Herpes zoster withou t complication B02.9 Assessments Encounter Date Diagnosis (ICD Code) Assessment Notes Treatment Notes Treatment Clinical Notes Section Notes 01/23/2025 Herpes zoster without complication (ICD-10 - B02.9) Plan Of Treatment Medication Medication Name Sig Start Date Stop Date Notes Rosuvastatin Calcium 5 MG 1 CAP(S) ORALLY ONCE A DAY; Duration: 90 DAYS *Please review and pick correct strength-formulation from [employer] options. If intended option is not shown, discontinue and re-order from Quick Search* valACYclovir HCl 1 GM 1 tab(s) orally 2 times a day; Duration: 10 day(s) 08/29/2021 Triamcinolone Acetonide 0.5 % 1 malka applied topically 2 times a day; Duration: 7 day(s) 08/30/2021 Gabapentin 100 MG 1 cap(s) orally 3 times a day for pain; Duration: 30 day(s) 08/29/2021 amLODIPine Besylate 5 MG TAKE 1 TABLET B Y MOUTH ONCE DAILY; Duration: 30 Progress Notes * Sadi URIOSTEGUI EDOB:[birth year] (59 yo M)Acc No.[id number]:01/23/2025 Patient: Sadi MENSAH Provider: Yaneth webb Migration :1965 A ge:59 Y S ex:Male Date:01/23/2025 Address:[address] [place] [id number] Pcp:Randy Gates Subjective: * Chief Complaints: * 1 . Multum To Medispan Conversion Encounter. * Medical History: * Medications: T aking Aspirin 81 MG TABLET 1 TAB(S) ORALLY ONCE A DAY , Notes to Pharmacist: *Please review and pick correct strength-formulation from [employer] options. If intended option is not shown, discontinue and re-order from Quick Search*, Taking azaTHIOprine 50 MG Tablet 1.5 tab(s) orally once a day , Taking Multivitamin MULTIPLE VITAMINS CAPSULE 1 CAP(S) ORALLY ONCE A DAY , Notes to Pharmacist: *Please review and pick correct strength-formulation from [employer] options. If intended option is not shown, discontinue and re-order from Quick Search* * Allergies: P enicillin, Diclofenac: myalgias. Objective: * Vitals: Assessment: * Assessment: 1. H erpes zoster without complication - B02.9 (Primary) Plan: * Treatment: 2. O thers Start Triamcinolone Acetonide Ointment, 0.5 %, 1 malka, applied topically, 2 times a day, 7 day(s), 80 gm, Refills 2; S tart amLODIPine Besylate Tablet, 5 MG, TAKE 1 TABLET BY MOUTH ONCE DAILY, 30, 30, Refills 5; S tart Rosuvastatin Calcium CAPSULE, 5 MG, 1 CAP(S), ORALLY, ONCE A DAY, 90 DAYS, 90 CAPSULE, Refills 1, Notes to Pharmacist: *Please review and pick correct strength-formulation from [employer] options. If intended option is not shown, discontinue and re-order from Quick Search*.? * * Electronic signature of Prov ider Migration on 08/30/2025 at 09:10 AM EST Sign off status: Pending * Provider: Yaneth webb Migration Date: 0 01/23/2025 Generated for Nahomy roman/Becka/Hanane on: 1 10/30/2024 09:10 AM EST
--- OUTSIDE RECORDS SUMMARY | 2025-07-27 14:00 | XMS_ITS | Encounter Summary ---
Author Organization [facility] Address [address] [place] [address] Care Team Providers Care Microbiology Lab Manager Name Role Phone Tomer Back MD Primary Care Provider Corine Yolande Molina Unavailable [phone] Reason for Visit * Reason Comments Follow-up Encounter Details Date Type Department Care Team (Late st Contact Info) Description 07/27/2025 3:00 PM EDT [facility] Visit [facility] [address], [address] [place] [address] Yolande House PA [address] [place] [address] Lower urinary tract symptoms (Primary Dx); Elevated PSA Social History Tobacco Use Types Packs/Day Years Used Date Smoking Tobacco: Never Passive Smoke Exposure: Never Smokeless Tobacco: Never Alcohol Use Standard Drinks/Week Comments No 0 (1 standard drink = 0.6 oz pur e alcohol) PHQ-2 Answer Date Recorded Patient Health Questionnaire-2 Score 0 07/27/2025 PHQ-9 Answer Date Recorded Patient Health Questionnaire-9 Score 5 12/15/2024 PHQ-2A Answer Date Recorded Patient Health Questionnaire-2 Score 0 05/28/2023 Sex and Gender Information Value Date Recorded Sex Assigned at Not on file Legal Sex Male 6:47 PM EDT Gender Identity Not on file Sexual Orientation Not on file documented as of this encounter Last Filed Vital Signs Vital Sign Reading Time Taken Comments Blood Pressure 146/88 07/27/2025 2:38 PM EDT Pulse 91 07/27/2025 2:38 PM EDT Temperature - - Respiratory Rate 16 07/27/2025 2:38 PM EDT Oxygen Saturation 97% 07/27/2025 2:38 PM EDT Inhaled Oxygen Concentration - - Weight 97.2 kg (214 lb 4.6 oz) 07/27/2025 2:38 P M EDT Height 181.6 cm (5' 11.5 ) 07/27/2025 2:38 PM ED T Body Mass Index 29.47 07/27/2025 2:38 PM EDT documented in this encounter Functional Status * Over the past 2 weeks, how often have you been bothered by any of the following problems? Question Answer Date of Assessment Author Little interest or pleasure in doing things Not at all 07/27/2025 2:39 PM EDT Matthew Andrade Feeling down, depressed, or hopeless Not at all 07/27/2025 2:39 PM EDT Matthew Andrade Patient Health Questionnaire -2 Score 0 07/27/2025 2:39 PM EDT Matthew Andrade * How difficult have these problems made it for you to do your work, take care of things at home, or get along with other people? Answer Date of Assessment Author Not difficult at all 07/27/2025 2:39 PM EDT Will Gabriel villeda documented as of this encounter Miscellaneous Notes * Progress Notes - Yolande House PA - 07/27/2025 3:00 PM EDT Subjective Patient ID: Sadi Marshall is a 59 y.o. male. HPI 59yoM presented 01/2024 for evaluation of elevated PSA. History as follows: Patient underwent screening psa resulting 5.3ng/ml. He saw Dr Barber and subsequently underwent prostate MRI showing 45 gm gland and a single PIRADS 3 lesion in left transition zone ( per report). Patient does have baseline urinary frequency but generally feels like he empties his bladder well. He has no past urologic surgeries and no known family history of prostate cancer. He has not had recent UTIs, fever , hematuria or flank pain. Medical history includes Crohn's disease of small bowel which is followed at GI. On initial evaluation here, PSA had normalized and Select MdX testing resulted very low risk. He was last seen 07/2024 at which time PSA was 5.07ng/ml. Patient returns today for follow up. He is noticing more slow stream and also nocturia 1-3x/night. PSA is pending. PVR: 34ml. Objective Physical Exam Vitals reviewed. Constitutional: Appearance: Normal appearance. Pulmonary: Effort: Pulmonary effort is normal. Neurological: Mental Status: He is alert and oriented to person, place, and time. Psychiatric: Mood and Affect: Mood normal. Behavior: Behavior normal. Thought Content: Thought content normal. Assessment & Plan Elevated PSA Outside MRI 12/14 showed single PIRADS 3 lesion Select MdX -low risk PSA has fluctuated but recently normalized. Lab is pending today. -continue close surveillance. Lower urinary tract symptoms - subjectively worsened with more slow stream and nocturia. Rx flomax, 0.4mg every day. Discussed expected benefit. PVR and IPSS at follow up. Orders: POC US Bladder Volume Follow up in about 6 months (around 01/25/2026) for w/PSA and PVR .IPSS documented in this encounter Plan of Treatment Upcoming Encounters Date Type Department Care Team (Late st Contact Info) Description 01/31/2026 8:50 AM EDT Clinical Support [facility] Lab [address], [address] [place] [phone] 01/31/2026 9:50 AM EDT Office Visit [facility] Urology [address], [address] [place] [phone] Yolande House PA [address] [place] [address] 03/01/2026 10:00 AM EDT Office Visit [facility] Medicine Specialties [address], [address] [place] [phone] Janet Saldivar PA [address] [place] [address] documented as of this encounter Procedures Procedure Name Priority Date/Time Associated Diagnosis Comments POC US BLADDER SCAN FOR VOLUME Routine 07/27/2025 3:07 PM EDT Lower urinary tract symptoms documented in this encounter Results * POC US Bladder Volume (07/27/2025 3:07 PM EDT) Urine, Volume 34 mL IMAGING Anatomical Region Laterality Modality Other us Yolande BANUELOS IMG POINT OF CARE ULTRASOUN D Final Result documented in this encounter Visit Diagnoses Diagnosis Lower urinary tract symptoms- Primary Other symptoms involving urinary system Elevated PSA Elevated prostate specific antigen (PSA) documented in this encounter Additional Health Concerns Assessment Noted Time PHQ-9 Depression Total Score: 5 12/15/19 25 10:47 AM EST A fall risk assessment has been complete d for the patient 07/27/2025 2:40 PM EDT A Body Mass Index follow-up plan has been documented for the patient 07/27/2025 3:13 PM EDT documented as of this encounter Care Teams Microbiology Lab Manager Relationship Specialty Start Date End Date Tomer Back MD PCP - General Family Medicine 01/21/24 Yolande House PA [address] [place] [address] Physician It Professional Urology 07/27/25 documented as of this encounter
--- OUTSIDE RECORDS SUMMARY | 2025-08-26 10:00 | XMS_ITS | Encounter Summary ---
Author Organization [facility] Address [address] [place] [address] Care Team Providers Care Lehr Loader Name Role Phone Tomer Back MD Primary Care Provider Corine Yolande Molina Unavailable [phone] Reason for Referral * Imaging (Routine) - Pending Review Specialty Diagnoses / Procedures Referred By Contac t Referred To Contact Gastroenterology Diagnoses Crohn's disease of small intestine without complication Adenomatous polyp of colon, unspecified part of colon Procedures Colonoscopy Janet Saldivar PA [address] [address] Phone: tel: fax: Referral ID Status Reason Start Date Expiration Date Visits Requested Visits Authorized [id number] Pending Review Specialty Services Required 08/26/2025 02/25/2027 1 1 * Consultation (Routine) - Authorized Specialty Diagnoses / Procedures Referred By Contac t Referred To Contact Diagnoses Crohn's disease of small intestine without complication Janet Saldivar PA [address] [address] Phone: tel: fax: Referral ID Status Reason Start Date Expiration Date V isits Requested Visits Authorized [id number] Authorized 08/26/2025 02/25/2027 1 1 Reason for Visit * Reason Comments Crohn's disease of small intestine witho ut complication Encounter Details Date Type Department Care Team (Late st Contact Info) Description 08/26/2025 10:00 AM EST Office Visit [facility] [address], [address] [place] [address] Janet Saldivar PA [address] [place] [address] Crohn's disease of small intestine without complication (Primary Dx); Long-term current use of vedolizumab; Adenomatous polyp of colon, unspecified part of colon Social History Tobacco Use Types Packs/Day Years Used Date Smoking Tobacco: Never Passive Smoke Exposure: Never Smokeless Tobacco: Never Alcohol Use Standard Drinks/Week Comments No 0 (1 standard drink = 0.6 oz pur e alcohol) PHQ-2 Answer Date Recorded Patient Health Questionnaire-2 Score 0 08/26/2025 PHQ-9 Answer Date Recorded Patient Health Questionnaire-9 Score 3 08/26/2025 PHQ-2A Answer Date Recorded Patient Health Questionnaire-2 Score 0 05/28/2023 Sex and Gender Information Value Date Recorded Sex Assigned at Not on file Legal Sex Male 6:47 PM EDT Gender Identity Not on file Sexual Orientation Not on file documented as of this encounter Last Filed Vital Signs Vital Sign Reading Time Taken Comments Blood Pressure 139/78 08/26/2025 10:21 AM EST Pulse 88 08/26/2025 10:21 AM EST Temperature 36.7 C (98 F) 08/26/2025 10:21 AM EST Respiratory Rate 18 08/26/2025 10:2 1 AM EST Oxygen Saturation 98% 08/26/2025 10: 21 AM EST Inhaled Oxygen Concentration - - Weight 95.2 kg (209 lb 14.1 oz) 025 10:21 AM EST Height 180.3 cm (5' 11 ) 08/26/2025 10: 21 AM EST Body Mass Index 29.27 08/26/2025 10:21 AM EST documented in this encounter Functional Status * Over the past 2 weeks, how often have you been bothered by any of the following problems? Question Answer Date of Assessment Author Little interest or pleasure in doing things Not at all 08/26/2025 10:24 AM Renetta Garcia Feeling down, depressed, or hopeless Not at all 08/26/2025 10:24 AM Renetta Garcia Patient Health Questionnaire -2 Score 0 08/26/2025 10:24 AM Renetta Garcia * Question Answer Date of Assessment Author Trouble falling or staying asleep, or sleeping too much Nearly every day 08/26/2025 10:24 AM Renetta Garcia Feeling tired or having little energy Not at all 08/26/2025 10:24 AM Renetta Garcia Poor appetite or overeating Not at all 08/26/2025 10 :24 AM Renetta Garcia Feeling bad about yourself - or that you are a failure or have let yourself or your family down Not at all 08/26/2025 10:24 AM Renetta Garcia Trouble concentrating on things, such as reading the newspaper or watching television Not at all 08/26/2025 10:24 AM Renetta Garcia Moving or speaking so slowly that other people could have noticed? Or the opposite - being so fidgety or restless that you have been moving around a lot more than usual. Not at all 08/26/2025 10:24 AM Renetta Garcia Thoughts that you would be better off or hurting yourself in some way Not at all 08/26/2025 10:24 AM Renteta Garcia Patient Health Questionnaire-9 Score 3 08/26/2025 10:24 AM Zaida Garcia * How difficult have these problems made it for you to do your work, take care of things at home, or get along with other people? Answer Date of Assessment Author Not difficult at all 08/26/2025 10:24 AM Renetta Kaufman documented as of this encounter Miscellaneous Notes * Assessment & Plan Note - Janet Saldivar, PA - 08/26/2025 10:00 AM EST Associated Problem(s): Crohn's disease of small intestine without complication -Continue 300 mg vedolizumab every 8 weeks. - Routine monitoring labs are being completed and reviewed with each infusion to evaluate for potential leukopenia, anemia, thrombocytopenia, transaminitis, hypoalbuminemia, inflammation, and diseaseactivity. Most recent infusion was in June but most recent available labs 05/04/2025 reviewed and essentially unremarkable with the exception of minimal normocytic anemia. - Borderline elevated fecal calprotectin of 103 as of 11/2024 but in good range for Crohn's disease. - No active IBD on colonoscopy 01/2025. - Follow-up in 6 months. Orders: Follow Up GI; Future Colonoscopy; Future * Progress Notes - Janet Saldivar PA - 08/26/2025 10:00 AM EST Images from the original note were not included. Subjective Patient ID: Sadi Marshall is a 59 y.o. male. Chief Complaint Patient presents with Crohn's disease of small intestine without complication HPI Mr. Marshall is a very pleasant 59 year old male seen in clinic today for follow-up of ileal Crohn's disease, which was diagnosed in 2013. CTE from 01/19/2022 reviewed and noted subtle patchy inner wall hyperenhancement of the TI, which could be related to underdistension or may representmild active disease. Colonoscopy from 02/18/2023 reviewed and indicated active ileal disease. At time of procedure he was treated with 75 mg/day of azathioprine, which was decreased from higher dose due to leukopenia. Following procedure treatment was transitioned to vedolizumab of which he is now receiving 300 mg every 8 weeks. Most recent colonoscopy 01/29/2025 did not show evidence of active Crohn's; 4 mm sessile serrated lesion was resected from the cecum; 5 mm tubular adenoma was resected from the transverse colon. Today Sadi continues to report feeling well overall. He was due for infusion today but had to reschedule due to clinic appointment scheduled at the same time. He denies abdominal pain. He is having 1-2 BM/day without evidence of melena or hematochezia. He does not acknowledge any N/V, unintentional weight loss, decreased appetite, or fevers. His energy level is fair. He is a non-smoker. The following portions of the chart were reviewed this encounter and updated as appropriate: Tobacco Allergies Meds Problems Med Hx Surg Hx Fam Hx Review of Systems Constitutional: Negative for appetite change, chills, fatigue, fever and unexpected weight change. Gastrointestinal: Negative for abdominal pain, blood in stool, constipation, diarrhea, nausea and vomiting. All other systems reviewed and are negative. Objective Physical Exam Vitals reviewed. Constitutional: Appearance: Normal appearance. He is normal weight. HENT: Head: Normocephalic. Right Ear: External ear normal. Left Ear: External ear normal. Nose: Nose normal. Eyes: General: No scleral icterus. Conjunctiva/sclera: Conjunctivae normal. Cardiovascular: Rate and Rhythm: Normal rate and regular rhythm. Heart sounds: Normal heart sounds. Pulmonary: Effort: Pulmonary effort is normal. Breath sounds: Normal breath sounds. Abdominal: General: Abdomen is flat. Bowel sounds are normal. Palpations: Abdomen is soft. There is no mass. Tenderness: There is no abdominal tenderness. Musculoskeletal: General: Normal range of motion. Cervical back: Normal range of motion and neck supple. Skin: General: Skin is warm and dry. Neurological: Mental Status: He is alert and oriented to person, place, and time. Psychiatric: Mood and Affect: Mood normal. Behavior: Behavior normal. Thought Content: Thought content normal. Judgment: Judgment normal. Surgical Pathology Exam: [id number] Order: [id number] Collected 01/29/2025 Status: Final result Dx: Crohn's disease, unspecified, without... Test Result Released: Yes (seen) 0 Result Notes View Follow-Up Encounter Component Final Diagnosis A. LARGE INTESTINE, CECUM, POLYP, BIOPSY: - SESSILE SERRATED LESION. B. LARGE INTESTINE, RIGHT COLON, BIOPSY: - NEGATIVE FOR ACTIVE DISEASE OR DYSPLASIA (CLINICAL OF CROHN'S DISEASE). C. LARGE INTESTINE, LEFT COLON, BIOPSY: - NEGATIVE FOR ACTIVE DISEASE OR DYSPLASIA (CLINICAL OF CROHN'S DISEASE). D. LARGE INTESTINE, TRANSVERSE COLON, POLYP, BIOPSY: - TUBULAR ADENOMA. at 1412 EDT Clinical Information Crohn's disease, [...] was otherwise normal in appearance (SES-CD 0). Assessment/Plan Assessment & Plan Crohn's disease of small intestine without complication -Continue 300 mg vedolizumab every 8 weeks. - Routine monitoring labs are being completed and reviewed with each infusion to evaluate for potential leukopenia, anemia, thrombocytopenia, transaminitis, hypoalbuminemia, inflammation, and diseaseactivity. Most recent infusion was in June but most recent available labs 05/04/2025 reviewed and essentially unremarkable with the exception of minimal normocytic anemia. - Borderline elevated fecal calprotectin of 103 as of 11/2024 but in good range for Crohn's disease. - No active IBD on colonoscopy 01/2025. - Follow-up in 6 months. Orders: Follow Up GI; Future Colonoscopy; Future Long-term current use of vedolizumab - Recommend keeping all adult immunizations up-to-date. Mr. Marshall is planning to receive his influenza vaccine from his local pharmacy later today. - Annual TB screening is up-to-date (due 02/2026). Adenomatous polyp of colon, unspecified part of colon - Resected during most recent colonoscopy. Surveillance recommended in one year (due 01/2026). Orders: Colonoscopy; Future documented in this encounter Plan of Treatment Upcoming Encounters Date Type Department Care Team (Late st Contact Info) Description 01/31/2026 8:50 AM EDT Clinical Support [facility] Lab [address], [address] [place] [phone] 01/31/2026 9:50 AM EDT Office Visit [facility] Urology [address], [address] [place] [phone] Yolande House PA [address] [place] [address] 03/01/2026 10:00 AM EDT Office [facility] [place] [facility] [address], [address] [place] [address] Janet Saldivar PA [address] [place] [phone] Scheduled Orders Name Type Priority Associated Diagnoses Orde r Schedule Colonoscopy Endoscopy Routine Crohn's disease of small intestine without complication Adenomatous polyp of colon, unspecified part of colon Expected: 08/26/2025, Expires: 02/23/2027 Scheduled Referrals Name Type Priority Associated Diagnoses Orde r Schedule Follow Up GI Outpatient Referral Routine Crohn's disease of small intestine without complication Expected: 02/23/2026, Expires: 09/25/2026 documented as of this encounter Visit Diagnoses Diagnosis Crohn's disease of small intestine without complication- Primary Long-term current use of vedolizumab Adenomatous polyp of colon, unspecified part of colon documented in this encounter Additional Health Concerns Assessment Noted Time PHQ-9 Depression Total Score: 3 08/26/20 10:24 AM EST A fall risk assessment has been complete d for the patient 08/26/2025 10:25 AM EST A Body Mass Index follow-up plan has been documented for the patient 08/26/2025 1:03 PM EST documented as of this encounter Care Teams Lehr Loader Relationship Specialty Start Date End Date Tomer Back MD PCP - General Family Medicine 01/21/24 Yolande House PA [address] [place] [address] Physician Orchestra Conductor Urology 07/27/25 documented as of this encounter
[2025-08-30 09:00] VITALS: BMI 28.5
--- OUTSIDE RECORDS SUMMARY | 2025-08-30 09:10 | XMS_ITS | Encounter Summary ---
Author Organization [facility] Address [address] [place] [address] Care Team Providers Care Functional Manager Name Role Phone Tomer Back MD Primary Care Provider Yolande Griffiths Unavailable [phone] Encounter Details Date Type Department Care Team (Latest Contact Info) Description 07/27/2025 Travel Social History Tobacco Use Types Packs/Day Years [...] Gabriel villeda documented as of this encounter Plan of Treatment Upcoming Encounters Date Type Department Care Team (Late st Contact Info) Description 01/31/2026 8:50 AM EDT Clinical Support [facility] Lab [address], [address] [place] [phone] 01/31/2026 9:50 AM EDT Office Visit [facility] Urology [address], [address] [place] [address] Yolande House PA [address] [place] [phone] 03/01/2026 10:00 AM EDT Office Visit [facility] Medicine Specialties [address], [address] [place] [phone] Janet Saldivar PA [address] [place] [address] documented as of this encounter [...] documented as of this encounter Care Teams Functional Manager Relationship Specialty Start Date End Date Tomer Back MD PCP - General Family Medicine 01/21/24 Yolande House PA [address] [place] [phone] Physician Broadcast Operations Technician Urology 07/27/25 documented as of this encounter
--- OUTSIDE RECORDS SUMMARY | 2025-08-30 09:10 | XMS_ITS | Encounter Summary ---
Author Organization [facility] Address [address] [place] [address] Care Team Providers Care Aba Tutor Name Role Phone Tomer Back MD Primary Care Provider Yolande Griffiths Unavailable [phone] Reason for Visit * Reason Comments Med Refill Encounter Details Date Type Department Care Team (Late st Contact Info) Description 07/10/2021 Refill [place] [facility] [address], [address] [place] [address] Janet Saldivar PA [address] [place] [address] Social History Tobacco Use Types [...] Description 01/31/2026 8:50 AM EDT Clinical Support [facility] Lab [address], [address] [place] [address] 01/31/2026 9:50 AM EDT Office Visit [facility] Urology [address], [address] [place] [address] Yolande House PA [address] [place] [address] 03/01/2026 10:00 AM EDT Office Visit [facility] Medicine Specialties [address], [address] [place] [address] Janet Saldivar PA [address] [place] [address] documented as of this encounter Visit Diagnoses Not on filedocumented in this encounter Additional Health Concerns Assessment Noted Time A fall risk assessment has been complete d for the patient 06/13/2021 10:09 AM EDT documented as of this encounter Care Teams Aba Tutor Relationship Specialty Start Date End Date Tomer aBck MD PCP - General Family Medicine 01/21/24 Yolande House PA [address] [place] [address] Physician Staff Appraiser Urology 07/27/25 documented as of this encounter
--- OUTSIDE RECORDS SUMMARY | 2025-08-30 09:10 | XMS_ITS | Patient Health Record ---
Author Organization [facility] Address [address] [place] [address] [facility] [address] [place] [address] Care Team Providers Care Room Manager Name Role Phone Randy Gates Primary [...] review and pick correct strength-formulatio n from [employer] options. If intended option is not shown, discontinue and re-order from Quick Search* Active amLODIPine Besylate 5 MG TAKE 1 TABLET BY MOUTH ONCE DAILY; Duration: 30 Active Aspirin 81 MG 1 TAB(S) ORALLY ONCE A DAY *Please review and pick correct strength-formulatio n from [employer] options. If intended option is not shown, discontinue and re-order from Quick Search* Active Rosuvastatin Calcium 5 MG 1 CAP(S) ORALLY ONCE A DAY; Duration: 90 DAYS *Please review and pick correct strength-formulatio n from [employer] options. If intended option is not shown, [...] W/U Status Risk Notes Problem Mixed hyperlipidemia (012586279) Mixed hyperlipidemia (E78.2) Active confirmed Problem Essential hypertension (53128462) HTN (hypertension), benign (I10) Active confirmed Problem Umbilical hernia (498153493) Umbilical hernia without obstruction and without gangrene (K42.9) Active confirmed Problem Crohn's disease (25146438) Crohns disease without complication, unspecified gastrointestinal tract location (K50.90) Active confirmed Problem History of malignant basal cell neoplasm of skin (situation) (047505177) History of basal cell carcinoma of skin (Z85.828) Active confirmed Problem Asymptomatic microscopic hematuria (4146045994077379 9) Asymptomatic microscopic hematuria (R31.21) Active confirmed Problem Tinnitus of left ear (7628074847670) Tinnitus of left ear (H93.12) Active confirmed Encounters Encounter Location Date Provider Diagnosis [facility] [address] [place], [place] [address] 01/23/2025 Provider Migration Herpes zoster withou t [...] Insured Coverage Start Date Coverage End Date [facility] [address] [place] [address] [id number] Sadi Thompson Self - patient is the insured Medications Administered Medication Instructions Date of Administration Dosage Notes Kenalog 08/17/2014 1 mL Kenalog 12/14/2015 1 mL Medical (General) History Medical History History ICD Code HLD Low back pain Crohns HTN skin cancer Surgical History Surgery Date(Month/Year) skin ca removed Colonoscopy 2014 colonoscopy 2016 skin cancer removed 2019
--- OUTSIDE RECORDS SUMMARY | 2025-08-30 09:10 | XMS_ITS | Clinical Summary ---
Author Organization [facility] Address [address] [place] [address] Care Team Providers Care Patient Registrar Name Role Phone Tomer Back MD Primary Care Provider Yolande Griffiths PA Unavailable [phone] Allergies Active Allergy Reactions Criticality Noted Date [...] Active Additional Information Patient not taking.Reported on 08/26/2025 KLW-IPk-OgTj-NaSu lf-Na Asc-C 100 g reconstituted solution At 5PM on day before colonoscopy mix and drink 1st dose. Mix and drink 2nd dose 6hrs before leaving house on day of colonoscopy 1 each 5 Active Additional Information Patient not taking.Reported on 08/26/2025 tamsulosin (Flomax) 0.4 MG 24 hr capsule Take 1 capsule by mouth 1 time each day with dinner. 30 capsule 5 5 026 Active Active Problems Problem Noted Date Diagnosed Date Umbilical hernia without obstruction and without gangrene 12/15/2024 Pseudogout 12/15/2024 Hypertension 12/15/2024 Asymptomatic microscopic hematuria 12/15/2024 Hyperlipidemia, unspecified 08/31/2024 Elevated prostate specific antigen (PSA) 024 Basal cell carcinoma (BCC) of left lower eyelid 05/29/2022 Overview (05/29/2022): Added automatically from request for surgery [id number] Crohn's disease of small intestine without compl ication 02/06/2022 Assessment & Plan (08/26/2025 1:03 PM EST): -Continue 300 mg vedolizumab every 8 weeks. - Routine monitoring labs are being completed and reviewed with each infusion to evaluate for potential leukopenia, anemia, thrombocytopenia, transaminitis, hypoalbuminemia, inflammation, and disease activity. Most recent infusion was in June but most recent available labs 05/04/2025 reviewed and essentially unremarkable with the exception of minimal normocytic anemia. - Borderline elevated fecal calprotectin of 103 as of 11/2024 but in good range for Crohn's disease. - No active IBD on colonoscopy 01/2025. - Follow-up in 6 months. Orders: Follow Up GI; Future Colonoscopy; Future Decreased white blood cell count 05/06/2018 Basal cell carcinoma 05/24/2016 Crohn's disease 10/05/2014 Encounters Date Type Department Care Team Description 08/26/2025 10:00 AM EST Office Visit [facility] Medicine Specialties [address], [address] [place] [address] Janet Saldivar, PA Crohn's disease of small intestine without complication (Primary Dx); Long-term current use of vedolizumab; Adenomatous polyp of colon, unspecified part of colon 08/26/2025 Travel 07/27/2025 3:00 PM EDT Office Visit [facility] [address], [address] [place] [address] Yolande House PA Lower urinary tract symptoms (Primary Dx); Elevated PSA 07/27/2025 Travel from Last 3 Months Immunizations Immunization Administration [...] Mass Index 29.27 08/26/2025 10:21 AM EST Plan of Treatment Upcoming Encounters Date Type Department Care Team (Late st Contact Info) Description 01/31/2026 8:50 AM EDT Clinical Support [facility] Lab [address] [place] [address] 01/31/2026 9:50 AM EDT Office Visit [facility] Urology [address], [address] [place] [address] Yolande House PA [address] [place] [address] 03/01/2026 10:00 AM EDT Office Visit [facility] Medicine Specialties [address], [address] [place] [address] Janet Saldivar PA [address] [place] [address] Health Maintenance Due Date Last Done Comments [facility]-HIV Screening 1964 [facility]-Hepatitis C Screening 1964 [facility]-Infant/Child/Adol SDOH Screenings 1964 [facility]- SDOH Screenings 1982 [facility]-Adult SDOH Screenings 1982 [facility]-Pneumococcal Vaccine: 50+ Years (1 of 2 - PCV) 12/31/1983 [facility]-Zoster Vaccines (1 of 2) 12/31/1983 CT Colonography 2009 FIT-DNA 2009 FIT 2009 FOBT 2009 Sigmoidoscopy 2009 [id number] Vaccine ( season) 2025 10/19/2021, 01/12/2021, 12/15/2020 [facility]-Influenza Vaccine (#1) 2025 09/06/2015 [facility]-Depression Screening 08/26/2026 025, 08/26/2025, 12/26/2021 [facility]-DTaP,Tdap,and Td Vaccines (2 - Td or Tdap) 02/13/2033 02/13/2023 Colonoscopy 01/29/2035 01/29/2025, 01/19, 01/08/2025, Additional history exists [facility]-Colorectal Cancer Screening 01/29/2035 [facility]-RSV Vaccine: 60+ Years or (1 - 1-dose 75+ series) 12/31/2039 [facility]-Obesity Intervention Completed 025, 07/27/2025, 01/25/2025, Additional history exists HPV Vaccines Aged Out [...] 3:07 PM EDT Lower urinary tract symptoms PROSTATE SPECIFIC ANTIGEN, DIAGNOSTIC, SERUM Routine 07/27/2025 2:06 PM EDT Elevated PSA COLONOSCOPY 01/29/2025 11:28 AM EDT from Last 3 Months or Most Recently Relevant to Health Maintenance Results * POC US Bladder Volume (07/27/2025 3:07 PM EDT) Urine, Volume 34 mL IMAGING Anatomical Region Laterality Modality Other Yolande BANUELOS IMG POINT OF CARE ULTRASOUN D Final Result * PSA, diagnostic (07/27/2025 2:06 PM EDT) PSA, Diagnostic, Serum 3.14 0.00 - 4.50 ng/mL 07/27/2025 4:58 PM EDT [facility] Blood Venous blood specimen / Unknown Venipuncture / Unknown 07/27/2025 2:06 PM EDT 07/27/2025 2:06 PM EDT Narrative [facility] - 07/27/2025 4:58 PM EDT Performed by Yvette electrochemiluminescent immunoassay which is standardized against the PSA Jignesh Reference Standard (WHO 96/670). Results obtained with different test methods or kits cannot be used interchangeably. Yolande BANUELOS LAB BLOOD ORDERABLES Final Result [facility] [address] [place] [address] * Colonoscopy (01/29/2025 11:28 AM EDT) Anatomical Region Laterality Modality Endoscopy 01/29/2025 10:5 7 AM EDT Impressions 01/29/2025 11:28 AM EDT Please see media tab for the result. Information added by interface. Narrative Procedure Note Clare Cardona MD - 01/29/2025 IMPRESSION: Please see media tab for the result. Information added by interface. External Provider GI PROCEDURE ORDERABLES Final Result from Last 3 Months or Most Recently Relevant to Health Maintenance Insurance [facility] MEDICAID Care Teams Patient Registrar Relationship Specialty Start Date End Date Tomer Back MD PCP - General Family Medicine 01/21/24 Yolande House PA [address] [facility] [address] [place] [address] Physician Postal Mail Carrier Urology 07/27/25
--- OUTSIDE RECORDS SUMMARY | 2025-08-30 09:10 | XMS_ITS | Encounter Summary ---
Author Organization [facility] Address [address] [place] [address] Care Team Providers Care Supervisory Lifeguard Name Role Phone Tomer Back MD Primary Care Provider Yolande Griffiths Unavailable [phone] Encounter Details Date Type Department Care Team (Latest Contact Info) Description 08/26/2025 Travel Social History Tobacco Use Types Packs/Day [...] way Not at all 08/26/2025 10:24 AM Renetta Garcia Patient Health Questionnaire-9 Score 3 08/26/2025 10:24 AM Zaida Garcia * How difficult have these problems made it for you to do your work, take care of things at home, or get along with other people? Answer Date of Assessment Author Not difficult at all 08/26/2025 10:24 AM Renetta Kaufman documented as of this encounter Plan of Treatment Upcoming Encounters Date Type Department Care Team (Late st Contact Info) Description 01/31/2026 8:50 AM EDT Clinical Support [facility] [address], [address] [place] [address] 01/31/2026 9:50 AM EDT Office Visit [facility] Urology [address], [address] [place] [address] Yolande House PA [address] [place] [address] 03/01/2026 10:00 AM EDT Office Visit [facility] [address], [address] [place] [address] Janet Saldivar PA [address] [place] [address] documented as of this encounter Visit Diagnoses Not on filedocumented in this encounter Additional Health Concerns Assessment Noted Time PHQ-9 Depression Total Score: 3 08/26/20 25 10:24 AM EST A fall risk assessment has been complete d for the patient 08/26/2025 10:25 AM EST A Body Mass Index follow-up plan has been documented for the patient 08/26/2025 1:03 PM EST documented as of this encounter Care Teams Supervisory Lifeguard Relationship Specialty Start Date End Date Tomer Back MD PCP - General Family Medicine 01/21/24 Yolande House PA [address] [place] [address] Physician Ship Surveyor Urology 07/27/25 documented as of this encounter
--- OUTSIDE RECORDS SUMMARY | 2025-08-30 09:10 | XMS_ITS | Encounter Summary ---
Author Organization [facility] Address [address] [place] [address] Care Team Providers Care Rework Operator Name Role Phone Tomer Back MD Primary Care Provider Yolande Griffiths Unavailable [phone] Reason for Visit * Reason Comments Med Refill Encounter Details Date Type Department Care Team (Late st Contact Info) Description 08/29/2021 Refill [facility] Medicine Specialties [address], [address] [place] [address] Janet Saldivar PA [address] [place] [address] Social History Tobacco Use Types [...] 09/11/2021 9:08 AM EST Request faxed to [facility] requesting lab results * Telephone Encounter - Sheba Jimenez RN - 09/07/2021 11:40 AM EST Spoke with patient via phone 09/07/2021-he has not completed labs at this point. He says he will plan to complete 09/07/2021. * Telephone Encounter - Sheba Jimenez RN - 08/29/2021 4:03 PM EST Patient to complete labs at [facility] in [place] next week Orders faxed to [phone]. Follow-up for results. documented in this encounter Plan of Treatment Upcoming Encounters Date Type Department Care Team (Late st Contact Info) Description 01/31/2026 8:50 AM EDT Clinical Support [facility] Lab [address], [address] [place] [address] 01/31/2026 9:50 AM EDT Office Visit [facility] Urology [address], [address] [place] [address] Yolande House PA [address] [place] [address] 03/01/2026 10:00 AM EDT Office Visit [facility] Medicine Specialties [address] [place] [address] Janet Saldivar PA [address] [place] [address] documented as of this encounter Visit Diagnoses Not on filedocumented in this encounter Additional Health Concerns Assessment Noted Time A fall risk assessment has been complete d for the patient 06/13/2021 10:09 AM EDT documented as of this encounter Care Teams Rework Operator Relationship Specialty Start Date End Date Tomer Back MD PCP - General Family Medicine 01/21/24 Yolande House PA [address] [facility] [address] [place] [address] Physician Outreach Rep Urology 07/27/25 documented as of this encounter
--- OUTSIDE RECORDS SUMMARY | 2025-08-30 09:10 | XMS_ITS | Encounter Summary ---
Author Organization [facility] Address [address] [place] [address] Care Team Providers Care Manager Housekeeping Name Role Phone Tomer Back MD Primary Care Provider Yolande Griffiths Unavailable [phone] Encounter Details Date Type Department Care Team (Late Contact Info) Description 12/05/2023 Orders Only External Location [address] [place] [address] Fabrice Barber MD [address] [place] [address] Social History Tobacco Use Types Packs/Day Years [...] Department Care Team (Late Contact Info) Description 01/31/2026 8:50 AM EDT Clinical Support [facility] [address] [place] [address] 01/31/2026 9:50 AM EDT Office Visit [facility] Urology [address] [place] [address] Yolande House PA [address] [place] [address] 03/01/2026 10:00 AM EDT Office Visit [facility] Medicine Specialties [address] [place] [address] Janet Saldivar PA [address] [place] [address] documented as of this encounter [...] documented as of this encounter Care Teams Manager Housekeeping Relationship Specialty Start Date End Date Tomer Back MD PCP - General Family Medicine 01/21/24 Yolande House PA [address] [place] [address] Physician Manufacturing Technology Professor Urology 07/27/25 documented as of this encounter
--- OUTSIDE RECORDS SUMMARY | 2025-08-30 09:10 | XMS_ITS | Clinical Summary ---
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
--- OUTSIDE RECORDS SUMMARY | 2025-08-30 09:10 | XMS_ITS | Referral Summary ---
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
--- OUTSIDE RECORDS SUMMARY | 2025-08-30 09:10 | XMS_ITS ---
Author Organization [facility] Address [address] [place] [address] Care Team Providers Care Manager Data Warehouse Name Role Phone Tomer Back MD Primary Care Provider Yolande Griffiths Unavailable Active Problems Problem Noted Date Diagnosed Date Umbilical hernia without obstruction and without gangrene 12/15/2024 Pseudogout 12/15/2024 Hypertension 12/15/2024 Asymptomatic microscopic hematuria 12/15/2024 Hyperlipidemia, unspecified 08/31/2024 Elevated prostate specific antigen (PSA) 024 Basal cell carcinoma (BCC) of left lower eyelid 05/29/2022 Overview (05/29/2022): Added automatically from request for surgery [id number] Crohn's disease of small intestine without compl [...] disease of small int estine without complication Treatment Medications No medications scheduled. Past Treatment and Therapy Plans
--- OUTSIDE RECORDS SUMMARY | 2025-08-30 09:10 | XMS_ITS | Encounter Summary ---
Author Organization [facility] Address [address] [place] [address] Care Team Providers Care Fruit Packer Name Role Phone Tomer Back MD Primary Care Provider Corine vailable Encounter Details Date Type Department Care Team (Late st Contact Info) Description 05/05/2025 Results Follow-Up [facility] Medicine Specialties [address], [address] [place] [address] Janet Saldivar PA [address] [place] [address] Social History Tobacco Use Types [...] [facility] [address], [address] [place] [address] 01/31/2026 9:50 AM EDT Office Visit [facility] Urology [address], [address] [place] [address] Yolande House PA [address] [place] [address] 03/01/2026 10:00 AM EDT Office Visit [facility] Medicine Specialties [address], [address] [place] [address] Janet Saldivar PA [address] [place] [address] documented as of this encounter [...] documented as of this encounter Care Teams Fruit Packer Relationship Specialty Start Date End Date Tomer Back MD PCP - General Family Medicine 01/21/24 documented as of this encounter
--- OUTSIDE RECORDS SUMMARY | 2025-08-30 09:11 | XMS_ITS | Encounter Summary ---
Author Organization [facility] Address [address] [place] [address] Care Team Providers Care Cnc Machine Setter Name Role Phone Tomer Back MD Primary Care Provider Yolande Griffiths PA Unavailable [phone] Encounter Details Date Type Department Care Team (Latest Contact Info) Description 01/29/2025 Lab Requisition [facility] [address] [place] [address] Clare Cardona MD [address] [place] [address] Crohn's disease, unspecified, without complications (CMS/HCC) Social [...] Description 01/31/2026 8:50 AM EDT Clinical Support [facility] Lab [address] [place] [address] 01/31/2026 9:50 AM EDT Office Visit [facility] Urology [address], [address] [place] [address] Yolande House PA [address] [place] [address] 03/01/2026 10:00 AM EDT Office Visit [facility] Medicine Specialties [address] [place] [address] Janet Saldivar PA [address] [place] [address] documented as of this encounter Procedures Procedure Name Priority Date/Time Associated Diagnosis Comments SURGICAL PATHOLOGY EXAM Routine 01/29/2025 Crohn's disease, unspecified, without complications ([facility]) documented in this encounter Results * Surgical Pathology Exam (01/29/2025) Case Report Surgical Pathology Case: [id number] Authorizing Provider: Clare Cardona MD Collected: 01/29/2025 Ordering Location: [facility] Lab Received: 01/29/2025 1326 Pathologist: Alistair Durant DO Specimens: A) - Cecum, cecum polyp B) - Colon, Right, right colon biopsy C) - Colon, Left, left colon biopsy D) - Transverse Colon, transverse colon polyp 02/01/2025 2:12 PM EDT [facility] Final Diagnosis A. LARGE INTESTINE, CECUM, POLYP, BIOPSY: - SESSILE SERRATED LESION. B. LARGE INTESTINE, RIGHT COLON, BIOPSY: - NEGATIVE FOR ACTIVE DISEASE OR DYSPLASIA (CLINICAL OF CROHN'S DISEASE). C. LARGE INTESTINE, LEFT COLON, BIOPSY: - NEGATIVE FOR ACTIVE DISEASE OR DYSPLASIA (CLINICAL OF CROHN'S DISEASE). D. LARGE INTESTINE, TRANSVERSE COLON, POLYP, BIOPSY: - TUBULAR ADENOMA. 02/01/2025 2:12 PM EDT [facility] at 1412 EDT Clinical Information Crohn's [...] appearance (SES-CD 0). 02/01/2025 2:12 PM EDT [facility] Gross Description A. CECUM POLYP Received [...] Zee C Mar 02/01/2025 2:12 PM EDT [facility] Note: A resident was involved in the service. I attest I examined the relevant preparations for the specimens and confirmed the diagnosis or interpretation. 02/01/2025 2:12 PM EDT [facility] Tissue Transverse colon structure / Unknown 01/29/2025 01/29/2025 1:26 PM EDT Tissue specimen (specimen) Right colon structure / Unknown 01/29/2025 01/29/2025 1:26 PM EDT Tissue specimen (specimen) Left colon structure / Unknown 01/29/2025 01/29/2025 1:26 PM EDT Tissue specimen (specimen) Transverse colon structure / Unknown 01/29/2025 01/29/2025 1:26 PM EDT us Clare Cardona MD LAB PATHOLOGY ORDERABLES Final Result [facility] [address] [place] [address] documented in this encounter Visit Diagnoses Diagnosis [...] documented as of this encounter Care Teams Cnc Machine Setter Relationship Specialty Start Date End Date Tomer Back MD PCP - General Family Medicine 01/21/24 Yolande House PA [id number] [place] [address] Physician Director Of Managed Care Urology 07/27/25 documented as of this encounter
--- OUTSIDE RECORDS SUMMARY | 2025-08-30 09:11 | XMS_ITS | Encounter Summary ---
Author Organization [facility] Address [address] [place] [address] Care Team Providers Care Software Security Architect Name Role Phone Tomer Back MD Primary Care Provider Yolande Griffiths Unavailable [phone] Reason for Visit * Reason Comments Med Refill Encounter Details Date Type Department Care Team (Late st Contact Info) Description 09/10/[address] Medicine Specialties [address] [place] [address] Janet Saldivar PA [address] [place] [address] Crohn's disease of small intestine [...] 30 day supply with 2 refill(s) to [facility]. * Telephone Encounter - Sheba Jimenez RN - 09/12/2022 3:11 PM EST Talked with Mr. Marshall via phone-he has a few days left of AZA he will plan to complete labs at [facility] next week. Orders faxed. * Telephone [...] Description 01/31/2026 8:50 AM EDT Clinical Support [facility] [address], [address] [place] [address] 01/31/2026 9:50 AM EDT Office Visit [facility] Urology [address], [address] [place] [address] Yolande House PA [address] [place] [address] 03/01/2026 10:00 AM EDT Office Visit [facility] Medicine Specialties [address], [address] [place] [address] Janet Saldivar PA [address] [place] [address] documented as of this encounter Visit Diagnoses Diagnosis Crohn's disease of small intestine without complication documented in this encounter Additional Health Concerns Assessment Noted Time A fall risk assessment has been complete d for the patient 08/08/2022 2:17 PM EDT documented as of this encounter Care Teams Software Security Architect Relationship Specialty Start Date End Date Tomer Back MD PCP - General Family Medicine 01/21/24 Yolande House PA [address] [facility] [address] [place] [address] Physician Recruiter Coordinator Urology 07/27/25 documented as of this encounter
--- OUTSIDE RECORDS SUMMARY | 2025-08-30 09:11 | XMS_ITS | Encounter Summary ---
Author Organization [facility] Address [address] [place] [address] Care Team Providers Care Forest Engineer Name Role Phone Tomer Back MD Primary Care Provider Yolande Griffiths Unavailable Reason for Visit * Reason Comments Med Refill Encounter Details Date Type Department Care Team (Late st Contact Info) Description 06/11/2022 Refill [facility] [address] [place] [address] Janet Saldivar PA [address] [place] [address] Crohn's disease of small intestine [...] Description 01/31/2026 8:50 AM EDT Clinical Support [facility] [address] [place] [address] 01/31/2026 9:50 AM EDT Office Visit [facility] Urology [address] [place] [address] Yolande House PA [address] [place] [address] 03/01/2026 10:00 AM EDT Office Visit [facility] Medicine Specialties [address], [address] [place] [address] Janet Saldivar PA [address] [place] [address] documented as of this encounter Visit Diagnoses Diagnosis Crohn's disease of small intestine without complication documented in this encounter Additional Health Concerns Assessment Noted Time A fall risk assessment has been complete d for the patient 05/29/2022 1:14 PM EDT documented as of this encounter Care Teams Forest Engineer Relationship Specialty Start Date End Date Tomer Back MD PCP - General Family Medicine 01/21/24 Yolande House PA [address] [place] [address] Physician Breaking Machine Operator Urology 07/27/25 documented as of this encounter
[2025-08-30 09:18] LABS: Hematocrit 41.9 % (42.0-52.0); Hemoglobin 14.4 g/dL (14.1-18.0); Immature Granulocytes % 0.4 %; Mean Corpuscular HGB Conc 34.4 g/dL (31.8-35.4); Mean Corpuscular Hemoglobin 30.6 pg (27.0-31.2); Mean Corpuscular Volume 89.0 fl (80-94); Nucleated Red Blood Cells % 0 %; Platelet Count 268 K/mm3 (142-424); Red Blood Count 4.71 M/mm3 (4.60-6.20); Red Cell Distribution Width-SD 41.0 fL; White Blood Count 6.8 K/mm3 (4.8-10.8)
[2025-08-30 09:23] VITALS: BP 145/73; PULSE 84; RESP 14; TEMP 36.6; O2SAT 98
[2025-08-30] MEDS: SODIUM CHLORIDE 0.9% 10ML FLUSH SYRINGE 10 ML IV (09:23)
[2025-08-30] MEDS: VEDOLIZUMAB 300 MG in 0.9 % SODIUM CHLORIDE 250 ML 500 MG IV (09:23)
[2025-08-30 09:37] LABS: Alanine Aminotransferase 56 U/L (12-78); Albumin Level 4.2 g/dl (3.5-5.0); Albumin/Globulin Ratio 1.3 (1.1-1.8); Alkaline Phosphatase 93 U/L (38-126); Anion Gap 9.1 mEq/L (5-15); Aspartate Amino Transferase 42 U/L (17-59); Bilirubin,Total 0.6 mg/dl (0.2-1.3); Blood Urea Nitrogen 18 mg/dl (9-20); Calcium 9.1 mg/dl (8.4-10.2); Carbon Dioxide 27 mmol/L (22.0-30.0); Chloride 103 mmol/L (98-107); Creatinine Clearance Estimated 115 mL/min (50-200); Creatinine,Serum 0.90 mg/dl (0.66-1.25); Estimated Glomerular Filt Rate 86 ml/min (>60); GFR (African American) 104 ML/MIN (>60); Globulin 3.2 g/dL (1.3-3.2); Glucose 105 mg/dl (74-100); Potassium 4.1 mmoL/L (3.5-5.1); Sodium 135 mmol/L (136-145); Total Protein,Serum 7.4 g/dl (6.3-8.2)
[2025-08-30 09:42] LABS: C-Reactive Protein 2.2 mg/L (0-4)
[2025-08-30 10:00] VITALS: BP 138/71; PULSE 72; RESP 14; O2SAT 98
== END 2025-08-30 23:59 | disposition home or self-care (01) ==
LOC: INF 08:57
PROVIDERS: PCP Family Medicine; Visit Provider Physician Assistant
DX: K50.00 Crohn's disease of small intestine without complications (principal)
CPT/HCPCS: 80053; 85025; 86140; 96365; J3380; J7050